=== PATIENT | female | born 1970 | race Caucasian/White ===

== ENCOUNTER 2016-06-15 10:22 | Emergency (ER) | payer SELFPAY ==
[~2016-06-15 10:22] MED LIST: CREO3000 PO; ESTR1TAB PO; HYDR25TA5 PO; LISI-515 PO; NORC5TAB PO; PROT40TA PO; VITA100T2 PO
[2016-06-15 10:45] VITALS: BP 154/90; PULSE 95; RESP 18; TEMP 98; O2SAT 99
[2016-06-15] MEDS ORDERED: SODIUM CHLOR 0.9% 1000 ML INJ 1,000 ML IV SCH (10:51)
--- NOTE | 2016-06-15 10:59 | PD ---
HPI Chief Complaint: Chest Pain Time Seen by Provider: 10:44 Travel History International Travel<30 days: No Contact w/Intl Traveler<30days: No Traveled to known affect area: No History of Present Illness HPI 45yo F with PMH of cirrhosis, hep c, chronic alcohol abuse presents to the ED with c/o epigastric abdominal pain today associated with NBNB vomiting. States she started having mid parietal headache after vomiting. Pain is epigastric and nonradiating. Denies any fever, chest pain, sob, urinary complaints, focal weakness or numbness. Headache is associated with photophobia but denies any neck pain, visual changes. PFSH Past Medical History Arthritis: Yes Asthma: No Blood Disorders: No Anxiety: No Depression: No Heart Rhythm Problems: No Cancer: No Cardiac Catheterization: No Cardiovascular Problems: Yes (HTN) High Cholesterol: No Chemotherapy: No Chest Pain: No Congestive Heart Failure: No Cirrhosis: Yes (hepatitis c ) COPD: No Diabetes: No Diminished Hearing: No Endocrine: No (PT STATES BEING TESTED NOW) Gastrointestinal Disorders: Yes (Liver Cirrhosis, pancreatitis) Genitourinary: Yes Hepatitis: Yes (C/CIRRHOSIS) Hypertension: Yes Immune Disorder: No Implanted Vascular Access Dvce: No Kidney Stones: Yes Musculoskeletal: Yes Neurologic: No Psychiatric: No Reproductive: No Respiratory: No Immunizations Current: No Pancreatitis: Yes Radiation Therapy: No Sleep Apnea: No Thyroid Disease: No ?: Not Menopausal: Yes : 0 Para: 0 Miscarriage: 0 : 0 Past Surgical History Abdominal Surgery: Yes (ERCP) Appendectomy: Yes Cholecystectomy: Yes Coronary Artery Bypass Graft: No Hysterectomy: Yes Pacemaker: No Other Surgery: Yes (hysterectomy,appendectomy, cholecystectomy) Family History Family Hypercholesterolemia: Yes (FATHER) Social History Alcohol Use: Yes (6 a day) Tobacco Use: Yes (1/2 pack per day ) Substance Use: No Allergies-Medications (Allergen,Severity, Reaction): Coded Allergies: Codeine (Verified Adverse Reaction, Severe, itching, 06/15/16) Reported Meds & Prescriptions Reported Meds & Active Scripts Active Omeprazole 40 Mg Cap 40 Mg PO DAILY 14 Days Reported Hydrochlorothiazide 25 Mg Tab 25 Mg PO Q8HR Lisinopril 20 Mg Tab 20 Mg PO DAILY Estradiol 1 Mg Tab 1 Mg PO DAILY Review of Systems Except as stated in HPI: all other systems reviewed are Neg Physical Exam Narrative GENERAL: 45yo F in mild distress. SKIN: Warm and dry. HEAD: Atraumatic. Normocephalic. EYES: Pupils equal and round. No scleral icterus. No injection or drainage. EOMI. NECK: Trachea midline. No JVD. No nuchal rigidity. CARDIOVASCULAR: Regular rate and rhythm. No murmur appreciated. RESPIRATORY: No accessory muscle use. Clear to auscultation. Breath sounds equal bilaterally. GASTROINTESTINAL: Abdomen soft, +TTP epigastric region. No rebound tenderness or guarding. MUSCULOSKELETAL: No obvious deformities. No clubbing. No cyanosis. No edema. NEUROLOGICAL: Awake and alert. No obvious cranial nerve deficits. Motor grossly within normal limits. Normal speech. PSYCHIATRIC: Appropriate mood and affect; insight and judgment normal. Data Data Last Documented VS Vital Signs Date Time Temp Pulse Resp B/P Pulse Ox O2 Delivery O2 Flow Rate FiO2 06/15/16 12:55 78 16 133/69 98 Room Air 06/15/16 10:45 98.0 Orders Complete Blood Count With Diff (06/15/16 10:51) Comprehensive Metabolic Panel (06/15/16 10:51) Lipase (06/15/16 10:51) Prothrombin Time / Inr (Pt) (06/15/16 10:51) Urinalysis - C+S If Indicated (06/15/16 10:51) Ct Abd/Pel W Iv Contrast(Rout) (06/15/16 10:51) Iv Access Insert/Monitor (06/15/16 10:51) Ecg Monitoring (06/15/16 10:51) Oximetry (06/15/16 10:51) Morphine Inj (Morphine Inj) (06/15/16 11:00) Ondansetron Inj (Zofran Inj) (06/15/16 11:00) Sodium Chlor 0.9% 1000 Ml Inj (Ns 1000 M (06/15/16 10:51) Sodium Chloride 0.9% Flush (Ns Flush) (06/15/16 11:00) Troponin I (06/15/16 10:51) Iohexol 350 Inj (Omnipaque 350 Inj) (06/15/16 12:17) Pantoprazole Inj (Protonix Inj) (06/15/16 12:45) Al-Mag Hy-Si 40-40-4 Mg/Ml Liq (Mag-Al P (06/15/16 12:45) Lidocaine 2% Viscous (Xylocaine 2% Visco (06/15/16 12:45) Labs Laboratory Tests Test 06/15/16 06/15/16 10:35 11:15 White Blood Count 4.4 TH/MM3 Red Blood Count 4.53 MIL/MM3 Hemoglobin 14.0 GM/DL Hematocrit 41.8 % Mean Corpuscular Volume 92.4 FL Mean Corpuscular Hemoglobin 30.9 PG Mean Corpuscular Hemoglobin 33.4 % Concent Red Cell Distribution Width 14.6 % Platelet Count 114 TH/MM3 Mean Platelet Volume 8.0 FL Neutrophils (%) (Auto) 60.3 % Lymphocytes (%) (Auto) 30.4 % Monocytes (%) (Auto) 6.0 % Eosinophils (%) (Auto) 1.8 % Basophils (%) (Auto) 1.5 % Neutrophils # (Auto) 2.6 TH/MM3 Lymphocytes # (Auto) 1.3 TH/MM3 Monocytes # (Auto) 0.3 TH/MM3 Eosinophils # (Auto) 0.1 TH/MM3 Basophils # (Auto) 0.1 TH/MM3 CBC Comment DIFF FINAL Differential Comment Prothrombin Time 11.6 SEC Prothromb Time International 1.0 RATIO Ratio Sodium Level 142 MEQ/L Potassium Level 4.1 MEQ/L Chloride Level 106 MEQ/L Carbon Dioxide Level 26.6 MEQ/L Anion Gap 9 MEQ/L Blood Urea Nitrogen 10 MG/DL Creatinine 0.75 MG/DL Estimat Glomerular Filtration 84 ML/MIN Rate Random Glucose 113 MG/DL Calcium Level 8.7 MG/DL Total Bilirubin 0.9 MG/DL Aspartate Amino Transf 165 U/L (AST/SGOT) Alanine Aminotransferase 133 U/L (ALT/SGPT) Alkaline Phosphatase 168 U/L Troponin I LESS THAN 0.02 NG/ML Total Protein 9.1 GM/DL Albumin 3.3 GM/DL Lipase 157 U/L Urine Collection Type CLEAN CATCH Urine Color YELLOW Urine Turbidity CLEAR Urine pH 6.0 Urine Specific [place] 1.021 Urine Protein NEG mg/dL Urine Glucose (UA) NEG mg/dL Urine Ketones TRACE mg/dL Urine Occult Blood NEG Urine Nitrite NEG Urine Bilirubin NEG Urine Leukocyte Esterase NEG Urine RBC 0-3 /hpf Urine WBC 0-2 /hpf Urine Squamous Epithelial > 8 /hpf Cells Urine Bacteria RARE /hpf Urine Mucus FEW /lpf Microscopic Urinalysis Comment CULT NOT INDICATED Urine Collection Time 11:15 [facility] Medical Decision Making Medical Screen Exam Complete: Yes Emergency Medical Condition: Yes Interpretation(s) EKG: Sinus tachycardia at 102bpm. Normal axis. No ST segment elevation or depression. Differential Diagnosis Acute pancreatitis vs. gastritis vs. colitis vs. migraine headache Narrative Course 45yo F with epigastric abdominal pain today that is associated with vomiting and nausea. Pt subsequently had a migraine like headache after vomiting. No neurologic deficits or red flags for headache. Pt does have history of cirrhosis and hep c and chronic alcohol use. Last drink yesterday. Labs reviewed, no leukocytosis. Liver enzymes elevated which she has before. Total bilirubin normal. Troponin negative. Lipase 157. Pt reevaluated after morphine and zofran. States that headache has completely resolved. Still with mild epigastric tenderness. Pt given pantoprazole and GI cocktail. Pt tolerating PO. CTa/p showed no inflammatory changes around pancreas. No findings to indicate bowel obstruction. Pt instructed to stop drinking alcohol and to follow up with GI as outpatient. Return precautions given. VS stable. Diagnosis Primary Impression: Gastritis Qualified Code: K29.00 - Acute gastritis, presence of bleeding unspecified, unspecified gastritis type Patient Instructions: General Instructions Departure Forms: Tests/Procedures, Work Release Enter return to work date: Jun 16, 2016 Additional Instructions: Please follow up with your health informatics instructor as outpatient. Return to the ED if symptoms worsen. Med/Other Pt SpecificInfo: Prescription(s) given Scripts Omeprazole 40 Mg Cap40 Mg PO DAILY 14 Days Ref 0 Prov:Sparkle Cortez DO 06/15/16 Disposition: 01 DISCHARGE HOME Condition: Stable Sparkle Cortez DO Jun 15, 2016 10:59
[2016-06-15] MEDS ORDERED: MORPHINE SULFATE 4 MG/ML INJ IV PUSH ONE (11:00)
[2016-06-15] MEDS ORDERED: SODIUM CHLORIDE 0.9% FLUSH 5 ML FLUSH IVF PRN (11:00)
[2016-06-15] MEDS ORDERED: ONDANSETRON HCL 4 MG/2 ML VIAL IVP ONE (11:00)
[2016-06-15 11:16] LABS: AUTOMATED NEUTROPHIL # 2.6 TH/MM3 (1.8-7.7); BASOPHIL # 0.1 TH/MM3 (0-0.2); BASOPHIL % 1.5 % (0.0-2.0); EOSINOPHIL # 0.1 TH/MM3 (0-0.4); EOSINOPHIL % 1.8 % (0.0-4.0); HEMATOCRIT 41.8 % (35.0-46.0); HEMO FLAGS DIFF FINAL; LYMPH % 30.4 % (9.0-44.0); LYMPHOCYTE # 1.3 TH/MM3 (1.0-4.8); MEAN CELL VOLUME 92.4 FL (80.0-100.0); MEAN CORPUSCULAR HEMOGLOBIN 30.9 PG (27.0-34.0); MEAN CORPUSCULAR HGB CONC 33.4 % (32.0-36.0); NEUT % 60.3 % (16.0-70.0); PLATELET COUNT 114 TH/MM3 (150-450); RED BLOOD COUNT 4.53 MIL/MM3 (4.00-5.30); RED CELL DISTRIBUTION WIDTH 14.6 % (11.6-17.2); WHITE BLOOD COUNT 4.4 TH/MM3 (4.0-11.0)
[2016-06-15 11:26] VITALS: O2SAT 99
[2016-06-15 11:26] LABS: CHLORIDE 106 MEQ/L (98-107); POTASSIUM 4.1 MEQ/L (3.5-5.1); SODIUM (NA) 142 MEQ/L (136-145)
[2016-06-15 11:29] LABS: PROTHROMBIN TIME - PATIENT 11.6 SEC (9.8-11.6)
[2016-06-15 11:30] LABS: ANION GAP 9 MEQ/L (5-15); BICARBONATE 26.6 MEQ/L (21.0-32.0); BLOOD UREA NITROGEN 10 MG/DL (7-18)
[2016-06-15 11:33] LABS: ALT (GPT) 133 U/L (10-53); AST (GOT) 165 U/L (15-37); GLOMERULAR FILTRATION RATE 84 ML/MIN (>89)
[2016-06-15 11:34] LABS: TOTAL BILIRUBIN ADULT 0.9 MG/DL (0.2-1.0)
[2016-06-15 11:36] LABS: ALKALINE PHOSPHATASE 168 U/L (45-117)
[2016-06-15 11:36] LABS: BLOOD, URINE NEG (NEG); GLUCOSE,URINE NEG (NEG); KETONE, URINE TRACE mg/dL (NEG); NITRITE,URINE NEG (NEG)
[2016-06-15 11:45] LABS: METHOD OF COLLECTION CLEAN CATCH; MUCUS URINE FEW /lpf (OCC); RBC, URINE 0-3 /hpf (0-3); SQUAMOUS EPITHELIAL CELL URINE > 8 /hpf (0-5); URINE COLOR YELLOW (YELLW/STRAW); WBC, URINE 0-2 /hpf (0-5)
[2016-06-15 11:46] LABS: BACTERIA, URINE RARE /hpf; COMMENT (UR) CULT NOT INDICATED; CULTURE IF INDICATED CULT NOT INDICATED
[2016-06-15] MEDS ORDERED: IOHEXOL 350 MG/ML 10 ML VIAL (for RAD DIAG) IV ONE (12:17)
--- NOTE | 2016-06-15 12:34 | RADHPO ---
EXAM DATE/TIME: 06/15/2016 12:07 [facility] COMPARISON: CT ABDOMEN & PELVIS W CONTRAST, April 28, 2016, 9:42. INDICATIONS : Mid abdominal pain and vomiting. IV CONTRAST: 95 cc Omnipaque 350 (iohexol) IV ORAL CONTRAST: No oral contrast ingested. RADIATION DOSE: 18.70 CTDIvol (mGy) MEDICAL HISTORY : Hypertension. Pancreatitis. SURGICAL HISTORY : Appendectomy. Cholecystectomy.Hysterectomy. ENCOUNTER: Initial ACUITY: 1 day PAIN SCALE: 7/10 LOCATION: abdomne/pelvis TECHNIQUE: Volumetric scanning of the abdomen and pelvis was performed. Using automated exposure control and ad justment of the mA and/or kV according to patient size, radiation dose was kept as low as reasonably achievable to obtain optimal diagnostic quality images. FINDINGS: LOWER LUNGS: The visualized lower lungs are clear. LIVER: Homogeneous density without lesion. There is no dilation of the biliary tree. No calcified gallston es. The patient is post cholecystectomy. SPLEEN: Normal size without lesion. PANCREAS: Within normal limits. KIDNEYS: Normal in size and shape. There is no mass, stone or hydronephrosis. ADRENAL GLANDS: Within normal limits. VASCULAR: There is no aortic aneurysm. BOWEL/MESENTERY: The stomach, small bowel, and colon demonstrate no acute abnormality. There is no free intraperitone al air or fluid. The patient is post appendectomy. ABDOMINAL WALL: Within normal limits. RETROPERITONEUM: There is no lymphadenopathy. BLADDER: No wall thickening or mass. REPRODUCTIVE: The patient is post hysterectomy. INGUINAL: There is no lymphadenopathy or hernia. MUSCULOSKELETAL: Within normal limits for patient age. CONCLUSION: 1. No findings to indicate bowel obstruction. No inflammatory changes are seen around the pancreas. 2. The patient is post cholecystectomy, appendectomy and hysterectomy. Daryl Leon MD on June 15, 2016 at 12:27 Board Certified Radiologist. This report was verified electronically.
[2016-06-15] MEDS ORDERED: ALUMINUM/MAGNESIUM/SIMETH 30 ML CUP PO ONE (12:45)
[2016-06-15] MEDS ORDERED: PANTOPRAZOLE SODIUM 40 MG VIAL IV PUSH ONE (12:45)
[2016-06-15] MEDS ORDERED: LIDOCAINE VISCOUS 2% SOLN 15 ML UDC PO ONE (12:45)
[2016-06-15 12:55] VITALS: BP 133/69; PULSE 78; RESP 16; O2SAT 98
[2016-06-15] MEDS ORDERED: OMEP40CA2 PO (13:02)
--- NOTE | 2016-06-16 17:16 | EKG ---
Date Performed: 06/15/2016 Time Performed: 10:27:28 PTAGE: 45 years EKG: Sinus tachycardia Since PREVIOUS TRACING , no significant change noted Normal ECG except for rate PREVIOUS TRACIN 04/28/2016 07.47 DOCTOR: Mireya Navarro Interpretating Date/Time 06/16/2016 17:14:37
== END 2016-06-15 13:27 | disposition home or self-care (01) ==
LOC: PHED 10:22
DX: K29.70 Gastritis, unspecified, without bleeding (principal); R00.0 Tachycardia, unspecified; I10 Essential (primary) hypertension; B19.20 Unspecified viral hepatitis C without hepatic coma; K74.60 Unspecified cirrhosis of liver; Z87.442 Personal history of urinary calculi; F17.210 Nicotine dependence, cigarettes, uncomplicated
CPT/HCPCS: 74177; 80053; 81001; 83690; 84484; 85025; 85610; 93005; 96361; 96374; 96375; 99284; C9113; J2270; J2405; J7030; Q9967

== ENCOUNTER 2016-06-17 07:21 | Emergency (ER) | payer SELFPAY ==
[~2016-06-17] VITALS: Ht 165.1 cm; Wt 80.0 kg
[~2016-06-17 07:21] MED LIST changes: +OMEP40CA2 PO
[2016-06-17 07:24] VITALS: BP 194/99; PULSE 97; RESP 20; TEMP 97.9; O2SAT 100
--- NOTE | 2016-06-17 07:42 | PD ---
HPI Chief Complaint: Complaint Time Seen by Provider: 07:37 Travel History International Travel<30 days: No Contact w/Intl Traveler<30days: No Traveled to known affect area: No History of Present Illness HPI 45-year-old female here for evaluation of left flank pain. The patient reports having left flank pain for the last 2 days which she states is sharp, moderate to severe, worse with movement and palpation, radiates up and down her left flank, associated with nausea and vomiting. The patient reports history of kidney stones and is convinced that she has a kidney stone. No dysuria. No fevers or chills. No chest pain or dyspnea. She has had a cough that is nonproductive. No hemoptysis. The patient has history of cirrhosis and hepatitis C. She was seen in the emergency department for similar symptoms 2 days ago. At that time her CBC was reassuring. CMP shows slight elevation in LFTs with AST 165, ALT 133, alkaline phosphatase 168. Lipase was 157. UA did not show any blood and was not suggestive of UTI. CT abdomen and pelvis showed no findings to indicate bowel obstruction, no inflammatory changes around the pancreas, the patient is status post cholecystectomy, appendectomy, and hysterectomy. There were no renal calculi noted. Patient denies trauma. No paresthesias or motor deficits. No bowel or bladder incontinence or retention. PFSH Past Medical History Arthritis: Yes Asthma: No Blood Disorders: No Anxiety: No Depression: No Heart Rhythm Problems: No Cancer: No Cardiac Catheterization: No Cardiovascular Problems: Yes (HTN) High Cholesterol: No Chemotherapy: No Chest Pain: No Congestive Heart Failure: No Cirrhosis: Yes (hepatitis c ) COPD: No Diabetes: No Diminished Hearing: No Gastrointestinal Disorders: Yes (Liver Cirrhosis, pancreatitis) Genitourinary: Yes Hepatitis: Yes (C/CIRRHOSIS) Hypertension: Yes Immune Disorder: No Implanted Vascular Access Dvce: No Kidney Stones: Yes Musculoskeletal: Yes Neurologic: No Psychiatric: No Reproductive: No Respiratory: No Immunizations Current: No Pancreatitis: Yes Radiation Therapy: No Sleep Apnea: No Thyroid Disease: No ?: Not Menopausal: Yes : 0 Para: 0 Miscarriage: 0 : 0 Past Surgical History Abdominal Surgery: Yes (ERCP) Appendectomy: Yes Cholecystectomy: Yes Coronary Artery Bypass Graft: No Hysterectomy: Yes Pacemaker: No Other Surgery: Yes (hysterectomy,appendectomy, cholecystectomy) Family History Family Hypercholesterolemia: Yes (FATHER) Social History Alcohol Use: Yes (6-8 beers a day) Tobacco Use: Yes (1/2 pack per day ) Substance Use: No Allergies-Medications (Allergen,Severity, Reaction): Coded Allergies: Codeine (Verified Adverse Reaction, Severe, itching, 06/15/16) Reported Meds & Prescriptions Reported Meds & Active Scripts Active Omeprazole 40 Mg Cap 40 Mg PO DAILY 14 Days Reported Hydrochlorothiazide 25 Mg Tab 25 Mg PO Q8HR Lisinopril 20 Mg Tab 20 Mg PO DAILY Estradiol 1 Mg Tab 1 Mg PO DAILY Review of Systems Except as stated in HPI: all other systems reviewed are Neg Physical Exam Narrative GENERAL: Well-developed, well-nourished, comfortable, no acute distress. SKIN: Warm and dry. No rash. HEAD: Atraumatic. Normocephalic. EYES: Pupils equal and round. No scleral icterus. No injection or drainage. ENT: Mucous membranes pink and moist. NECK: Trachea midline. No JVD. CARDIOVASCULAR: Regular rate and rhythm. No murmur appreciated. RESPIRATORY: No accessory muscle use. Clear to auscultation. Breath sounds equal bilaterally. GASTROINTESTINAL: Abdomen soft, non-tender, nondistended. MUSCULOSKELETAL: No obvious deformities. No clubbing. No cyanosis. No edema. Left CVA tenderness. No right CVA tenderness. Skin over left flank is sensitive. No midline vertebral step-off or tenderness. NEUROLOGICAL: Awake and alert. No obvious cranial nerve deficits. Motor grossly within normal limits. Normal speech. PSYCHIATRIC: Appropriate mood and affect; insight and judgment normal. Data Data Last Documented VS Vital Signs Date Time Temp Pulse Resp B/P Pulse Ox O2 Delivery O2 Flow Rate FiO2 06/17/16 07:24 97.9 97 20 194/99 100 Room Air Orders Complete Blood Count With Diff (06/17/16 07:37) Comprehensive Metabolic Panel (06/17/16 07:37) Act Partial Throm Time (Ptt) (06/17/16 07:37) Prothrombin Time / Inr (Pt) (06/17/16 07:37) Ckmb (Isoenzyme) Profile (06/17/16 07:37) Troponin I (06/17/16 07:37) Urinalysis - C+S If Indicated (06/17/16 07:37) Iv Access Insert/Monitor (06/17/16 07:37) Electrocardiogram (06/17/16 07:37) Ecg Monitoring (06/17/16 07:37) Oximetry (06/17/16 07:37) Oxygen Administration (06/17/16 07:37) Ct Pulmonary Angiogram (06/17/16 07:37) Sodium Chloride 0.9% Flush (Ns Flush) (06/17/16 07:45) Morphine Inj (Morphine Inj) (06/17/16 07:45) Ondansetron Inj (Zofran Inj) (06/17/16 07:45) Sodium Chlor 0.9% 1000 Ml Inj (Ns 1000 M (06/17/16 07:45) Lipase (06/17/16 08:00) Iohexol 350 Inj (Omnipaque 350 Inj) (06/17/16 08:36) Ketorolac Inj (Toradol Inj) (06/17/16 09:15) Labs Laboratory Tests Test 06/17/16 06/17/16 07:50 08:00 Urine Color YELLOW Urine Turbidity CLEAR Urine pH 5.5 Urine Specific [place] 1.016 Urine Protein NEG mg/dL Urine Glucose (UA) NEG mg/dL Urine Ketones NEG mg/dL Urine Occult Blood NEG Urine Nitrite NEG Urine Bilirubin NEG Urine Urobilinogen LESS THAN 2.0 MG/DL Urine Leukocyte Esterase NEG Urine RBC LESS THAN 1 /hpf Urine WBC 1 /hpf Urine Squamous Epithelial 2 /hpf Cells Urine Mucus FEW /lpf Microscopic Urinalysis Comment CULT NOT INDICATED White Blood Count 3.2 TH/MM3 Red Blood Count 4.48 MIL/MM3 Hemoglobin 14.0 GM/DL Hematocrit 41.0 % Mean Corpuscular Volume 91.4 FL Mean Corpuscular Hemoglobin 31.3 PG Mean Corpuscular Hemoglobin 34.2 % Concent Red Cell Distribution Width 15.1 % Platelet Count 96 TH/MM3 Mean Platelet Volume 8.1 FL Neutrophils (%) (Auto) 47.2 % Lymphocytes (%) (Auto) 41.5 % Monocytes (%) (Auto) 8.4 % Eosinophils (%) (Auto) 2.4 % Basophils (%) (Auto) 0.5 % Neutrophils # (Auto) 1.5 TH/MM3 Lymphocytes # (Auto) 1.3 TH/MM3 Monocytes # (Auto) 0.3 TH/MM3 Eosinophils # (Auto) 0.1 TH/MM3 Basophils # (Auto) 0.0 TH/MM3 CBC Comment AUTO DIFF Differential Comment AUTO DIFF CONFIRMED Platelet Estimate LOW Platelet Morphology Comment NORMAL Prothrombin Time 11.7 SEC Prothromb Time International 1.1 RATIO Ratio Activated Partial 25.9 SEC Thromboplast Time Sodium Level 140 MEQ/L Potassium Level 4.0 MEQ/L Chloride Level 107 MEQ/L Carbon Dioxide Level 25.8 MEQ/L Anion Gap 7 MEQ/L Blood Urea Nitrogen 9 MG/DL Creatinine 0.66 MG/DL Estimat Glomerular Filtration 97 ML/MIN Rate Random Glucose 99 MG/DL Calcium Level 8.6 MG/DL Total Bilirubin 0.7 MG/DL Aspartate Amino Transf 145 U/L (AST/SGOT) Alanine Aminotransferase 129 U/L (ALT/SGPT) Alkaline Phosphatase 164 U/L Total Creatine Kinase 45 U/L Troponin I LESS THAN 0.02 NG/ML Total Protein 8.5 GM/DL Albumin 3.6 GM/DL Lipase 208 U/L MDM Medical Decision Making Medical Screen Exam Complete: Yes Emergency Medical Condition: Yes Medical Record Reviewed: Yes Interpretation(s) EKG: Sinus, rate 78, normal axis, normal intervals, no acute ischemic abnormality. Differential Diagnosis Musculoskeletal pain, pyelonephritis, nephrolithiasis unlikely, dissection unlikely, shingles, PE Narrative Course Vital signs show heart rate 97, blood pressure 194/99, pulse ox 100% on room air , oral temp of 97.9F. CBC is remarkable for WBC 3.2, platelets 96. Leukopenia and thrombocytopenia is not new for the patient. CMP is remarkable for AST 145, ALT 129, alkaline phosphatase 164 which is around her baseline, otherwise unremarkable. Lipase is 208. Cardiac enzymes are negative. UA is completely within normal limits. Specifically there is no blood. No signs of infection. CT pulmonary angiogram: Normal exam. The patient was given IV morphine and had some improvement. She was made aware of all findings. I doubt she has kidney stones as CT abdomen pelvis 2 days ago showed no stones and there is no blood in her urine today. This could be shingles. At this point the patient is stable for discharge home out patient follow-up with her primary care physician. Pain is musculoskeletal. There is no midline vertebral step-off or tenderness. No red flags for back pain. She was told to look for a rash and to return to the emergency department as soon as she sees one. She was also informed on when to return to the emergency Department sooner. She verbalizes understanding and agreement with plan. Diagnosis Primary Impression: Left flank pain Referrals: Primary Care Physician 3 days Additional Instructions: Follow-up with your primary care physician this week. Return to the emergency department for worsening symptoms or any other concerns. Scripts Tramadol 50 Mg Tab50 Mg PO Q6H PRN (PAIN) #15 TAB Ref 0 Prov:Sunday Buchanan MD 06/17/16 Disposition: 01 DISCHARGE HOME Condition: Stable Sunday Buchanan MD Jun 17, 2016 07:41
[2016-06-17] MEDS ORDERED: ONDANSETRON HCL 4 MG/2 ML VIAL IV PUSH ONE (07:45)
[2016-06-17] MEDS ORDERED: SODIUM CHLORIDE 0.9% FLUSH 5 ML FLUSH IVF PRN (07:45)
[2016-06-17] MEDS ORDERED: MORPHINE SULFATE 4 MG/ML INJ IV PUSH ONE (07:45)
[2016-06-17] MEDS ORDERED: SODIUM CHLOR 0.9% 1000 ML INJ 1,000 ML IV ONE (07:45)
[2016-06-17 08:19] LABS: AUTOMATED NEUTROPHIL # 1.5 TH/MM3 (1.8-7.7); BASOPHIL % 0.5 % (0.0-2.0); EOSINOPHIL # 0.1 TH/MM3 (0-0.4); EOSINOPHIL % 2.4 % (0.0-4.0); LYMPH % 41.5 % (9.0-44.0); LYMPHOCYTE # 1.3 TH/MM3 (1.0-4.8); MEAN CELL VOLUME 91.4 FL (80.0-100.0); MEAN CORPUSCULAR HEMOGLOBIN 31.3 PG (27.0-34.0); MEAN CORPUSCULAR HGB CONC 34.2 % (32.0-36.0); MONO % 8.4 % (0.0-8.0); NEUT % 47.2 % (16.0-70.0); PLATELET COUNT 96 TH/MM3 (150-450); RED BLOOD COUNT 4.48 MIL/MM3 (4.00-5.30); RED CELL DISTRIBUTION WIDTH 15.1 % (11.6-17.2); WHITE BLOOD COUNT 3.2 TH/MM3 (4.0-11.0)
[2016-06-17 08:19] LABS: BLOOD, URINE NEG (NEG); COMMENT (UR) CULT NOT INDICATED; CULTURE IF INDICATED CULT NOT INDICATED; GLUCOSE,URINE NEG (NEG); KETONE, URINE NEG (NEG); MUCUS URINE FEW /lpf (OCC); NITRITE,URINE NEG (NEG); PH, URINE 5.5 (5.0-8.5); SQUAMOUS EPITHELIAL CELL URINE 2 /hpf (0-5); URINE COLOR YELLOW (YELLW/STRAW)
[2016-06-17 08:22] LABS: HEMO FLAGS AUTO DIFF
[2016-06-17 08:24] LABS: APTT (PATIENT) 25.9 SEC (24.3-30.1); INTERNATIONAL NORMALIZED RATIO 1.1 RATIO; PROTHROMBIN TIME - PATIENT 11.7 SEC (9.8-11.6)
[2016-06-17 08:34] LABS: ALT (GPT) 129 U/L (10-53); ANION GAP 7 MEQ/L (5-15); AST (GOT) 145 U/L (15-37); BICARBONATE 25.8 MEQ/L (21.0-32.0); BLOOD UREA NITROGEN 9 MG/DL (7-18); CHLORIDE 107 MEQ/L (98-107); GLOMERULAR FILTRATION RATE 97 ML/MIN (>89); SODIUM (NA) 140 MEQ/L (136-145)
[2016-06-17] MEDS ORDERED: IOHEXOL 350 MG/ML 10 ML VIAL (for RAD DIAG) IV ONE (08:36)
[2016-06-17 08:37] LABS: ALKALINE PHOSPHATASE 164 U/L (45-117); TOTAL BILIRUBIN ADULT 0.7 MG/DL (0.2-1.0)
[2016-06-17 08:42] LABS: CREATINE KINASE 45 U/L (26-192)
[2016-06-17 08:54] LABS: PLATELET ESTIMATE SMEAR LOW (NORMAL); PLATELET MORPHOLOGY NORMAL (NORMAL); SCAN/DIFF AUTO DIFF CONFIRMED
--- NOTE | 2016-06-17 09:09 | RADRPT ---
EXAM DATE/TIME: 06/17/2016 08:31 [facility] COMPARISON: CHEST SINGLE AP, April 28, 2016, 10:02. INDICATIONS : Upper back pain. IV CONTRAST: 59 cc Omnipaque 350 (iohexol) IV RADIATION DOSE: 23.27 CTDIvol (mGy) MEDICAL HISTORY : Hypertension. SURGICAL HISTORY : Hysterectomy. Cholecystectomy.Appendectomy. ENCOUNTER: Initial ACUITY: 1 day PAIN SCALE: 4/10 LOCATION: upper back TECHNIQUE: Volumetric scanning of the chest was performed using a pulmonary embolism protocol MIP images were re constructed. Using automated exposure control and adjustment of the mA and/or kV according to patien t size, radiation dose was kept as low as reasonably achievable to obtain optimal diagnostic quality images. FINDINGS: PULMONARY ARTERIES: No filling defects are seen in the pulmonary arteries through the segmental level. LUNGS: There is no consolidation or pneumothorax . No concerning pulmonary nodule is visualized. PLEURAE: There is no pleural thickening or pleural effusion. MEDIASTINUM: There is good visualization of the great vessels of the middle mediastinum. No evidence of mediastin al or hilar adenopathy/mass. MUSCULOSKELETAL: Within normal limits for patient age. MISCELLANEOUS: The visualized upper abdominal organs demonstrate no acute abnormality. CONCLUSION: Normal examination. Jeffy Silva MD on June 17, 2016 at 9:05 Board Certified Radiologist. This report was verified electronically.
[2016-06-17] MEDS ORDERED: KETOROLAC TROMETHAMINE 30 MG/ML (IVP) VIAL IV PUSH ONE (09:15)
[2016-06-17] MEDS ORDERED: TRAM50TA PO (09:28)
[2016-06-17 09:56] VITALS: BP 135/59
--- NOTE | 2016-06-17 15:01 | EKG ---
Date Performed: 06/17/2016 Time Performed: 08:02:20 PTAGE: 45 years EKG: Sinus rhythm NORMAL ECG NO SIGNIFICANT CHANGE FROM PRIOR ELECTROCARDIOGRAM. PREVIOUS TRACING : 06/15/2016 10.27 DOCTOR: Edilberto Senior Interpretating Date/Time 06/17/2016 14:59:53
== END 2016-06-17 10:00 | disposition home or self-care (01) ==
LOC: NEPC 07:21
DX: R10.84 Generalized abdominal pain (principal); D69.6 Thrombocytopenia, unspecified; D72.819 Decreased white blood cell count, unspecified; Z87.442 Personal history of urinary calculi; I10 Essential (primary) hypertension; B19.20 Unspecified viral hepatitis C without hepatic coma; K74.60 Unspecified cirrhosis of liver; F17.210 Nicotine dependence, cigarettes, uncomplicated; F10.20 Alcohol dependence, uncomplicated
CPT/HCPCS: 71275; 80053; 81001; 82550; 83690; 84484; 85025; 85610; 85730; 93005; 96361; 96374; 96375; 99284; J1885; J2270; J2405; J7030; Q9967

== ENCOUNTER 2018-04-25 08:05 | Observation (INO) ==
--- NOTE | 2018-04-25 09:49 | XR ---
EXAM DATE: 04/25/2018 9:42 AM EST AGE/SEX: 47 years / Female INDICATIONS: Patient states chest pains. CLINICAL DATA: This is the patient's initial encounter. Patient reports that signs and symptoms have been present for 1 day and indicates a pain score of 8/10. MEDICAL/SURGICAL HISTORY: None. None. [place] [facility] [place]. [facility] [place]. . FINDINGS: Portable AP view of the chest demonstrates a normal-sized cardiac silhouette. No effusion, consolidat ion, or pneumothorax is identified. The bones and soft tissues demonstrate no acute finding. EKG line s overlie the patient. CONCLUSION: No acute cardiopulmonary abnormality is identified. Electronically signed by: Jayy Dudley MD 04/25/2018 9:48 AM EST
[2018-04-25] MEDS ORDERED: Morphine Inj 4 MG/ML Vial IM ONE (09:53)
[2018-04-25 09:59] LABS: Baso % (Auto) 0.4 % (0.0-2.0); Eos % (Auto) 1.6 % (0.0-4.0); Hematocrit 34.4 % (35.0-46.0); Hemoglobin 11.6 gm/dL (11.6-15.3); Lymph # (Auto) 0.8 th/mm3 (1.0-4.8); Lymph % (Auto) 31.1 % (9.0-44.0); Mean Corpuscular HGB Conc 33.8 % (32.0-36.0); Mean Corpuscular Volume 85.9 fL (80.0-100.0); Mean Platelet Volume 7.3 fL (7.0-11.0); Mono # (Auto) 0.1 th/mm3 (0.0-0.9); Mono % (Auto) 5.7 % (0.0-8.0); Neut # (Auto) 1.6 th/mm3 (1.8-7.7); Neut % (Auto) 61.2 % (16.0-70.0); Platelet Count 123 th/mm3 (150-450); Red Blood Count 4.01 mil/mm3 (4.00-5.30); Red Cell Distribution Width 15.9 % (11.6-17.2); White Blood Count 2.6 th/mm3 (4.0-11.0)
[2018-04-25 10:11] LABS: Albumin 3.4 g/dL (3.4-5.0); Anion Gap 7 meq/L (5-15); Aspartate Aminotransferase 43 U/L (15-37); Blood Urea Nitrogen 11 mg/dL (7-18); Calcium 8.7 mg/dL (8.5-10.1); Carbon Dioxide 21.9 meq/L (21.0-32.0); Chloride 108 meq/L (98-107); Glomerular Filtration Rate 84 mL/min (>89); Glucose,Random 196 mg/dL (74-106); Lipase 320 U/L (73-393); Potassium 3.8 meq/L (3.5-5.1); Sodium 137 meq/L (136-145)
[2018-04-25 10:13] LABS: Alanine Aminotransferase 38 U/L (10-53)
[2018-04-25 10:17] LABS: Alkaline Phosphatase 183 U/L (45-117); Total Protein 8.2 g/dL (6.4-8.2)
--- NOTE | 2018-04-25 13:24 | P.HPCA ---
History of Present Illness Primary Care Physician: No Primary Care Physician Chief Complaint: Chest pain History of Present Illness: This is a 47-year-old female with prior history of hypertension but states she is taken off medication 2 years ago after losing weight and blood pressure normalizing, also history of tobacco abuse, that presents to ED to be evaluated for cough and chest pain. Patient states that she has had a dry cough for the past 2 weeks. She had no fever until last night at which time she states that her temperature was 104. Took no medication for it. Went to the pharmacy and spoke with somebody and was told that she should try Mucinex DM. She purchased this but has not tried it. Then around midnight last evening she developed a sharp central chest pain that has been there constantly ever since. Coughing seems to worsen. Certain movements seem to worsen. She has noticed wheezing. States there are multiple sick contacts at work. Denies history of CAD. She has had for stress test this facility. October 2009 she had a nonischemic Henry protocol ETT. About 4 months later she had adenosine thallium stress that was nonischemic. In 2012 she had another Henry protocol ETT that was nonischemic. States she has had no other cardiac evaluation since. Denies recent travel. Has had hypertension in the past. She states that she was told by her physician at the time that she no longer any medicine 2 years ago after losing weight. Denies hyperlipidemia, diabetes, and known CAD. States that her father had onset CAD at age 45. He had a bypass. He at age 74 of congestive heart failure. Patient has been smoking 1/2 pack of cigarettes daily for about a year and a half a prior that she was smoke 2 pack of cigarettes daily for about 25 years. She has had no alcohol in about a year. Denies illicit drug use. - Diagnosis (1) Chest pain (2) Hypertension (3) Bronchitis (4) Tobacco abuse Review of Systems General: Patient denies fevers, chills, and recent travel. HEENT: Patient denies headache, sore throat, difficulty swallowing. Cardiovascular: Has the chest discomfort as mentioned above. Denies sensation of heart beating rapidly or irregularly. No syncope. She was diaphoretic last evening. Respiratory: She has had a nonproductive cough for the past 2 weeks. She notes some wheezing. She has been short of breath. Denies inspirational chest discomfort. Denies hemoptysis. GI: Patient denies nausea, vomiting, diarrhea, abdominal pain, bloody stools. Musculoskeletal: Patient denies joint pain or edema. Denies calf pain or edema. Neurovascular: Patient denies numbness, tingling, weakness in extremities. Denies headache. Endocrine: Denies polyuria and polydipsia. Hematologic: Denies easy bruising. Skin: She also complains of an area along the medial aspect of her right foot. He did start out as like a little pimple but has gotten larger. She took clindamycin about a month ago but it did not improve. PMFSH - History History Provided By: Patient - Medical History Medical History: Medical History (Last Reviewed 04/25/18 @ 09:30 by Bijan Martinez) Alcoholic cirrhosis HTN (hypertension) Hx of hysterectomy - Surgical History Surgical History: Surgical History (Last Reviewed 04/25/18 @ 09:30 by Bijan Martinez) Hx of appendectomy Hx of cholecystectomy - Tobacco History Second Hand Smoke Exposure: Yes Tobacco Use In Past 30 Days: Yes Smoking Status: Current every day smoker Tobacco Type: Cigarettes - Alcohol History How Often Do You Have a Drink Containing Alcohol: Never - Substance Use History Substance History: No History of Abuse - Travel History Recent Travel in the [place] Within the Last 8 Weeks: No Recent Travel Out of the Country Within the Last 8 Weeks: No - Immunization History Tetanus Immunization: Unsure Medications and Allergies Active Medications: Active Medications Albuterol (Duoneb Neb (Prn)) 1 ampul NEB Q4HR NEB PRN PRN Reason: SHORTNESS OF BREATH/WHEEZING Aspirin (Aspirin) 325 mg PO DAILY PATRIC Ondansetron HCl (Zofran Inj) 4 mg IV.PUSH Q6H PRN PRN Reason: NAUSEA Sodium Chloride (Ns Flush) 2 ml IV.FLUSH UNSCH PRN PRN Reason: FLUSH AFTER USING IV ACCESS Sodium Chloride (Ns Flush) 2 ml IV.FLUSH BID PATRIC Sodium Chloride (Ns Flush) 2 ml IV.FLUSH PRN PRN PRN Reason: FLUSH AFTER USING IV ACCESS Allergies Allergy/AdvReac Type Severity Reaction Status Date / Time codeine AdvReac Severe itching Verified 04/25/18 08:09 Home Medications Medication Instructions Recorded Confirmed Type No Known Home Medications 04/25/18 04/25/18 History Exam Vital signs: Vital Signs 04/25/18 08:07 04/25/18 08:09 04/25/18 09:49 Temperature 98.3 F 98.9 F Pulse Rate 83 79 76 Respiratory Rate 20 20 Blood Pressure 204/88 H 170/80 H Pulse Oximetry 100 98 98 04/25/18 09:50 Temperature Pulse Rate 79 Respiratory Rate 20 Blood Pressure 170/80 H Pulse Oximetry 98 Intake & Output 04/24/18 04/25/18 04/25/18 18:59 06:59 18:59 Weight 77.111 kg Other: Weight On Admission 78.789 kg Narrative: GENERAL: This is a well-nourished, well-developed patient, in no apparent distress. Patient speaks in clear complete sentences. Patient is pleasant. HEENT: Head is atraumatic and normocephalic. Neck is supple without lymphadenopathy and trachea is midline. No JVD or carotid bruits. CARDIOVASCULAR: Regular rate and rhythm without murmurs, gallops, or rubs. RESPIRATORY: Clear to auscultation. Breath sounds equal bilaterally. No wheezes , rales, or rhonchi. Chest wall is tender. No use of accessory muscles. GASTROINTESTINAL: Abdomen is nontender, nondistended. Abdomen soft. No obvious pulsatile mass or bruit. No CVA tenderness. Strong femoral pulses bilaterally. Normal bowel sounds in all quadrants. MUSCULOSKELETAL: Patient is moving upper and lower extremities freely. No calf tenderness or edema, no Homans sign. Strong pulses in upper and lower extremities. NEUROLOGICAL: Patient is alert and oriented. Cranial nerves 2-12 are grossly intact. No focal deficits and speech is clear. SKIN: There is a circular area along the medial aspect of her right foot. It is raised, there is some central redness but no surrounding erythema. No obvious drainage. No streaking or striae. No calf tenderness. Results 04/25/18 09:47 04/25/18 09:47 Cardiac Enzymes 04/25/18 Range/Units 09:47 AST 43 H (15-37) U/L Troponin I Less than 0.02 L (0.02-0.05) ng/mL CBC 04/25/18 Range/Units 09:47 WBC 2.6 L (4.0-11.0) th/mm3 RBC 4.01 (4.00-5.30) mil/mm3 Hgb 11.6 (11.6-15.3) gm/dL Hct 34.4 L (35.0-46.0) % Plt Count 123 L (150-450) th/mm3 Neut # (Auto) 1.6 L (1.8-7.7) th/mm3 Lymph # (Auto) 0.8 L (1.0-4.8) th/mm3 [place] # (Auto) 0.1 (0.0-0.9) th/mm3 Eos # (Auto) 0.0 (0.0-0.4) th/mm3 Baso # (Auto) 0.0 (0.0-0.2) th/mm3 Comprehensive Metabolic Panel 04/25/18 Range/Units 09:47 Sodium 137 (136-145) meq/L Potassium 3.8 (3.5-5.1) meq/L Chloride 108 H (98-107) meq/L Carbon Dioxide 21.9 (21.0-32.0) meq/L BUN 11 (7-18) mg/dL Creatinine 0.74 (0.50-1.00) mg/dL Calcium 8.7 (8.5-10.1) mg/dL AST 43 H (15-37) U/L ALT 38 (10-53) U/L Alkaline Phosphatase 183 H (45-117) U/L Total Protein 8.2 (6.4-8.2) g/dL Albumin 3.4 (3.4-5.0) g/dL Intake and Output 04/24/18 04/25/18 04/25/18 22:59 06:59 14:59 Other: Weight 77.111 kg Weight On Admission 78.789 kg Patient Weight 04/26/18 06:59 Weight 77.111 kg - Imaging and Cardiology Imaging: Impressions Chest X-Ray 04/25/18 09:25 CONCLUSION: No acute cardiopulmonary abnormality is identified. EKG interpretations - EKG EKG shows: sinus rhythm (Initial EKG is sinus rhythm without significant ST segment depressions or elevations.) Caprini VTE Risk Assessment Caprini VTE Risk Assessment: No/Low Risk (score <= 1) Caprini Risk Assessment Model: Point Value = 1 Point Value = 2 Point Value = 3 Point Value = 5 Age 41-60 Minor surgery BMI > 25 kg/m2 Swollen legs Varicose veins or History of unexplained or recurrent spontaneous Oral contraceptives or hormone replacement Sepsis (< 1 month) Serious lung disease, including pneumonia (< 1 month) Abnormal pulmonary function Acute myocardial infarction Congestive heart failure (< 1 month) History of inflammatory bowel disease Medical patient at bed rest Age 61-74 Arthroscopic surgery Major open surgery (> 45 min) Laparoscopic surgery (> 45 min) Malignancy Confined to bed (> 72 hours) Immobilizing plaster cast Central venous access Age >= 75 History of VTE Family history of VTE Factor V Leiden Prothrombin [id number] Lupus anticoagulant Anticardiolipin antibodies Elevated serum homocysteine Heparin-induced thrombocytopenia Other congenital or acquired thrombophilia Stroke (< 1 month) Elective arthroplasty Hip, pelvis, or leg fracture Acute spinal cord injury (< 1 month) Prophylaxis Regimen: Total Risk Factor Score Risk Level Prophylaxis Regimen 0-1 Low Early ambulation 2 Moderate Order ONE of the following: *Sequential Compression Device (SCD) *Heparin 5000 units SQ BID 3-4 Higher Order ONE of the following medications: *Heparin 5000 units SQ TID *Enoxaparin/Lovenox 40 mg SQ daily (WT < 150 kg, CrCl > 30 mL/min) *Enoxaparin/Lovenox 30 mg SQ daily (WT < 150 kg, CrCl > 10-29 mL/min) *Enoxaparin/Lovenox 30 mg SQ BID (WT < 150 kg, CrCl > 30 mL/min) AND/OR *Sequential Compression Device (SCD) 5 or more Highest Order ONE of the following medications: *Heparin 5000 units SQ TID (Preferred with Epidurals) *Enoxaparin/Lovenox 40 mg SQ daily (WT < 150 kg, CrCl > 30 mL/min) *Enoxaparin/Lovenox 30 mg SQ daily (WT < 150 kg, CrCl > 10-29 mL/min) *Enoxaparin/Lovenox 30 mg SQ BID (WT < 150 kg, CrCl > 30 mL/min) AND *Sequential Compression Device (SCD) Assessment and Plan - Assessment (1) Chest pain Code(s): R07.9 - Chest pain, unspecified Status: Acute (2) Hypertension Code(s): I10 - Essential (primary) hypertension Status: Acute (3) Bronchitis Code(s): J40 - Bronchitis, not specified as acute or chronic Status: Acute (4) Tobacco abuse Code(s): Z72.0 - Tobacco use Status: Acute - Plan * Chest pain: Patient symptoms seem atypical, she has had discomfort for about 12 hours and initial troponin is normal.. Patient will continue to have serial cardiac enzymes and EKGs for ruling out purposes. She will be evaluated by Dr. Carlton Mitchell of cardiology and the chest pain center and at that time further plan will be decided. She will need to follow-up with PCP after being discharged. She should return to ED for interval issues. * History of hypertension: Patient states she is taken on medication for losing weight 2 years ago states that her blood pressures have been doing fine since. She was hypertensive upon arrival in the ED. We will continue to monitor. Add as needed Catapres. She wanted to discuss this with her physician. * URI: Patient's cough has been nonproductive so far. States she had a fever this morning. She was wheezing upon examination, will have DuoNeb. Patient will need to quit smoking. She will need to follow-up with PCP. * Tobacco abuse: Patient counseled on importance of smoking cessation. Patient is stable at this time. She is agreeable to this plan. H&P: Quality - VTE Deep Vein Thrombosis/Pulmonary Embolism Present on Admission: No
[2018-04-25 13:55] LABS: Creatine Kinase 44 U/L (26-192)
--- NOTE | 2018-04-25 14:20 | ED ---
HPI General Chief Complaint: Chest Pain Stated Complaint: Chest Pain Complaint Time Seen by Provider: 04/25/18 09:23 Source: patient Mode of arrival: ambulatory Limitations: no limitations History of Present Illness HPI narrative: 47 yo F c/o epigastric discomfort and retrosternal chest pressure. pt states pain is severe. duration approximately 24 hours. pt has hx pancreatitis and believes it may be similar today. pt denies alcohol abuse today. no shortness of breath. no hx cad. pt denies hld. + tobaccoism/HTN. onset at rest. pt reports working long hours 7 days/week every week and believes she may be stressed in relation to work. R medial foot wound also reported. pt seen here prior for same and was prescribed abx for 7 days and no improvement came to pass. Related Data Home Medications Medication Instructions Recorded Confirmed No Known Home Medications 04/25/18 04/25/18 Allergies Allergy/AdvReac Type Severity Reaction Status Date / Time codeine AdvReac Severe itching Verified 04/25/18 08:09 Review of Systems ROS: all other systems reviewed are negative [facility] Social History Social History Substance History: No History of Abuse Second Hand Smoke Exposure: Yes Smoking Status: Current every day smoker Tobacco Type: Cigarettes How Often Do You Have a Drink Containing Alcohol: Never Recent Travel in [facility] within the Last 8 Weeks: No Recent Out of Country Travel within the Last 8 Weeks: No Immunization History Tetanus Immunization: Unsure Exam Narrative Exam Narrative: GENERAL: 47 yo F, pleasant, mild distress 2/2 pain and / or anxiety SKIN: Focused skin assessment warm/dry. HEAD: Atraumatic. Normocephalic. EYES: Pupils equal and round. No scleral icterus. No injection or drainage. ENT: No nasal bleeding or discharge. Mucous membranes pink and moist. NECK: Trachea midline. No JVD. CARDIOVASCULAR: Regular rate and rhythm. No murmur appreciated. RESPIRATORY: No accessory muscle use. Clear to auscultation. Breath sounds equal bilaterally. GASTROINTESTINAL: Abdomen soft, non-tender, nondistended. Hepatic and splenic margins not palpable. MUSCULOSKELETAL: No obvious deformities. No clubbing. No cyanosis. No edema. Approx 2cm raised tenderness irregular mass medial R foot just anterior to calcaneus, concern for neoplastic growth. NEUROLOGICAL: Awake and alert. No obvious cranial nerve deficits. Motor grossly within normal limits. Normal speech. PSYCHIATRIC: Appropriate mood and affect; insight and judgment normal. Course Initial Documented Vital Signs Temperature 98.3 F 04/25/18 08:07 Pulse Rate 83 04/25/18 08:07 Respiratory Rate 20 04/25/18 08:07 Blood Pressure 204/88 H 04/25/18 08:07 Pulse Oximetry 100 04/25/18 08:07 Last Documented Vital Signs Temperature 98.9 F 04/25/18 08:09 Pulse Rate 75 04/25/18 13:52 Respiratory Rate 18 04/25/18 13:52 Blood Pressure 170/80 H 04/25/18 09:50 Pulse Oximetry 99 04/25/18 13:54 Medical Decision Making MDM Narrative Medical decision making narrative: Patient arrives with symptoms concerning for acute coronary syndrome. Workup today including EKG, chest x-ray, CBC, CMP, lipase and troponin is unremarkable. Differential diagnoses considered include but are not limited to PE, PTX, aortic dissection, pericarditis, myocarditis, endocarditis, PNA, esophageal disease, aneurysm, musculoskeletal etiologies, anxiety, cocaine/sympathomimetic abuse. Patient is hemodynamically stable. Pain is controlled. Chest pain center evaluation with serial enzymes and stress test per discretion of chest pain center physician considered next most reasonable step. Results of the workup so far were discussed with the patient. The time of reassessment patient has minimal persistent chest pain. There is no shortness of breath. Patient is agreeable to plan. Podiatry evaluation of R foot will be required as an outpatient. Infectious etiology considered less likely overall. Medical Screen Exam Complete: Yes Emergency Medical Condition: Yes Differential Diagnosis Differential Diagnosis: NSTEMI, unstable angina, coronary vasospasm, PE, PTX, aortic dissection, pericarditis, myocarditis, endocarditis, PNA, esophageal disease, aneurysm, musculoskeletal etiologies, anxiety, cocaine/sympathomimetic abuse Lab Data Lab results reviewed: Yes I reviewed the patient's lab results. Result diagrams: 04/25/18 09:47 04/25/18 09:47 Lab Results 04/25/18 04/25/18 04/25/18 Range/Units 09:47 09:47 13:00 WBC 2.6 L (4.0-11.0) th/mm3 RBC 4.01 (4.00-5.30) mil/mm3 Hgb 11.6 (11.6-15.3) gm/dL Hct 34.4 L (35.0-46.0) % MCV 85.9 (80.0-100.0) fL MCH 29.0 (27.0-34.0) pg MCHC 33.8 (32.0-36.0) % RDW 15.9 (11.6-17.2) % Plt Count 123 L (150-450) th/mm3 MPV 7.3 (7.0-11.0) fL Neut % (Auto) 61.2 (16.0-70.0) % Lymph % (Auto) 31.1 (9.0-44.0) % [place] % (Auto) 5.7 (0.0-8.0) % Eos % (Auto) 1.6 (0.0-4.0) % Baso % (Auto) 0.4 (0.0-2.0) % Neut # (Auto) 1.6 L (1.8-7.7) th/mm3 Lymph # (Auto) 0.8 L (1.0-4.8) th/mm3 [place] # (Auto) 0.1 (0.0-0.9) th/mm3 Eos # (Auto) 0.0 (0.0-0.4) th/mm3 Baso # (Auto) 0.0 (0.0-0.2) th/mm3 WBC Differential . Differential Comment Auto diff final Sodium 137 (136-145) meq/L Potassium 3.8 (3.5-5.1) meq/L Chloride 108 H (98-107) meq/L Carbon Dioxide 21.9 (21.0-32.0) meq/L Anion Gap 7 (5-15) meq/L BUN 11 (7-18) mg/dL Creatinine 0.74 (0.50-1.00) mg/dL Estimated GFR 84 L (>89) mL/min Random Glucose 196 H (74-106) mg/dL Calcium 8.7 (8.5-10.1) mg/dL Total Bilirubin 0.5 (0.2-1.0) mg/dL AST 43 H (15-37) U/L ALT 38 (10-53) U/L Alkaline Phosphatase 183 H (45-117) U/L Total Creatine Kinase 44 (26-192) U/L Troponin I Less than 0.02 L Less than 0.02 L (0.02-0.05) ng/mL Total Protein 8.2 (6.4-8.2) g/dL Albumin 3.4 (3.4-5.0) g/dL Lipase 320 (73-393) U/L Imaging Data Radiologist's impression: Chest X-Ray 04/25/18 09:25 CONCLUSION: No acute cardiopulmonary abnormality is identified. Discharge Plan Discharge Disposition Patient Disposition: 30 Still Patient Physicians Team ED Provider: Daryl Bradley Primary Care Provider: Primary Care Ivon Duncan Attending Provider: Carlton Mitchell Discharge Interventions Interventions: Vital Signs Last Done: 04/25/18 08:09 Status ED Status: Admitted Observation Patient
--- NOTE | 2018-04-25 14:51 | ECG ---
Date Performed: 04/25/2018 Time Performed: 13:03:12 PTAGE: 47 years EKG: Baseline artifact present Sinus rhythm POSSIBLE LEFT ATRIAL ENLARGEMENT POSSIBLE LEFT VENTRICULAR HYPERTROPHY ABNORMAL ECG No significant c hange from prior electrocardiogram. PREVIOUS TRACING : 04/25/2018 08.16 DOCTOR: Ediblerto Senior Interpretating Date/Time 04/25/2018 14:50:14
[2018-04-25] MEDS ORDERED: Ketorolac Inj 30 MG/ML (IVP) Vial IV.PUSH ONE (15:10)
--- NOTE | 2018-04-25 16:14 | XR ---
EXAM DATE: 04/25/2018 4:10 PM EST AGE/SEX: 47 years / Female INDICATIONS: Wound on medial side of right foot for one month, evaluate for possible foreign body CLINICAL DATA: This is the patient's initial encounter. Patient reports that signs and symptoms have been present for 1 month and indicates a pain score of 7/10. MEDICAL/SURGICAL HISTORY: None. None. COMPARISON: [facility], FOOT LIMITED RIGHT 2V, 03/30/2018. . FINDINGS: Bony structures are intact and in normal alignment. Osseous density is normal. . There is some soft tissue swelling along the plantar surface along the mid to posterior foot. No radiopaque foreign bod ies seen. Small heel spur. CONCLUSION: No definite radiopaque foreign body. Nonspecific soft tissue swelling along the plantar surface of the foot. Electronically signed by: Oscar Santos MD 04/25/2018 4:12 PM EST
[2018-04-25] MEDS: ALPRAZolam 0.25 MG Tablet PO PRN (17:03)
[2018-04-25] MEDS: Morphine Inj 4 MG/ML Vial IV.PUSH PRN ×2 (17:03→20:33)
[2018-04-25 18:18] LABS: Creatine Kinase 42 U/L (26-192)
--- NOTE | 2018-04-25 20:16 | ECG ---
Date Performed: 04/25/2018 Time Performed: 08:16:57 PTAGE: 47 years EKG: Sinus rhythm POSSIBLE LEFT ATRIAL ENLARGEMENT BORDERLINE ECG INTERPRETATION BASED ON A DEFAULT AGE OF 40 YEARS PREVIOUS TRACING : 06/17/2016 08.02 Since the previous tracing, no significant change not ed DOCTOR: Jade Austin Interpretating Date/Time 04/25/2018 20:05:53
[2018-04-26] MEDS: ALPRAZolam 0.25 MG Tablet PO PRN ×4 (01:09→23:56)
[2018-04-26] MEDS: Morphine Inj 4 MG/ML Vial IV.PUSH PRN ×3 (01:21→12:28)
--- NOTE | 2018-04-26 08:09 | ECG ---
Date Performed: 04/25/2018 Time Performed: 16:29:25 PTAGE: 47 years EKG: Sinus rhythm POSSIBLE LEFT ATRIAL ENLARGEMENT POSSIBLE LEFT VENTRICULAR HYPERTROPHY ABNORMAL ECG Since PREVIOUS TRACING , no significant change noted PREVIOUS TRACIN04/25/2018 13.03 DOCTOR: Mireya Navarro Interpretating Date/Time 04/26/2018 08:07:17
[2018-04-26] MEDS: Aspirin 325 MG Tablet PO SCH (08:30)
[2018-04-26] MEDS ORDERED: Regadenoson Inj 0.4 MG/5 ML Syringe IV.PUSH ONE (09:13)
--- NOTE | 2018-04-26 10:45 | NM ---
EXAM DATE: 04/26/2018 10:32 AM EST AGE/SEX: 47 years / Female INDICATIONS:Angina. . Mid chest pain for one day. CLINICAL DATA: This is the patient's initial encounter. Patient reports that signs and symptoms have been present for 1 day and indicates a pain score of 5/10. MEDICAL/SURGICAL HISTORY: Hypertension. Appendectomy. Hysterectomy. Cholecystectomy. COMPARISON: No prior exams available for comparison. No external comparison. DOSE: 8.7 mCi Tc 99m Myoview at rest 25.4 mCi [id number] at stress 0.4 mg Lexiscan STRESS SYMPTOMS: Dyspnea, headache, stomach pressure and heart racing. EJECTION FRACTION: 65 % TECHNIQUE: The patient underwent pharmacologic stress with infusion of prescribed dose. Continuous ECG tracing was monitored during stress. Gated SPECT imaging was performed after stress and conventi onal SPECT imaging was performed at rest. The examination was performed on a SPECT/CT scanner, both attenuation and non-corrected datasets were reviewed. FINDINGS: Distribution: The maximum perfused segment at stress is in the inferior wall. Perfusion Study: There is mild decrease activity seen on the stress images at the apical to mid mid anterior wall and the mid to basal portion of the lateral wall. These are concerning for mild ischem ia. Gated Study: There are intact wall motion and wall thickening without hypokinetic or dyskinetic segm ents. The ejection fraction is calculated at 65%. RISK CATEGORY: Low (<1% Annual Motality Rate) CONCLUSION: Possible mild ischemia in the anterior and lateral villareal. Electronically signed by: Jayy Jasmine MD 04/26/2018 10:44 AM EST
[2018-04-26] MEDS: Sod Chloride 0.9% Inj 1,000 ML IV.CONT SCH ×2 (12:42→23:57)
[2018-04-26] MEDS ORDERED: Morphine Sulfate Inj 2 MG/ML Vial IV.PUSH PRN (15:15)
[2018-04-26] MEDS ORDERED: Vancomycin Consult Pharmacy OTHER PRN (15:18)
--- NOTE | 2018-04-26 15:23 | P.PNCA ---
Subjective Interval history: Denies chest discomfort. Planing of pain to her right foot. Medications and Allergies Active Medications: Active Medications Albuterol (Duoneb Neb (Prn)) 1 ampul NEB Q4HR NEB PRN PRN Reason: SHORTNESS OF BREATH/WHEEZING Last Admin: 04/25/18 13:52 Dose: 1 ampul Alprazolam (Xanax) 0.25 mg PO Q6H PRN PRN Reason: ANXIETY Last Admin: 04/26/18 08:29 Dose: 0.25 mg Aspirin (Aspirin) 325 mg PO DAILY [facility] Last Admin: 04/26/18 08:30 Dose: 325 mg Clonidine HCl (Catapres) 0.1 mg PO Q6H PRN PRN Reason: SBP >165 OR DBP > 110 Hydromorphone HCl (Dilaudid Pf Inj) 1 mg IV.PUSH Q4H PRN PRN Reason: PAIN SCALE 7 TO 10 SEVERE Sodium Chloride (Ns Inj) 1,000 mls @ 100 mls/hr IV.CONT .Q10H [facility] Last Admin: 04/26/18 12:42 Dose: 100 mls/hr Morphine Sulfate (Morphine Inj) 2 mg IV.PUSH Q4H PRN PRN Reason: PAIN SCALE 6 TO 10 Ondansetron HCl (Zofran Inj) 4 mg IV.PUSH Q6H PRN PRN Reason: NAUSEA Oxycodone/Acetaminophen (Percocet 7.5/325 Mg) 1 tab PO Q4H PRN PRN Reason: PAIN SCALE 7 TO 10 SEVERE Pharmacy Profile Note (Vancomycin Consult Pharmacy) 1 each OTHER UNSCH PRN PRN Reason: Pharmacy to dose Sodium Chloride (Ns Flush) 2 ml IV.FLUSH BID [facility] Last Admin: 04/26/18 10:24 Dose: Not Given Sodium Chloride (Ns Flush) 2 ml IV.FLUSH PRN PRN PRN Reason: FLUSH AFTER USING IV ACCESS Allergies Allergy/AdvReac Type Severity Reaction Status Date / Time codeine AdvReac Severe itching Verified 04/25/18 08:09 Home Medications Medication Instructions Recorded Confirmed Type No Known Home Medications 04/25/18 04/25/18 History Physical Exam Vital signs: Vital Signs 04/25/18 19:39 04/25/18 20:00 04/25/18 20:40 Temperature 98.5 F Pulse Rate 85 85 Respiratory Rate 16 18 Blood Pressure 125/60 Pulse Oximetry 97 04/26/18 00:00 04/26/18 04:00 04/26/18 07:54 Temperature 97.6 F 98.6 F Pulse Rate 75 69 75 Respiratory Rate 18 19 16 Blood Pressure 131/72 133/72 148/83 H Pulse Oximetry 98 96 97 04/26/18 08:00 04/26/18 09:00 04/26/18 12:00 Temperature 97.7 F Pulse Rate 73 73 78 Respiratory Rate 16 Blood Pressure 157/70 H Pulse Oximetry 99 Intake & Output 04/25/18 04/26/18 04/26/18 18:59 06:59 18:59 Output Total 200 / 200 Balance -200 / -200 Weight 77.111 kg Output: Urine 200 / 200 Other: # Urine Diapers 0 Date of Last Bowel Movement 04/24/18 Weight On Admission 78.789 kg Narrative: General: No apparent distress. Cardiac: Regular rate and rhythm without murmur gallop or rub. Respiratory: Lungs clear to auscultate bilaterally. Musculoskeletal: Lesion still present along the medial aspect of right foot. No active drainage at this time however she states it was draining earlier this morning. Results 04/25/18 09:47 04/25/18 09:47 Cardiac Enzymes 04/25/18 04/25/18 04/25/18 Range/Units 09:47 13:00 17:20 AST 43 H (15-37) U/L Troponin I Less than 0.02 L Less than 0.02 L Less than 0.02 L (0.02-0.05) ng/mL CBC 04/25/18 Range/Units 09:47 WBC 2.6 L (4.0-11.0) th/mm3 RBC 4.01 (4.00-5.30) mil/mm3 Hgb 11.6 (11.6-15.3) gm/dL Hct 34.4 L (35.0-46.0) % Plt Count 123 L (150-450) th/mm3 Neut # (Auto) 1.6 L (1.8-7.7) th/mm3 Lymph # (Auto) 0.8 L (1.0-4.8) th/mm3 Summers # (Auto) 0.1 (0.0-0.9) th/mm3 Eos # (Auto) 0.0 (0.0-0.4) th/mm3 Baso # (Auto) 0.0 (0.0-0.2) th/mm3 Comprehensive Metabolic Panel 04/25/18 Range/Units 09:47 Sodium 137 (136-145) meq/L Potassium 3.8 (3.5-5.1) meq/L Chloride 108 H (98-107) meq/L Carbon Dioxide 21.9 (21.0-32.0) meq/L BUN 11 (7-18) mg/dL Creatinine 0.74 (0.50-1.00) mg/dL Calcium 8.7 (8.5-10.1) mg/dL AST 43 H (15-37) U/L ALT 38 (10-53) U/L Alkaline Phosphatase 183 H (45-117) U/L Total Protein 8.2 (6.4-8.2) g/dL Albumin 3.4 (3.4-5.0) g/dL Intake and Output 04/26/18 04/26/18 04/26/18 06:59 14:59 22:59 Other: # Urine Diapers 0 Date of Last Bowel Movement 04/24/18 - Imaging and Cardiology Imaging: Impressions Foot X-Ray 04/25/18 00:00 CONCLUSION: No definite radiopaque foreign body. Nonspecific soft tissue swelling along the plantar surface of the foot. Chest X-Ray 04/25/18 09:25 CONCLUSION: No acute cardiopulmonary abnormality is identified. Myocardial Perfusion Scan Nuc Med 04/26/18 07:16 CONCLUSION: Possible mild ischemia in the anterior and lateral villareal. Assessment and Plan - Assessment (1) Chest pain Code(s): R07.9 - Chest pain, unspecified Status: Acute (2) Hypertension Code(s): I10 - Essential (primary) hypertension Status: Acute (3) Bronchitis Code(s): J40 - Bronchitis, not specified as acute or chronic Status: Acute (4) Tobacco abuse Code(s): Z72.0 - Tobacco use Status: Acute - Plan * Chest pain: Patient symptoms seem atypical, she has had discomfort for about 12 hours and initial troponin is normal.. Patient will continue to have serial cardiac enzymes and EKGs for ruling out purposes. She will be evaluated by Dr. Carlton Mitchell of cardiology and the chest pain center and at that time further plan will be decided. She will need to follow-up with PCP after being discharged. She should return to ED for interval issues. * History of hypertension: Patient states she is taken on medication for losing weight 2 years ago states that her blood pressures have been doing fine since. She was hypertensive upon arrival in the ED. We will continue to monitor. Add as needed Catapres. She wanted to discuss this with her physician. * URI: Patient's cough has been nonproductive so far. States she had a fever this morning. She was wheezing upon examination, will have DuoNeb. Patient will need to quit smoking. She will need to follow-up with PCP. * Tobacco abuse: Patient counseled on importance of smoking cessation. Patient is stable at this time. She is agreeable to this plan. The Lexiscan was read by radiologist as possible mild ischemia in the anterior and lateral villareal. EF was 65%. Risk category was low. Discussed with Dr. Navarro. No further intervention. Medical management will be utilized. Patient's right foot was evaluated by stone banker Dr. Rm. He plans to take her to the OR tomorrow morning for further treatment of the right foot lesion. He is wearing analgesia and is starting IV antibiotics. Patient will be admitted to [facility] for further medical management.
[2018-04-26] MEDS: HYDROmorphone PF Inj 2 MG/ML Vial IV.PUSH PRN ×3 (15:26→23:56)
--- NOTE | 2018-04-26 16:14 | MB ---
cc: Marco Rm DPM DATE: 04/26/2018 REASON FOR CONSULTATION: Right foot infection and lesion, questionable neoplasm. HISTORY OF PRESENT ILLNESS: A 47-year-old female who came in with a complaint of right foot; however, she coughed and had severe epigastric discomfort and chest pressure. Apparently, she has been worked up today for chest pain. I have been requested to see the patient regarding the foot. She is seen at bedside. She is having significant pain that has worsened. She had antibiotics for 7 days. She cannot recall the name, but she has had no improvement. 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 She is also a smoker. She works construction. She says that there has been drainage that has been coming out of it with no relief. ALLERGIES TO CODEINE. However, the patient has had Percocet and Dilaudid with no severe allergic response. PAST MEDICAL HISTORY: Alcoholic, cirrhosis, hypertension, history of hysterectomy. PAST SURGICAL HISTORY: History of appendectomy, cholecystectomy. ALLERGIES: CODEINE, CAUSES ITCHING. ACTIVE MEDICATIONS: It appears she is receiving p.r.n. medication. No antibiotics at this point. PHYSICAL EXAMINATION: VITAL SIGNS: Temperature 97.7, pulse rate 78, respiratory rate 16, blood pressure 157/70. GENERAL: This is an alert and oriented female, exhibiting nonlabored respirations. No acute distress, even though she is quite emotional. EXTREMITIES: Right lower extremity is examined. There was noted to be a raised, very tender, painful lesion approximately 2 cm x 2 cm. It raised, black and discolored with a purulent rim with redness focal to the lesion. It is in the mid plantar medial arch. It is very tender to palpation. There is no pain with range of motion of digits, forefoot. There is hindfoot tenderness and pain. Pedal pulses are palpable. Sensation appears to be intact. LABORATORY FINDINGS: White blood cell 2.6, hemoglobin and hematocrit 11, 34. Platelet count 123. Sodium 137, potassium 3.8, chloride 108, CO2 21.9, BUN is 11, random glucose is 196, AST is 43, ALT is 38, alkaline phosphatase is 183. X-RAYS: Foot x-ray: No definite radiopaque foreign body. Nonspecific soft tissue swelling along the plantar surface of the foot. Bony structures within normal limits. MRI ordered. Patient has a cardiac studies. Cardiology has seen and evaluated. ASSESSMENT AND PLAN: Right foot abscess, questionable lesion, possible neoplasm with secondary infection MRSA. RECOMMENDATION: Start antibiotics, Zosyn and vancomycin was ordered. INR was also ordered. The patient is ordered n. p.o. after midnight with plans for surgical excision of the area with possible wound VAC application. I also changed the patient's pain schedule. Plan is for surgery in the a.m. Thank you for this consultation. HOMERO Pedroza/oscar/yanet , 03:28 PM , 03:38 PM
[2018-04-26] MEDS: Piperacil/Tazo 3.375 GM Premix 50 ML IV.SIG SCH ×2 (16:23→23:57)
[2018-04-26 16:55] LABS: INR 1.1 Ratio; Prothrombin Time 10.9 sec (9.8-11.6)
--- NOTE | 2018-04-26 17:06 | TR ---
Date Performed: 04/26/2018 Time Performed: 09:16:17 DOCTOR: Mireya Navarro DRUG LIST: CLINICAL HISTORY: REASON FOR TEST: REASON FOR ENDING: OBSERVATION: CONCLUSION: Lexiscan stress test was performed under standard four minute protocol. Radionuclid e was injected one minute prior to ending the test. No electrocardiographic abormalities were present to suggest ischemia. Nuclear imaging and interpretation are pending. COMMENTS: Lexiscan stress test was performed under standard four minute protocol. Radionuclide was injected one minute prior to ending the test. No electrocardiographic abormalities were present t o suggest ischemia. Nuclear imaging and interpretation are pending.
[2018-04-26] MEDS: Vancomycin Inj 1,250 MG in Sodium Chlor 0.9% Inj 250 ML IV.SIG SCH (18:40)
[2018-04-27] MEDS: HYDROmorphone PF Inj 2 MG/ML Vial IV.PUSH PRN ×5 (04:35→22:19)
[2018-04-27] MEDS: Vancomycin Inj 1,250 MG in Sodium Chlor 0.9% Inj 250 ML IV.SIG SCH ×2 (04:35→16:38)
[2018-04-27 05:25] LABS: Glomerular Filtration Rate Greater Than 89 mL/min (>89)
--- NOTE | 2018-04-27 06:11 | CT ---
EXAM DATE: 04/27/2018 5:40 AM EST AGE/SEX: 47 years / Female INDICATIONS: Foot pain, evaluate for abscess on bottom of right foot. CLINICAL DATA: This is the patient's initial encounter. Patient reports that signs and symptoms have been present for 2 days and indicates a pain score of 8/10. MEDICAL/SURGICAL HISTORY: Hypertension. Hysterectomy. RADIATION DOSE: 3.45 CTDI (mGy) COMPARISON: No prior exams available for comparison. TECHNIQUE: Multiple contiguous axial images were acquired using a multirow detector CT scanner after the intravenous administration of 80 ml Omnipaque 350 (iohexol) nonionic water-soluble contrast as a single exam dose. Multiplanar reconstruction was performed in the sagittal and coronal planes. Us ing automated exposure control and adjustment of the mA and/or kV according to patient size, radiatio n dose was kept as low as reasonably achievable to obtain optimal diagnostic quality images. DICOM f ormat image data is available electronically for review and comparison. FINDINGS: Bones: The bony structures about the forefoot are in normal alignment. The metatarsi, phalanges, an d distal tarsal row osseous structures are intact. No fracture is seen. Joints: No significant arthropathy or bony hypertrophy is seen. Soft Tissues: There is mild thickening of the scan and stranding of the immediate adjacent subcutane ous fat involving the plantar aspects of the foot more pronounced medially. No fluid collection or ab scess.. Other: No foreign bodies seen. Post Contrast: No abnormal areas of enhancement are seen in the marrow or soft tissues. CONCLUSION: 1. No abscess. Inflammatory changes involving the skin and immediate subcutaneous fat of the plantar soft tissues approaching the heel. Electronically signed by: Franklin Walls MD 04/27/2018 6:10 AM EST
[2018-04-27] MEDS ORDERED: Bupivacaine PF 0.25% Inj 30 ML Vial ONE (06:29)
[2018-04-27] MEDS ORDERED: fentaNYL Citrate Inj 100 MCG/2 ML Ampul ONE ×2 (07:35)
[2018-04-27] MEDS: Piperacil/Tazo 3.375 GM Premix 50 ML IV.SIG SCH ×2 (08:05→15:02)
--- NOTE | 2018-04-27 08:42 | P.BOP ---
- Preoperative Diagnosis (1) Mass of skin of right foot - Postoperative Diagnosis (1) Mass of skin of right foot Date of procedure: 04/27/18 Procedure: Right foot excision soft tissue mass Anesthesia: GETA, local Surgeon: Marco Millan DPM Estimated blood loss (mL): 5 (mL) Tourniquet time (min): 7 (min 250mmhg) Pathology: none sent (right foot mass for path and deep wound cx) Condition: stable Disposition: observation (Patient will likley need skin graft once path result)
[2018-04-27] MEDS: Aspirin 325 MG Tablet PO SCH (09:26)
--- NOTE | 2018-04-27 09:47 | MP ---
cc: Marco Rm DPM DATE OF OPERATION: PREOPERATIVE DIAGNOSIS: Infected painful soft tissue mass, right foot. POSTOPERATIVE DIAGNOSIS: Infected painful soft tissue mass, right foot. PROCEDURE PERFORMED: Right foot wide excision soft tissue mass measuring approximately 2 cm x 2 cm with 1.5 cm depth. ANESTHESIA: General. COMPLICATIONS: None. INJECTABLES: 16 mL of 0.25% Marcaine plain. PATHOLOGY: Right foot soft tissue mass and deep culture for microbial analysis. ESTIMATED BLOOD LOSS: Less than 5 mL TOURNIQUET TIME: 7 minutes at the setting 250 mmHg. DISPOSITION: Returned to observation unit. We are awaiting pathology results to determine if margins are involved and if the lesion is benign or of a neoplastic nature. The patient will likely need a skin graft placed in the next 1-2 days. JUSTIFICATION FOR PROCEDURE: A pleasant 47-year-old female who originally presented with right foot pain; however, she had atypical chest pain and she was worked up by cardiology. It appears that she is a moderate to low risk at this point and to follow outpatient for cardiology. The right foot CT showed no deep enhancement of the soft tissue. It appeared to only be in the superficial or dermal type layer. I reviewed with the patient the need for wide excision due to the thin nature of the wound and the history of MRSA. IV antibiotics as indicated for the next 1 to 2 days once microbial analysis clears. The patient understood. This is likely a staged procedure. No guarantees given or implied regarding the outcome. PROCEDURE IN DETAIL: Under mild sedation, the patient was brought in the operating room, placed on the operating table in supine position. Following the induction of general anesthesia, local anesthesia was obtained about the right hindfoot utilizing standard block fashion. The right foot was then scrubbed, prepped and draped in the usual aseptic fashion. The foot was elevated and exsanguinated and the previously placed mid-calf tourniquet was inflated at 250 mmHg. Measurements of the wound took place measuring 18 mm, 20 mm with approximately 1.5 or raised depth. It appeared to have irregular well enucleated center. Skin lines did not pass through the lesion. It appeared to be along the lines of an infected wart type lesion; [address] beyond the mass border to attempt a wide excision. Full-thickness incision took place down to fat and adipose beyond fascia and the lesion was excised in toto. Bovie and ligation took place of venous structures that were encountered. A pneumatic tourniquet dropped and no pulsatile bleeding noted. Deep culture taken. The dorsal aspect noon orientation of the mass was tagged with a long silk sutures and the plantar aspect of the mass was tagged with short tail and sutures at 6 o'clock. Adaptic was placed at the bed of the wound after copious amounts of normal saline. A wound VAC was applied under adequate seal and suction. The patient was then extubated uneventfully, transferred from OR to PACU with all vital signs stable. We will monitor pathology, likely skin graft application in the next 24-48 hours pending pathology and the patient's response to IV antibiotics. I will sign out the patient to Dr. Garcia, who will be assuming care starting on 04/28/2018. HOMERO Pedroza/corina , 08:47 AM , 08:55 AM
[2018-04-27] MEDS: Sod Chloride 0.9% Inj 1,000 ML IV.CONT SCH ×2 (10:44→18:37)
--- NOTE | 2018-04-27 14:50 | P.PN ---
Subjective Interval history: Nursing reports that the patient is complaining of a strong nicotine addiction, requesting nicotine supplementation. Patient herself denies any fevers or chills today, she does report a fever of up to 104 just prior to coming into the hospital. Reports that her right foot lesion had purulent drainage coming out of it for a few days before presenting to the hospital. Says that she also had some global edema in the foot beyond just the scope of the lesion. Reports having nausea and vomiting with this. Reports that the only chest pain she had was coughing induced. Now that she is postop and on antibiotics she feels much better with no fever or chills no nausea nor vomiting. Wound VAC is in place. Physical Exam Vital signs: Vital Signs 04/26/18 15:57 04/26/18 19:49 04/26/18 20:00 Temperature 98.7 F 98.0 F Pulse Rate 95 H 82 80 Respiratory Rate 16 17 Blood Pressure 197/84 H 136/89 Pulse Oximetry 99 99 98 04/26/18 23:39 04/27/18 00:26 04/27/18 03:55 Temperature 98.5 F 98.2 F Pulse Rate 81 85 Respiratory Rate 14 16 17 Blood Pressure 148/70 H 148/72 H Pulse Oximetry 97 98 04/27/18 07:02 04/27/18 07:08 04/27/18 08:34 Temperature 98.0 F 97.9 F Pulse Rate 79 90 Respiratory Rate 16 15 Blood Pressure 168/78 H 134/62 Pulse Oximetry 168 H 93 L 04/27/18 08:45 04/27/18 09:05 04/27/18 11:56 Temperature 98.0 F Pulse Rate 77 90 Respiratory Rate 18 17 18 Blood Pressure 138/63 138/77 Pulse Oximetry 95 99 04/27/18 12:00 Temperature 98.1 F Pulse Rate 82 Respiratory Rate 16 Blood Pressure 185/84 H Pulse Oximetry 98 Intake & Output 04/26/18 04/27/18 04/27/18 18:59 06:59 18:59 Intake Total 0 / 0 1625.0 / 1625.0 1050 / 1050 Output Total 5 / 5 Balance 0 / 0 1625.0 / 1625.0 1045 / 1045 Intake: IV 0 / 0 1625.0 / 1625.0 1050 / 1050 NS Inj 1,000 ML @ 100 mls/hr IV 1000 / 1000 1000 / 1000 .CONT .Q10H [facility] Rx#:[id number] Zosyn 3.375 GM Premix 50 ML @ 0 / 0 100 / 100 50 / 50 100 mls/hr IV.SIG Q8H [facility] Rx#: [id number] Vancomycin Inj 1,250 MG In NS 525.0 / 525.0 Inj 250 ML @ 250 mls/hr IV.SIG Q12H [facility] Rx#:[id number] Output: Estimated Blood Loss 5 / 5 Other: Mode Setting Right Foot Intermittent # Voids 2 Date of Last Bowel Movement 04/24/18 Narrative: Right foot appears normal in size and normal in color, has a wound VAC in place over the wound chest inferolateral to medial malleoli region No lower extremity edema Clear lungs bilaterally, unlabored breathing Heart sounds regular rate and rhythm, 5/6 ejection murmur Results - Labs CBC & Chem 7: 04/25/18 09:47 04/27/18 04:39 Laboratory Results - last 24 hr 04/26/18 04/26/18 04/27/18 16:05 16:05 04:39 PT 10.9 INR 1.1 Creatinine 0.61 Estimated GFR Greater than 89 Beta HCG, Qual Less than 1.0 - Imaging Impressions Foot CT 04/27/18 00:00 CONCLUSION: 1. No abscess. Inflammatory changes involving the skin and immediate subcutaneous fat of the plantar soft tissues approaching the heel. Assessment and Plan - Plan 47-year-old white female who was admitted initially to the chest pain center, deemed needed only medical management by cardiology. Found to have a infectious wart like lesion on her right hindfoot/midfoot. Is now status post excision and debridement, specimen pending on path. Will start on antibiotics by podiatry. Cellulitis/abscess/infected scab Continue antibiotics, wound VAC in place, Right foot wide excision soft tissue mass measuring approximately 2 cm x 2 cm with 1.5 cm depth on 04/28/18 -Follow-up pathology and microbiology Hypertension Continue amlodipine Vistaril as needed anxiety lovenox
[2018-04-27] MEDS: amLODIPine 5 MG Tablet PO SCH (16:37)
[2018-04-28] MEDS: Piperacil/Tazo 3.375 GM Premix 50 ML IV.SIG SCH ×4 (00:50→23:00)
[2018-04-28] MEDS: HYDROmorphone PF Inj 2 MG/ML Vial IV.PUSH PRN ×2 (02:31→06:36)
[2018-04-28] MEDS ORDERED: Pharmacy Ordered Lab Info OTHER ONE (04:45)
[2018-04-28] MEDS: Sod Chloride 0.9% Inj 1,000 ML IV.CONT SCH ×2 (05:00→13:15)
[2018-04-28] MEDS: Vancomycin Inj 1,250 MG in Sodium Chlor 0.9% Inj 250 ML IV.SIG SCH (06:10)
[2018-04-28] MEDS: Aspirin 325 MG Tablet PO SCH (08:59)
[2018-04-28] MEDS: amLODIPine 5 MG Tablet PO SCH (08:59)
[2018-04-28] MEDS: ALPRAZolam 0.25 MG Tablet PO PRN (09:47)
[2018-04-28] MEDS ORDERED: HYDROmorphone PF Inj 2 MG/ML Vial IV.PUSH ONE (13:15)
--- NOTE | 2018-04-28 14:31 | P.PN ---
Subjective Interval history: RN denies any deterioration except for the patient complaining of wanting IV narcotic pain medication. I discussed with Dr. Garcia today who is covering for Dr. Rm, anticipates a part to surgery tomorrow pending up on pathology results. There is a concern for possible squamous cell cancer but the path results will ultimately give the definitive diagnosis. Patient denies any foot swelling today. Says that the green pill worked for her anxiety yesterday. Says that she does not want Xanax, concerned that her relative got hooked on controlled substances. She denies having any adverse effects from Percocet. Is willing to try to alternate between Percocet and morphine. Physical Exam Vital signs: Vital Signs 04/27/18 16:00 04/27/18 20:00 04/28/18 04:00 Temperature 97.7 F 97.6 F 98.0 F Pulse Rate 94 H 83 80 Respiratory Rate 18 16 16 Blood Pressure 178/79 H 156/69 H 151/65 H Pulse Oximetry 93 L 97 96 04/28/18 08:00 04/28/18 12:23 Temperature 97.8 F 98.1 F Pulse Rate 78 72 Respiratory Rate 18 22 Blood Pressure 148/76 H 186/77 H Pulse Oximetry 98 99 Intake & Output 04/27/18 04/28/18 04/28/18 18:59 06:59 18:59 Intake Total 2862.5 / 2862.5 1050 / 1050 1312.5 / 1312.5 Output Total 5 / 5 Balance 2857.5 / 2857.5 1050 / 1050 1312.5 / 1312.5 Intake: IV 2362.5 / 2362.5 1050 / 1050 1312.5 / 1312.5 NS Inj 1,000 ML @ 100 mls/hr IV 2000 / 2000 1000 / 1000 1000 / 1000 .CONT .Q10H [facility] Rx#:[id number] Zosyn 3.375 GM Premix 50 ML @ 100 / 100 50 / 50 50 / 50 100 mls/hr IV.SIG Q8H [facility] Rx#: [id number] Vancomycin Inj 1,250 MG In NS 262.5 / 262.5 262.5 / 262.5 Inj 250 ML @ 250 mls/hr IV.SIG Q12H [facility] Rx#:[id number] Oral 500 / 500 Output: Estimated Blood Loss 5 / 5 Other: Mode Setting Right Foot Intermittent Continuous Continuous Narrative: Clear lungs bilaterally, unlabored breathing Heart sounds regular rate and rhythm, no murmurs No lower extremity edema bilaterally Wound VAC in place over medial aspect of left foot/ankle No lower extremity edema or erythema of left foot, good color, intact sensation to light finger touch over left foot globally Results - Labs CBC & Chem 7: 04/28/18 15:13 04/27/18 04:39 Laboratory Results - last 24 hr 04/28/18 05:43 Vancomycin Trough 8.2 Microbiology 04/27/18 08:15 Wound - Foot Gram Stain - Final 04/27/18 08:15 Wound - Foot Wound Culture - Preliminary Staphylococcus aureus 04/27/18 08:15 Wound - Foot Fungal Smear - Final No fungal elements seen 04/27/18 08:15 Wound - Foot Acid Fast Bacilli Smear - Final No acid fast bacilli seen Assessment and Plan - Plan 47-year-old white female who was admitted initially to the chest pain center, deemed needed only medical management by cardiology. Found to have a infectious wart like lesion on her right hindfoot/midfoot. Is now status post excision and debridement, specimen pending on path. Will start on antibiotics by podiatry. Cellulitis/abscess/infected scab Continue antibiotics, wound VAC in place, Right foot wide excision soft tissue mass measuring approximately 2 cm x 2 cm with 1.5 cm depth on 04/28/18 -Follow-up pathology and microbiology -We will obtain blood cultures and repeat CBC given that the patient is postop to make sure she did not drop in count - pain control (IV pain medication alteration w/ percocet) Hypertension Continue amlodipine Vistaril as needed anxiety lovenox
[2018-04-28 15:31] LABS: Baso % (Auto) 0.3 % (0.0-2.0); Eos % (Auto) 0.6 % (0.0-4.0); Hematocrit 27.8 % (35.0-46.0); Hemoglobin 9.5 gm/dL (11.6-15.3); Lymph # (Auto) 1.3 th/mm3 (1.0-4.8); Lymph % (Auto) 29.5 % (9.0-44.0); Mean Corpuscular HGB Conc 34.2 % (32.0-36.0); Mean Corpuscular Hemoglobin 29.1 pg (27.0-34.0); Mean Corpuscular Volume 85.2 fL (80.0-100.0); Mean Platelet Volume 7.3 fL (7.0-11.0); Mono # (Auto) 0.3 th/mm3 (0.0-0.9); Mono % (Auto) 6.1 % (0.0-8.0); Neut # (Auto) 2.7 th/mm3 (1.8-7.7); Neut % (Auto) 63.5 % (16.0-70.0); Platelet Count 114 th/mm3 (150-450); Red Blood Count 3.27 mil/mm3 (4.00-5.30); Red Cell Distribution Width 15.9 % (11.6-17.2); White Blood Count 4.3 th/mm3 (4.0-11.0)
[2018-04-28 15:48] LABS: Calcium 8.2 mg/dL (8.5-10.1); Carbon Dioxide 25.8 meq/L (21.0-32.0); Potassium 3.8 meq/L (3.5-5.1)
[2018-04-28] MEDS: Morphine Inj 4 MG/ML Vial IV.PUSH PRN ×2 (16:06→20:37)
[2018-04-28] MEDS: Vancomycin Inj 1,500 MG in Sodium Chlor 0.9% Inj 500 ML IV.SIG SCH (16:06)
--- NOTE | 2018-04-28 20:42 | P.PNPOD ---
Physical Exam Vital signs: Vital Signs 04/28/18 04:00 04/28/18 08:00 04/28/18 12:23 Temperature 98.0 F 97.8 F 98.1 F Pulse Rate 80 78 72 Respiratory Rate 16 18 22 Blood Pressure 151/65 H 148/76 H 186/77 H Pulse Oximetry 96 98 99 04/28/18 16:11 04/28/18 19:21 Temperature 98.0 F 97.9 F Pulse Rate 77 75 Respiratory Rate 18 16 Blood Pressure 159/80 H 153/74 H Pulse Oximetry 99 97 Intake & Output 04/28/18 04/28/18 04/29/18 06:59 18:59 06:59 Intake Total 1050 / 1050 1877.5 / 1877.5 Balance 1050 / 1050 1877.5 / 1877.5 Intake: IV 1050 / 1050 1877.5 / 1877.5 NS Inj 1,000 ML @ 100 mls/hr IV 1000 / 1000 1000 / 1000 .CONT .Q10H [facility] Rx#:[id number] Zosyn 3.375 GM Premix 50 ML @ 50 / 50 100 / 100 100 mls/hr IV.SIG Q8H [facility] Rx#: [id number] Vancomycin Inj 1,250 MG In NS 262.5 / 262.5 Inj 250 ML @ 250 mls/hr IV.SIG Q12H [facility] Rx#:[id number] Vancomycin Inj 1,500 MG In NS 515 / 515 Inj 500 ML @ 250 mls/hr IV.SIG Q12H [facility] Rx#:[id number] Other: Mode Setting Right Foot Continuous Continuous Medications and Allergies Active Medications: Active Medications Albuterol (Duoneb Neb (Prn)) 1 ampul NEB Q4HR NEB PRN PRN Reason: SHORTNESS OF BREATH/WHEEZING Last Admin: 04/25/18 13:52 Dose: 1 ampul Amlodipine Besylate (Norvasc) 2.5 mg PO DAILY [facility] Last Admin: 04/28/18 08:59 Dose: 2.5 mg Aspirin (Aspirin) 325 mg PO DAILY [facility] Last Admin: 04/28/18 08:59 Dose: 325 mg Clonidine HCl (Catapres) 0.1 mg PO Q6H PRN PRN Reason: SBP >165 OR DBP > 110 Last Admin: 04/28/18 12:29 Dose: 0.1 mg Hydroxyzine HCl (Atarax) 50 mg PO Q8H PRN PRN Reason: ANXIETY Sodium Chloride (Ns Inj) 1,000 mls @ 100 mls/hr IV.CONT .Q10H [facility] Last Admin: 04/28/18 13:15 Dose: 100 mls/hr Piperacillin/Tazobactam/Dextrose (Zosyn 3.375 Gm Premix) 50 mls @ 100 mls/hr IV.SIG Q8H [facility] Last Infusion: 04/28/18 17:50 Dose: Infused Vancomycin HCl 1,500 mg/ (Sodium Chloride) 515 mls @ 250 mls/hr IV.SIG Q12H [facility] Last Infusion: 04/28/18 18:41 Dose: Infused Miscellaneous Information ([facility] Ordered Lab Info) 0 each OTHER ONCE ONE Stop: 04/30/18 04:46 Morphine Sulfate (Morphine Inj) 4 mg IV.PUSH Q4H PRN PRN Reason: BREAKTHROUGH PAIN Last Admin: 04/28/18 16:06 Dose: 4 mg Ondansetron HCl (Zofran Inj) 4 mg IV.PUSH Q6H PRN PRN Reason: NAUSEA Oxycodone/Acetaminophen (Percocet 7.5/325 Mg) 1 tab PO Q4H PRN PRN Reason: pain Last Admin: 04/28/18 17:21 Dose: 1 tab Pharmacy Profile Note (Vancomycin Consult Pharmacy) 1 each OTHER UNSCH PRN PRN Reason: Pharmacy to dose Sodium Chloride (Ns Flush) 2 ml IV.FLUSH BID [facility] Last Admin: 04/28/18 09:01 Dose: 2 ml Sodium Chloride (Ns Flush) 2 ml IV.FLUSH PRN PRN PRN Reason: FLUSH AFTER USING IV ACCESS Allergies Allergy/AdvReac Type Severity Reaction Status Date / Time codeine AdvReac Severe itching Verified 04/25/18 08:09 Home Medications Medication Instructions Recorded Confirmed Type No Known Home Medications 04/25/18 04/25/18 History Results - Labs CBC & Chem 7: 04/28/18 15:13 04/28/18 15:13 Laboratory Results - last 24 hr 04/28/18 04/28/18 04/28/18 05:43 15:13 15:13 WBC 4.3 RBC 3.27 L Hgb 9.5 L Hct 27.8 L MCV 85.2 MCH 29.1 MCHC 34.2 RDW 15.9 Plt Count 114 L MPV 7.3 Neut % (Auto) 63.5 Lymph % (Auto) 29.5 Bay % (Auto) 6.1 Eos % (Auto) 0.6 Baso % (Auto) 0.3 Neut # (Auto) 2.7 Lymph # (Auto) 1.3 [place] # (Auto) 0.3 Eos # (Auto) 0.0 Baso # (Auto) 0.0 WBC Differential . Differential Comment Auto diff final Sodium 142 Potassium 3.8 Chloride 111 H Carbon Dioxide 25.8 Anion Gap 5 BUN 18 Creatinine 0.83 Estimated GFR 74 L Random Glucose 146 H Calcium 8.2 L Vancomycin Trough 8.2 Microbiology 04/27/18 08:15 Wound - Foot Gram Stain - Final 04/27/18 08:15 Wound - Foot Wound Culture - Preliminary Staphylococcus aureus 04/27/18 08:15 Wound - Foot Fungal Smear - Final No fungal elements seen 04/27/18 08:15 Wound - Foot Acid Fast Bacilli Smear - Final No acid fast bacilli seen Assessment and Plan - Assessment (1) Mass of skin of right foot Code(s): R22.41 - Localized swelling, mass and lump, right lower limb Status: Acute - Plan s/p excision of lesion with Dr Rm 04/27/18 Continue wound vac Continue nonweightbearing Must await pathology results to guide further treatment, wide excision and plastics consult vs podiatric surgery. Will hopefully have results and treatment plan recommendations by tomorrow. Patient tentatively on schedule for surgery with podiatry tomorrow pm NPO after breakfast tomorrow
[2018-04-29] MEDS: Morphine Inj 4 MG/ML Vial IV.PUSH PRN ×5 (01:48→18:14)
[2018-04-29] MEDS: Vancomycin Inj 1,500 MG in Sodium Chlor 0.9% Inj 500 ML IV.SIG SCH (04:52)
[2018-04-29] MEDS: Sod Chloride 0.9% Inj 1,000 ML IV.CONT SCH ×3 (04:53→18:42)
[2018-04-29] MEDS: Piperacil/Tazo 3.375 GM Premix 50 ML IV.SIG SCH (07:50)
[2018-04-29 08:05] LABS: Glomerular Filtration Rate Greater Than 89 mL/min (>89)
[2018-04-29] MEDS: amLODIPine 5 MG Tablet PO SCH (09:19)
[2018-04-29] MEDS: Aspirin 325 MG Tablet PO SCH (09:23)
--- NOTE | 2018-04-29 12:44 | P.PN ---
Subjective Interval history: Nursing denies any acute changes overnight, patient is requesting pain medication. Patient herself says that her pain in her foot is throbbing in nature, at least 5/10 intensity, positioning does not help alleviate or exacerbate, morphine does partially help. Pain level overall is unchanged since postop day 0. No fevers overnight. Physical Exam Vital signs: Vital Signs 04/28/18 16:11 04/28/18 19:21 04/28/18 23:09 Temperature 98.0 F 97.9 F 97.9 F Pulse Rate 77 75 66 Respiratory Rate 18 16 16 Blood Pressure 159/80 H 153/74 H 151/70 H Pulse Oximetry 99 97 97 04/29/18 04:00 04/29/18 07:54 04/29/18 12:00 Temperature 98.0 F 97.8 F 97.6 F Pulse Rate 55 L 67 64 Respiratory Rate 16 16 16 Blood Pressure 141/70 H 140/81 168/81 H Pulse Oximetry 96 98 96 Intake & Output 04/28/18 04/29/18 04/29/18 18:59 06:59 18:59 Intake Total 1877.5 / 1877.5 700 / 700 1565 / 1565 Balance 1877.5 / 1877.5 700 / 700 1565 / 1565 Intake: IV 1877.5 / 1877.5 700 / 700 1565 / 1565 NS Inj 1,000 ML @ 100 mls/hr IV 1000 / 1000 650 / 650 1000 / 1000 .CONT .Q10H [facility] Rx#:[id number] Zosyn 3.375 GM Premix 50 ML @ 100 / 100 50 / 50 50 / 50 100 mls/hr IV.SIG Q8H [facility] Rx#: [id number] Vancomycin Inj 1,250 MG In NS 262.5 / 262.5 Inj 250 ML @ 250 mls/hr IV.SIG Q12H [facility] Rx#:[id number] Vancomycin Inj 1,500 MG In NS 515 / 515 515 / 515 Inj 500 ML @ 250 mls/hr IV.SIG Q12H [facility] Rx#:[id number] Other: Mode Setting Right Foot Continuous Continuous # Voids 4 Date of Last Bowel Movement 04/28/18 Narrative: Heart sounds regular rate and rhythm, no murmurs Clear lungs bilaterally, labored breathing Overall unchanged exam of right foot since yesterday, wound VAC in place over medial aspect, no edema, no erythema noted Results - Labs CBC & Chem 7: 04/28/18 15:13 04/29/18 07:14 Laboratory Results - last 24 hr 04/28/18 04/28/18 04/29/18 15:13 15:13 07:14 WBC 4.3 RBC 3.27 L Hgb 9.5 L Hct 27.8 L MCV 85.2 MCH 29.1 MCHC 34.2 RDW 15.9 Plt Count 114 L MPV 7.3 Neut % (Auto) 63.5 Lymph % (Auto) 29.5 [place] % (Auto) 6.1 Eos % (Auto) 0.6 Baso % (Auto) 0.3 Neut # (Auto) 2.7 Lymph # (Auto) 1.3 [place] # (Auto) 0.3 Eos # (Auto) 0.0 Baso # (Auto) 0.0 WBC Differential . Differential Comment Auto diff final Sodium 142 Potassium 3.8 Chloride 111 H Carbon Dioxide 25.8 Anion Gap 5 BUN 18 Creatinine 0.83 0.67 Estimated GFR 74 L Greater than 89 Random Glucose 146 H Calcium 8.2 L Microbiology 04/28/18 15:13 Blood - Peripheral Aerobic Blood Culture - Preliminary No growth in 1 day 04/28/18 15:13 Blood - Peripheral Anaerobic Blood Culture - Preliminary No growth in 1 day 04/28/18 15:08 Blood - Peripheral Aerobic Blood Culture - Preliminary No growth in 1 day 04/28/18 15:08 Blood - Peripheral Anaerobic Blood Culture - Preliminary No growth in 1 day 04/27/18 08:15 Wound - Foot Gram Stain - Final 04/27/18 08:15 Wound - Foot Wound Culture - Final Staphylococcus aureus 04/27/18 08:15 Wound - Foot Fungal Smear - Final No fungal elements seen 04/27/18 08:15 Wound - Foot Acid Fast Bacilli Smear - Final No acid fast bacilli seen Assessment and Plan - Plan 47-year-old white female who was admitted initially to the chest pain center, deemed needed only medical management by cardiology. Found to have a infectious wart like lesion on her right hindfoot/midfoot. Is now status post excision and debridement, specimen pending on path. Will start on antibiotics by podiatry. Cellulitis/abscess/infected scab Continue antibiotics, wound VAC in place, Right foot wide excision soft tissue mass measuring approximately 2 cm x 2 cm with 1.5 cm depth on 04/28/18 -Foot wound cultures growing pansensitive staph aureus, stop Vanco mycin and Zosyn, starting rocephin -Pathology from surgery still pending, follow-up blood cultures -Phase 2 of operation possible this afternoon per podiatry - pain control (IV pain medication alteration w/ percocet) Hypertension Continue amlodipine Vistaril as needed anxiety lovenox
[2018-04-29] MEDS ORDERED: Chlorhexidine Gluconate 2% 1 Pack (2 Cloths) TOPICAL ONE (16:25)
[2018-04-29] MEDS ORDERED: Metoprolol Tartrate 25 MG Tablet PO SCH (16:25)
[2018-04-29] MEDS ORDERED: Sodium Chlor 0.9% Inj 500 ML IV.SIG SCH (17:00)
[2018-04-29] MEDS ORDERED: Bupivacaine 0.5% Inj 50 ML MDV Vial ONE (19:43)
[2018-04-29] MEDS ORDERED: *morphine SULFATE 10 MG/ML PERIprocedure ONLY ONE (20:22)
[2018-04-29] MEDS ORDERED: fentaNYL Citrate Inj 100 MCG/2 ML Ampul ONE (20:22)
--- NOTE | 2018-04-29 20:25 | P.BOP ---
- Preoperative Diagnosis (1) Ulcer of right foot with fat layer exposed (2) Mass of skin of right foot - Postoperative Diagnosis (1) Mass of skin of right foot (2) Ulcer of right foot with fat layer exposed Date of procedure: 04/29/18 Procedure: 1. transpositional skin flap and primary closure ulcer right plantar foot Wound from previous surgery addressed and skin flap raised by continuing distal laterally and proximal/medially an additional 3cm in each direction. Raised full -thickness flap to transpose skin after debulking of subcutaneous fat pad in the area and copious irrigation. Primary closure with 2-0 nylon suture. Dressing with xeroform, 4x4, abd pad, cast padding, gali right foot. No tourniquet utilized. DISPOSITION: Ok to discharge home. Strict nonweightbearing right lower extremity. Follow up in clinic in 1 week for dressing change, 2-3 weeks to assess for possible suture removal. Educated patient to not smoke or else suffer limb-threatening wound healing complications. Implants: n/a Anesthesia: GETA, local (10mL 0.5% marcaine plain) Surgeon: Ivonne Garcia DPM [employer]rimping Boat Captain: staff Estimated blood loss (mL): 30 Pathology: none sent Condition: stable Disposition: PACU
[2018-04-30] MEDS: Morphine Inj 4 MG/ML Vial IV.PUSH PRN ×3 (01:15→10:48)
[2018-04-30] MEDS ORDERED: Pharmacy Ordered Lab Info OTHER ONE (04:45)
[2018-04-30] MEDS: Sod Chloride 0.9% Inj 1,000 ML IV.CONT SCH ×2 (06:21→14:36)
[2018-04-30] MEDS: Aspirin 325 MG Tablet PO SCH (09:10)
[2018-04-30] MEDS: amLODIPine 5 MG Tablet PO SCH (09:10)
--- NOTE | 2018-04-30 11:11 | P.DS ---
Date of admission: 04/25/18 11:14 Primary care physician: No Primary Care Physician Brief History from admission: This is a 47-year-old female with prior history of hypertension but states she is taken off medication 2 years ago after losing weight and blood pressure normalizing, also history of tobacco abuse, that presents to ED to be evaluated for cough and chest pain. Patient states that she has had a dry cough for the past 2 weeks. She had no fever until last night at which time she states that her temperature was 104. Took no medication for it. Went to the pharmacy and spoke with somebody and was told that she should try Mucinex DM. She purchased this but has not tried it. Then around midnight last evening she developed a sharp central chest pain that has been there constantly ever since. Coughing seems to worsen. Certain movements seem to worsen. She has noticed wheezing. States there are multiple sick contacts at work. Denies history of CAD. She has had for stress test this facility. October 2009 she had a nonischemic Henry protocol ETT. About 4 months later she had adenosine thallium stress that was nonischemic. In 2012 she had another Henry protocol ETT that was nonischemic. States she has had no other cardiac evaluation since. Denies recent travel. Has had hypertension in the past. She states that she was told by her physician at the time that she no longer any medicine 2 years ago after losing weight. Denies hyperlipidemia, diabetes, and known CAD. States that her father had onset CAD at age 45. He had a bypass. He at age 74 of congestive heart failure. Patient has been smoking 1/2 pack of cigarettes daily for about a year and a half a prior that she was smoke 2 pack of cigarettes daily for about 25 years. She has had no alcohol in about a year. Denies illicit drug use. DS: Medications - Discharge Medications Prescriptions: amlodipine [Norvasc] 5 mg PO DAILY #30 tab cefdinir 600 mg PO DAILY #10 cap oxycodone-acetaminophen 1 tab PO Q8H PRN #21 tab PRN Reason: Acute Pain DS: Summary Hospital Course: 47-year-old white female admitted initially to the chest pain center. Onset chest pain induced secondary to coughing, but was also found to have a masslike lesion on her right foot with purulent drainage. 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 Underwent a second surgery with a flap graft. Patient's pain level is controlled. Patient has met maximum benefit from hospitalization is clinically stable for discharge. Patient was advised to refrain from weightbearing on her right foot. [employer] Prescription Drug Monitoring Database has been queried and verified prior to prescribing the controlled subsection. Patient is having significant pain caused by her surgery which will last more than 3 days. Trial of alternative treatment options other than prescribed opioids has not helped. I believe that it is medically necessary to treat the patients pain because it is affecting patients ability to function. - Time Spent with Patient Total time spent providing and/or coordinating discharge services: Less than 30 minutes - Quality: VTE Deep Vein Thrombosis/Pulmonary Embolism Present on Admission: No Exam Vital signs: Vital Signs 04/29/18 12:00 04/29/18 14:53 04/29/18 15:48 Temperature 97.6 F 98.7 F Pulse Rate 64 63 Respiratory Rate 16 20 Blood Pressure 168/81 H 163/96 H Pulse Oximetry 96 97 99 04/29/18 19:09 04/29/18 20:17 04/29/18 20:30 Temperature 98.2 F Pulse Rate 72 70 Respiratory Rate 16 12 10 L Blood Pressure 142/63 H 155/73 H Pulse Oximetry 99 97 04/29/18 20:45 04/29/18 21:00 04/29/18 23:24 Temperature 97.4 F L Pulse Rate 65 60 77 Respiratory Rate 15 14 20 Blood Pressure 159/76 H 147/73 H 154/70 H Pulse Oximetry 95 95 97 04/30/18 03:49 04/30/18 07:43 Temperature 97.4 F L 97.8 F Pulse Rate 78 57 L Respiratory Rate 17 18 Blood Pressure 140/65 154/67 H Pulse Oximetry 95 96 Intake & Output 04/29/18 04/30/18 04/30/18 18:59 06:59 18:59 Intake Total 1665 / 1665 1400 / 1400 Output Total 355 / 355 Balance 1665 / 1665 1045 / 1045 Intake: IV 1665 / 1665 1000 / 1000 NS Inj 1,000 ML @ 100 mls/hr IV 1000 / 1000 1000 / 1000 .CONT .Q10H [facility] Rx#:[id number] Zosyn 3.375 GM Premix 50 ML @ 50 / 50 100 mls/hr IV.SIG Q8H [facility] Rx#: [id number] Vancomycin Inj 1,500 MG In NS 515 / 515 Inj 500 ML @ 250 mls/hr IV.SIG Q12H [facility] Rx#:[id number] Rocephin Inj 1,000 MG In NS Inj 100 / 100 100 ML @ 200 mls/hr IV.SIG Q24H [facility] Rx#:[id number] Oral 100 / 100 Anesthesia Amount 300 / 300 Output: Urine 325 / 325 Estimated Blood Loss 30 / 30 Other: Mode Setting Right Foot Continuous # Voids 2 Date of Last Bowel Movement 04/30/18 Narrative: Right foot wrapped in postoperative dressing Intact sensation with good color in her toes and her right foot Patient is in no acute distress Awake and alert Clear lungs bilaterally, unlabored breathing Heart sounds regular rate and rhythm Results Procedures completed during hospitalization: Right foot wide excision soft tissue mass measuring approximately 2 cm x 2 cm with 1.5 cm depth on 04/27 wound VAC placement transpositional skin flap and primary closure ulcer right plantar foot on 04/29 Completed studies during hospitalization: Pending at discharge 04/27/18 09:44 Surgical [PTH] Routine Labs on day of discharge: Preliminary micro results at discharge 04/28/18 15:13 Aerobic Blood Culture - Preliminary Blood - Peripheral No growth in 2 days Anaerobic Blood Culture - Preliminary No growth in 2 days 04/28/18 15:08 Aerobic Blood Culture - Preliminary Blood - Peripheral No growth in 2 days Anaerobic Blood Culture - Preliminary No growth in 2 days - Impressions ITS Impressions Foot X-Ray 04/25/18 00:00 CONCLUSION: No definite radiopaque foreign body. Nonspecific soft tissue swelling along the plantar surface of the foot. Chest X-Ray 04/25/18 09:25 CONCLUSION: No acute cardiopulmonary abnormality is identified. Myocardial Perfusion Scan Nuc Med 04/26/18 07:16 CONCLUSION: Possible mild ischemia in the anterior and lateral villareal. Foot CT 04/27/18 00:00 CONCLUSION: 1. No abscess. Inflammatory changes involving the skin and immediate subcutaneous fat of the plantar soft tissues approaching the heel. Discharge Plan - Discharge Disposition Patient Disposition: Discharge Home - Discharge Condition Condition: Stable - Discharge Order Discharge Orders: Discharge Order (Routine); Ordered 04/30/18 Ordered By: Ramakrishna Irving - Physicians Team Primary Care Provider: Primary Care Ivon Duncan Attending Provider: Ramakrishna Irving Other Providers: Marco Millan DPM
--- NOTE | 2018-05-02 20:10 | MP ---
cc: Ivonne Garcia DPRohit DATE OF OPERATION: 04/29/2018 INDICATIONS: The patient presented initially with an ulcerative mass that appeared to be infected and it was excised by Dr. Rm. Following this excision, it was noted to the medial aspect of the right heel in the arch area and was noted to be large in that area, approximately 1.5 cm diameter, possibly 2 cm in diameter. The patient had discussed with Dr. Rm that she would require another surgery which would either involve skin grafting versus a transpositional skin flap in order to attempt primary closure and discussed with the patient that since she is a smoker, she will have wound healing complications regardless of the procedure choice and needs to stop smoking immediately. The patient understood the risks, benefits and complications of surgery. She agreed to move forward with transpositional skin flap for primary closure of ulcer, right plantar foot. Her biopsy results had come back a squamous cell carcinoma from her excision with Dr. Rm. DESCRIPTION OF PROCEDURE: She was seen in preop holding by myself, nursing staff and anesthesia where the correct patient, side and site were all confirmed to be correct and the right foot. She was then taken to the surgical suite in supine position. The right foot was prepped and draped in normal sterile fashion. Following a timeout per facility protocol, the wound from the previous surgery was addressed and noted to be approximately 2 cm in diameter. A skin flap was raised by continuing distally and laterally as well as proximally and medially an additional curvilinear line 3 cm in length in each direction and a full-thickness flap was raised in order to transpose the skin both medially and laterally. After debulking some of the subcutaneous fat pad in the area and copious irrigation, the flap was transposed and closed primarily with 2-0 nylon suture. A dressing consisting of Xeroform, 4 x 4's, ABD, cast padding and Ankit were applied to the right foot. The patient tolerated the procedure and anesthesia well without complication and was taken back to the PACU with vital signs stable and vascular status intact to the remainder of the right foot. She will be strict nonweightbearing to the right lower extremity and will need to adhere to not smoking in order to reduce her risk of wound healing complications and follow up in the clinic in 1 week for a dressing change. No further surgery is planned at this time. SHORT OPERATIVE NOTE SURGEON: Ivonne Garcia DPM SPRINKLER DRIVER: Staff. PREOPERATIVE DIAGNOSES: 1. Ulcer, right foot, with fat layer exposed. 2. Mass of skin, right foot. POSTOPERATIVE DIAGNOSES: 1. Ulcer, right foot, with fat layer exposed. 2. Mass of skin, right foot. PROCEDURE PERFORMED: Transpositional skin flap and primary closure of ulcer, right plantar foot. PATHOLOGY: None. PROPHYLAXIS: Two grams Ancef IV preoperatively. ESTIMATED BLOOD LOSS: 30 mL. ANESTHESIA: General endotracheal anesthesia plus local consisting of 10 mL of 0.5% Marcaine plain. CONDITION: Stable to PACU. COMPLICATIONS: None. DISPOSITION: Strict nonweightbearing to the right lower extremity. Follow up in the clinic in 1 week for a dressing change. HOMERO Phillips , 04:11 PM , 04:19 PM
== END 2018-04-30 16:00 | disposition home or self-care (01) ==
LOC: NEDA 08:05 → NEPC 08:05 → NEPGCP 12:15
PROVIDERS: ADMIT Hospitalist; ATTEND Hospitalist

== ENCOUNTER 2018-05-15 13:18 | Inpatient (IN) ==
--- NOTE | 2018-05-15 13:54 | ED ---
HPI General Chief complaint: Skin/Abscess/Foreign Body Stated complaint: wound infection Time Seen by Provider: 05/15/18 13:42 Source: patient Mode of arrival: ambulatory Limitations: no limitations History of Present Illness HPI narrative: 47 y/o female presents with with redness and swelling to her right foot that she recently had surgery on. She states she was on clindamycin last week but has been off of that for past couple days. She states that this was her second surgery. She denies any fever or other concurrent complaints. She confirms henry was her surgeon. She states that area hurts more if you touch it. She denies other modifying factors. Related Data Home Medications Medication Instructions Recorded Confirmed No Known Home Medications 04/25/18 05/15/18 Allergies Allergy/AdvReac Type Severity Reaction Status Date / Time codeine AdvReac Severe itching Verified 04/25/18 08:09 Review of Systems ROS: all other systems reviewed are negative [facility] Medical History Medical History Alcoholic cirrhosis (Acute) HTN (hypertension) (Acute) Hx of hysterectomy (Acute) Surgical History Surgical History Hx of appendectomy (Acute) Hx of cholecystectomy (Acute) Social History Social History Substance History: No History of Abuse Second Hand Smoke Exposure: Yes Smoking Status: Current every day smoker Tobacco Type: Cigarettes How Often Do You Have a Drink Containing Alcohol: Never Recent Travel in [facility] within the Last 8 Weeks: No Recent Out of Country Travel within the Last 8 Weeks: No Immunization History Tetanus Immunization: <5 Years Exam Narrative Exam Narrative: GENERAL: 47-year-old female in no apparent distress SKIN: To medial arch of right midfoot near her sutures there is erythema and warmth noted it does not extend up into her ankle or her dorsal foot HEAD: Atraumatic. Normocephalic. EYES: Pupils equal and round. No scleral icterus. No injection or drainage. ENT: No nasal bleeding or discharge. Mucous membranes pink and moist. NECK: Trachea midline. No JVD. CARDIOVASCULAR: Regular rate and rhythm. No murmur appreciated. RESPIRATORY: No accessory muscle use. No increased effort GASTROINTESTINAL: Abdomen nondistended MUSCULOSKELETAL: No obvious deformities. No clubbing. No cyanosis. No edema. NEUROLOGICAL: Awake and alert. No obvious cranial nerve deficits. Motor grossly within normal limits. Normal speech. PSYCHIATRIC: Appropriate mood and affect; insight and judgment normal. Course Reevaluation(s) Reevaluation #1: Patient had requested pain medication while I was doing with the surgical patient and I had ordered her Tylenol and she got very upset and started yelling at me. After I got off the phone with the surgeon I went back and talked with the patient and she states she needs something stronger. She will be given a one-time dose of morphine and agrees to admission for IV antibiotic therapy Consultations Consultation #1: dr dick agrees to observation, will see in am Consultation #2: resident team agrees to admit Initial Documented Vital Signs Temperature 98.6 F 05/15/18 13:20 Pulse Rate 95 H 05/15/18 13:20 Respiratory Rate 16 05/15/18 13:20 Blood Pressure 173/87 H 05/15/18 13:20 Pulse Oximetry 100 05/15/18 13:20 Last Documented Vital Signs Temperature 98.6 F 05/15/18 13:20 Pulse Rate 95 H 05/15/18 13:56 Respiratory Rate 16 05/15/18 13:56 Blood Pressure 131/71 05/15/18 13:56 Pulse Oximetry 99 05/15/18 13:56 Medical Decision Making MDM Narrative Medical decision making narrative: We will check blood work and x-ray to evaluate extent of infection. On exam looks localized around sutures and if blood work x-ray are normal and patient is currently not on antibiotics she could likely be sent home on oral antibiotic therapy Medical Screen Exam Complete: Yes Emergency Medical Condition: Yes Differential Diagnosis Differential Diagnosis: Cellulitis, abscess, postop infection Lab Data Result diagrams: 05/15/18 13:53 05/15/18 13:53 Lab Results 05/15/18 05/15/18 05/15/18 Range/Units 13:53 13:53 13:53 WBC 4.0 (4.0-11.0) th/mm3 RBC 4.08 (4.00-5.30) mil/mm3 Hgb 12.1 (11.6-15.3) gm/dL Hct 34.2 L (35.0-46.0) % MCV 83.8 (80.0-100.0) fL MCH 29.5 (27.0-34.0) pg MCHC 35.3 (32.0-36.0) % RDW 15.9 (11.6-17.2) % Plt Count 173 D (150-450) th/mm3 MPV 7.5 (7.0-11.0) fL Neut % (Auto) 49.6 (16.0-70.0) % Lymph % (Auto) 37.8 (9.0-44.0) % Harding % (Auto) 9.4 H (0.0-8.0) % Eos % (Auto) 2.6 (0.0-4.0) % Baso % (Auto) 0.6 (0.0-2.0) % Neut # (Auto) 2.0 (1.8-7.7) th/mm3 Lymph # (Auto) 1.5 (1.0-4.8) th/mm3 Harding # (Auto) 0.4 (0.0-0.9) th/mm3 Eos # (Auto) 0.1 (0.0-0.4) th/mm3 Baso # (Auto) 0.0 (0.0-0.2) th/mm3 WBC Differential . Differential Comment Auto diff final Sodium 143 (136-145) meq/L Potassium 4.2 (3.5-5.1) meq/L Chloride 108 H (98-107) meq/L Carbon Dioxide 26.7 (21.0-32.0) meq/L Anion Gap 8 (5-15) meq/L BUN 12 (7-18) mg/dL Creatinine 0.81 (0.50-1.00) mg/dL Estimated GFR 76 L (>89) mL/min Random Glucose 55 L (74-106) mg/dL Lactic Acid 0.9 (0.4-2.0) mmol/L Calcium 8.5 (8.5-10.1) mg/dL Imaging Data Radiologist's impression: Foot X-Ray 05/15/18 13:46 CONCLUSION: No acute bony abnormality is seen. Questionable changes in the anterior heel fat pad. Discharge Plan Discharge Disposition Patient Disposition: ED Admit(ED Internal Use Only) Discharge Order Discharge Orders: ED Use Only Admit Order (Routine); Ordered 05/15/18 Ordered By: Corie Liu Discharge Details Diagnosis: Foot infection Physicians Team ED Provider: Corie Liu Primary Care Provider: Primary Care Luzmai,Ivon Rxs /Orders / Referrals /Forms Prescriptions: No Action No Known Home Medications RF: 0 Discharge Interventions Interventions: Vital Signs Last Done: 05/15/18 13:56 Status ED Status: Admitted Observation Patient
[2018-05-15 14:22] LABS: Baso % (Auto) 0.6 % (0.0-2.0); Eos # (Auto) 0.1 th/mm3 (0.0-0.4); Eos % (Auto) 2.6 % (0.0-4.0); Hematocrit 34.2 % (35.0-46.0); Hemoglobin 12.1 gm/dL (11.6-15.3); Lymph # (Auto) 1.5 th/mm3 (1.0-4.8); Lymph % (Auto) 37.8 % (9.0-44.0); Mean Corpuscular HGB Conc 35.3 % (32.0-36.0); Mean Corpuscular Hemoglobin 29.5 pg (27.0-34.0); Mean Corpuscular Volume 83.8 fL (80.0-100.0); Mean Platelet Volume 7.5 fL (7.0-11.0); Mono # (Auto) 0.4 th/mm3 (0.0-0.9); Mono % (Auto) 9.4 % (0.0-8.0); Neut % (Auto) 49.6 % (16.0-70.0); Platelet Count 173 th/mm3 (150-450); Red Blood Count 4.08 mil/mm3 (4.00-5.30); Red Cell Distribution Width 15.9 % (11.6-17.2)
--- NOTE | 2018-05-15 14:30 | XR ---
EXAM DATE: 05/15/2018 2:21 PM EST AGE/SEX: 47 years / Female INDICATIONS: Infection near previous surgical site. CLINICAL DATA: This is the patient's initial encounter. Patient reports that signs and symptoms have been present for 2 weeks and indicates a pain score of 7/10. MEDICAL/SURGICAL HISTORY: . Hypertension. Hysterectomy. . Skin cancer removed from plantar kika face of right calcaneous. COMPARISON: [facility] [place], FOOT LIMITED RIGHT 2V, 04/25/2018. . FINDINGS: No fracture is seen. The bones and joints are normally aligned. There is a small calcaneal spur at th e plantar aponeurosis attachment site. There some questionable increased density at the anterior aspe ct of the heel fat pad. There is a linear area of low density which could represent some minimal air. This can be correlated with the patient's clinical symptoms. CONCLUSION: No acute bony abnormality is seen. Questionable changes in the anterior heel fat pad. Electronically signed by: Jayy Jasmine MD Board Certified Radiologist 05/15/2018 2:28 PM EST
[2018-05-15 14:46] LABS: Calcium 8.5 mg/dL (8.5-10.1); Carbon Dioxide 26.7 meq/L (21.0-32.0); Potassium 4.2 meq/L (3.5-5.1)
[2018-05-15] MEDS ORDERED: Acetaminophen 325 MG Tablet PO ONE (15:33)
[2018-05-15] MEDS ORDERED: Clindamycin 600 mg/NS Premix 600 MG/50 ML PIGGYBACK IV.SIG SCH (15:45)
[2018-05-15] MEDS ORDERED: Morphine Inj 4 MG/ML Vial IV.PUSH ONE (15:58)
--- NOTE | 2018-05-15 16:37 | P.HPFP ---
History of Present Illness Primary Care Physician: No Primary Care Physician <Oscar Fournier - 05/16/18 11:36> No Primary Care Physician <Lalitha FuentesAndre Nelson - 05/15/18 16:37> History of Present Illness: This patient is a 47-year-old female who presented to the ED after a 3-day history of increased swelling, pain, discharge of right medial ankle status post 1 week of squamous cell excisement. Patient reports that on Apr 30 she underwent surgery for a squamous cell carcinoma.Three days later patient had second surgery for continued removal of cancer. At this time she was found to have MRSA and treated outpatiently with clindamycin and reports finishing the entire course. A week later she was supposed to follow up with surgeon but did not and decided to wait for her other appointment on the . In the last couple of days she reports a pain described as twisting like "someone is twisting a rope" proximal to the incision site as well as a burning sensation just proximal to it. Over the wound itself she describes the pain as sharp and stabbing that is constant and nonradiating. Over this time she has also had blisters overlying the wound bed and has experienced fevers accompanied by diaphoresis and chills. She has also had a thick yellow almost green discharge from the wound bed. During this time patient took norco for pains also took a friends lorcet, tylenol, aleive, and a Percogesic at [facility]. She also experienced watery diarrhea that looked almost black that stared last night as well as 4 episodes of bilious non bloody vomiting. PMHx: Chronic Hep C, squamous cell carcinoma Surgical HX:Radical hysterectomy due to cervical cancer (did not undergo chemo or radiation) , appendectomy at same time of hysterectomy in 2008, Cholecystomy in 2009, Squamous cell excisement in Apr 2018 Meds: None FamHx: Father at 72 CHF had [place] and stroke. Mom at 57 due to cirrhosis of the liver due to alcoholism. Allergies: Codeine makes her a little itchy Social: Lives with befriend hedy. Previously , now . Works for the [employer] ([employer] in [place]. No children. Smoked half a pack a day for 33 years. Does not drink, denies any drug use. Code: Full PCP: None Photographer Still: Dr. Garcia <Andre Torres 05/15/18 17:18> - Diagnosis (1) Surgical wound infection (2) Dark stools (3) Tobacco abuse (4) Nausea & vomiting (5) Chronic hepatitis C <Oscar Fournier 05/16/18 11:36> (1) Surgical wound infection (2) Dark stools (3) Tobacco abuse (4) Nausea & vomiting (5) Chronic hepatitis C <Andre Torres 05/15/18 17:38> Inpatient Certification: I certify that the inpatient services were ordered in accordance with Medicare regulations governing the order. This includes certification that hospital inpatient services are reasonable and necessary and in the case of services not specified as inpatient-only under 42 CFR 419.22(n), that they are appropriately provided as inpatient services in accordance to with the 2-midnight benchmark under 43 CFR 412.3(e) <Oscar Fournier 05/16/18 11:36> Review of Systems Constitutional: Endorses subjective fevers and chills, Denies headache(s), Denies dizziness, Eyes: Denies change in vision, Denies double vision, Denies blurry vision Cardiovascular: Denies chest pain, Denies fast heart rate, Denies rapid, pounding, or irregular heartbeat Respiratory: Denies shortness of breath or wheezing Gastrointestinal: Endorses 4 episodes of bilious nonbloody vomiting as well as watery almost black stool, denies abdominal pain, Denies constipation, Genitourinary: Denies difficulty urinating, Denies painful urination, Denies urinary frequency, Denies blood in urine <Andre Torres 05/15/18 17:30> PMFSH - History History Provided By: Patient <Andre Torres 05/15/18 16:37> - Medical History Medical History: Medical History (Last Reviewed 05/15/18 @ 13:53 by Corie Liu MD) Alcoholic cirrhosis HTN (hypertension) Hx of hysterectomy <Oscar Fournier 05/16/18 11:36> Medical History (Last Reviewed 05/15/18 @ 13:53 by Corie Liu MD) Alcoholic cirrhosis HTN (hypertension) Hx of hysterectomy <Andre Torres 05/15/18 16:37> - Surgical History Surgical History: Surgical History (Last Reviewed 05/15/18 @ 13:53 by Corie Liu MD) Hx of appendectomy Hx of cholecystectomy <Oscar Fournier 05/16/18 11:36> Surgical History (Last Reviewed 05/15/18 @ 13:53 by Corie Liu MD) Hx of appendectomy Hx of cholecystectomy <Andre Torres 05/15/18 16:37> - Tobacco History Second Hand Smoke Exposure: Yes <Andre Torres 05/15/18 16:37> Tobacco Use In Past 30 Days: Yes <Andre Torres 05/15/18 16:37> Smoking Status: Current every day smoker <Andre Torres 05/15/18 16:37> Tobacco Type: Cigarettes <Andre Torres 05/15/18 16:37> - Alcohol History How Often Do You Have a Drink Containing Alcohol: Never <Andre Torres 16:37> - Substance Use History Substance History: No History of Abuse <Andre Torres 05/15/18 16:37> - Travel History Recent Travel in the [facility] Within the Last 8 Weeks: No <Andre Torres 05/15 16:37> Recent Travel Out of the Country Within the Last 8 Weeks: No <Andre Torres 05/15/18 16:37> - Immunization History Tetanus Immunization: <5 Years <Andre Torres 05/15/18 16:37> Medications and Allergies Allergies Allergy/AdvReac Type Severity Reaction Status Date / Time codeine AdvReac Severe itching Verified 04/25/18 08:09 <Oscar Fournier 05/16/18 11:36> Home Medications Medication Instructions Recorded Confirmed Type No Known Home Medications 04/25/18 05/15/18 History <Oscar Fournier 05/16/18 11:36> Active Medications: Active Medications Hydrocodone Bitart/Acetaminophen (Cicero 10/325) 1 tab PO Q4H PRN PRN Reason: PAIN SCALE 6 TO 10 Last Admin: 05/16/18 07:25 Dose: 1 tab Hydrocodone Bitart/Acetaminophen (Cicero 5/325) 1 tab PO Q4H PRN PRN Reason: PAIN SCALE 3 TO 5 Al Hydroxide/Mg Hydroxide (Milk Of Magnesia Liq) 30 ml PO Q12H PRN PRN Reason: Mild Constipation Bisacodyl (Dulcolax Supp) 10 mg RECTAL DAILY PRN PRN Reason: SEVERE CONSITIPATION Vancomycin HCl 1,000 mg/ (Sodium Chloride) 250 mls @ 250 mls/hr IV.SIG Q12H [facility] Last Infusion: 05/16/18 06:51 Dose: Infused Ibuprofen (Motrin) 400 mg PO Q6HR PRN PRN Reason: PAIN SCALE 1 TO 2 Ketorolac Tromethamine (Toradol Inj) 30 mg IV.PUSH Q6H [facility] Lactobacillus Acidophilus (Lactinex Pkt) 1 gm PO TID [facility] Last Admin: 05/16/18 09:20 Dose: 1 gm Lactulose (Lactulose Liq) 30 ml PO DAILY PRN PRN Reason: SEVERE CONSITIPATION Miscellaneous Information ([facility] Ordered Lab Info) 1 each OTHER ONCE ONE Stop: 05/17/18 05:46 Morphine Sulfate (Morphine Inj) 4 mg IV.PUSH Q3H PRN PRN Reason: BREAKTHROUGH PAIN Last Admin: 05/16/18 09:21 Dose: 4 mg Naloxone HCl (Narcan Inj) 0.4 mg IV.PUSH UNSCH PRN PRN Reason: SEE LABEL COMMENTS Ondansetron HCl (Zofran Inj) 4 mg IV.PUSH Q6H PRN PRN Reason: NAUSEA OR VOMITING Last Admin: 05/16/18 03:25 Dose: 4 mg Patch Removal (Remove Old Patch) 1 each T-DERMAL DAILY [facility] Pharmacy Profile Note (Vancomycin Consult Pharmacy) 1 each OTHER UNSCH PRN PRN Reason: Pharmacy to dose Sennosides (Senokot) 17.2 mg PO Q12H PRN PRN Reason: Moderate Constipation Sodium Chloride (Ns Flush) 2 ml IV.FLUSH BID [facility] Last Admin: 05/16/18 09:20 Dose: 2 ml Sodium Chloride (Ns Flush) 2 ml IV.FLUSH PRN PRN PRN Reason: FLUSH AFTER USING IV ACCESS <Oscar Fournier - 05/16/18 11:36> Exam Vital signs: Vital Signs 05/15/18 13:20 05/15/18 13:56 05/15/18 20:00 Temperature 98.6 F 98 F Pulse Rate 95 H 95 H 91 H Respiratory Rate 16 16 18 Blood Pressure 173/87 H 131/71 146/78 H Pulse Oximetry 100 99 98 05/16/18 00:00 05/16/18 04:00 05/16/18 08:00 Temperature 97.7 F 97.8 F 97.6 F Pulse Rate 86 77 80 Respiratory Rate 16 14 18 Blood Pressure 164/89 H 155/85 H 169/90 H Pulse Oximetry 99 99 98 Intake & Output 05/15/18 05/16/18 05/16/18 18:59 06:59 18:59 Intake Total 50 / 50 1005 / 1005 Balance 50 / 50 1005 / 1005 Weight 77.111 kg 82.9 kg Intake: IV 50 / 50 765 / 765 Cleocin 600 mg/NS Premix 600 mg 50 / 50 In 50 ml @ 100 mls/hr IV.SIG NOW [facility] Rx#:[id number] Vancomycin Inj 1,000 MG In NS 250 / 250 Inj 250 ML @ 250 mls/hr IV.SIG Q12H [facility] Rx#:[id number] Vancomycin Inj 1,500 MG In NS 515 / 515 Inj 500 ML @ 250 mls/hr IV.SIG ONCE ONE Rx#:[id number] Oral 240 / 240 Other: # Voids 2 Weight On Admission 84.1 kg <Oscar Fournier - 05/16/18 11:36> Vital Signs 05/15/18 13:20 05/15/18 13:56 Temperature 98.6 F Pulse Rate 95 H 95 H Respiratory Rate 16 16 Blood Pressure 173/87 H 131/71 Pulse Oximetry 100 99 Intake & Output 05/14/18 05/15/18 05/15/18 18:59 06:59 18:59 Weight 77.111 kg <Lalitha FuentesAndre Nelson - 05/15/18 16:37> Narrative: GENERAL: Well-nourished, well-developed patient. No acute distress. SKIN: Surgical wound bed on medial right ankle with erythematous surrounding measuring approximately 15 x 8 cm. Crusted over white/yellowish discharge overlying the wound bed. Area warm to the touch. No fluctuance or induration noted. No dehiscence of sutures. Area of erythema demarcated with surgical pen. EYES: No scleral icterus. No injection or drainage. PERRLA. EOMI. HENT: Normocephalic. Atraumatic. MMM. OP Benign. NECK: Supple, trachea midline. No JVD or lymphadenopathy. CARDIOVASCULAR: Regular rate and rhythm without obvious murmurs, gallops, or rubs. RESPIRATORY: Breath sounds equal bilaterally. No accessory muscle use. CTAB. GASTROINTESTINAL: Abdomen soft, non-tender, nondistended. BS WNL. MUSCULOSKELETAL: No cyanosis or edema. Strength grossly WNL. BACK: Nontender without obvious deformity. No CVA tenderness. NEURO/PSYCH: Afocal. Awake, alert, and oriented x3. <Andre Torres - 05/15/18 17:18> Results - Labs Result diagrams: 05/16/18 09:16 05/16/18 09:16 <Oscar Fournier - 05/16/18 11:36> Abnormal lab results 05/15/18 05/15/18 05/15/18 Range/Units 13:53 13:53 13:53 WBC (4.0-11.0) th/mm3 Hct 34.2 L (35.0-46.0) % Plt Count (150-450) th/mm3 [place] % (Auto) 9.4 H (0.0-8.0) % Eos % (Auto) (0.0-4.0) % Neut # (Auto) (1.8-7.7) th/mm3 Lymph # (Auto) (1.0-4.8) th/mm3 ESR 68 H (0-20) mm/hr Chloride 108 H (98-107) meq/L Estimated GFR 76 L (>89) mL/min Random Glucose 55 L (74-106) mg/dL AST (15-37) U/L ALT (10-53) U/L Alkaline Phosphatase (45-117) U/L Total Protein (6.4-8.2) g/dL Albumin (3.4-5.0) g/dL 05/16/18 05/16/18 05/16/18 Range/Units 09:16 09:16 09:16 WBC 2.7 L (4.0-11.0) th/mm3 Hct (35.0-46.0) % Plt Count 146 L (150-450) th/mm3 [place] % (Auto) (0.0-8.0) % Eos % (Auto) 4.1 H (0.0-4.0) % Neut # (Auto) 1.5 L (1.8-7.7) th/mm3 Lymph # (Auto) 0.9 L (1.0-4.8) th/mm3 ESR 59 H (0-20) mm/hr Chloride 108 H (98-107) meq/L Estimated GFR (>89) mL/min Random Glucose (74-106) mg/dL AST 66 H (15-37) U/L ALT 75 H (10-53) U/L Alkaline Phosphatase 235 H (45-117) U/L Total Protein 8.3 H (6.4-8.2) g/dL Albumin 3.3 L (3.4-5.0) g/dL Short CBC 05/15/18 05/16/18 Range/Units 13:53 09:16 WBC 4.0 2.7 L (4.0-11.0) th/mm3 Hgb 12.1 12.0 (11.6-15.3) gm/dL Hct 34.2 L 35.7 (35.0-46.0) % Plt Count 173 D 146 L (150-450) th/mm3 BMP 05/15/18 05/16/18 13:53 09:16 Sodium 143 141 Potassium 4.2 4.2 Chloride 108 H 108 H Carbon Dioxide 26.7 24.9 BUN 12 17 Creatinine 0.81 0.67 Calcium 8.5 9.0 Liver Function 05/16/18 Range/Units 09:16 Total Bilirubin 0.4 (0.2-1.0) mg/dL AST 66 H (15-37) U/L ALT 75 H (10-53) U/L Alkaline Phosphatase 235 H (45-117) U/L Albumin 3.3 L (3.4-5.0) g/dL <Oscar Fournier - 05/16/18 11:36> Abnormal lab results 05/15/18 05/15/18 Range/Units 13:53 13:53 Hct 34.2 L (35.0-46.0) % [place] % (Auto) 9.4 H (0.0-8.0) % Chloride 108 H (98-107) meq/L Estimated GFR 76 L (>89) mL/min Random Glucose 55 L (74-106) mg/dL Short CBC 05/15/18 Range/Units 13:53 WBC 4.0 (4.0-11.0) th/mm3 Hgb 12.1 (11.6-15.3) gm/dL Hct 34.2 L (35.0-46.0) % Plt Count 173 D (150-450) th/mm3 BMP 05/15/18 13:53 Sodium 143 Potassium 4.2 Chloride 108 H Carbon Dioxide 26.7 BUN 12 Creatinine 0.81 Calcium 8.5 <Andre Torres - 05/15/18 16:37> - Imaging Impressions Foot X-Ray 05/15/18 13:46 CONCLUSION: No acute bony abnormality is seen. Questionable changes in the anterior heel fat pad. Foot MRI 05/15/18 21:58 CONCLUSION: 1. Subcutaneous swelling is noted throughout the right medial ankle and foot. No underlying subcutaneous abscess is noted. 2. Minimal nonspecific edema is noted involving the medial aspect of the talar dome consistent with possible bone bruise or chronic edema related to arthritic change. No definite underlying fracture is confirmed. 3. Moderate arthritic changes are noted involving the first metatarsophalangeal joint with subcortical changes of the first metatarsal head. <Oscar Fournier - 05/16/18 11:36> Impressions Foot X-Ray 05/15/18 13:46 CONCLUSION: No acute bony abnormality is seen. Questionable changes in the anterior heel fat pad. <Andre Torres 05/15/18 16:37> Caprini VTE Risk Assessment Caprini VTE Risk Assessment: Moderate/High Risk (score >= 2) <Andre Torres 05/15/18 17:49> Caprini Risk Assessment Model: Point Value = 1 Point Value = 2 Point Value = 3 Point Value = 5 Age 41-60 Minor surgery BMI > 25 kg/m2 Swollen legs Varicose veins or History of unexplained or recurrent spontaneous Oral contraceptives or hormone replacement Sepsis (< 1 month) Serious lung disease, including pneumonia (< 1 month) Abnormal pulmonary function Acute myocardial infarction Congestive heart failure (< 1 month) History of inflammatory bowel disease Medical patient at bed rest Age 61-74 Arthroscopic surgery Major open surgery (> 45 min) Laparoscopic surgery (> 45 min) Malignancy Confined to bed (> 72 hours) Immobilizing plaster cast Central venous access Age >= 75 History of VTE Family history of VTE Factor V Leiden Prothrombin [id number] Lupus anticoagulant Anticardiolipin antibodies Elevated serum homocysteine Heparin-induced thrombocytopenia Other congenital or acquired thrombophilia Stroke (< 1 month) Elective arthroplasty Hip, pelvis, or leg fracture Acute spinal cord injury (< 1 month) <Oscar Fournier - 05/16/18 11:36> Point Value = 1 Point Value = 2 Point Value = 3 Point Value = 5 Age 41-60 Minor surgery BMI > 25 kg/m2 Swollen legs Varicose veins or History of unexplained or recurrent spontaneous Oral contraceptives or hormone replacement Sepsis (< 1 month) Serious lung disease, including pneumonia (< 1 month) Abnormal pulmonary function Acute myocardial infarction Congestive heart failure (< 1 month) History of inflammatory bowel disease Medical patient at bed rest Age 61-74 Arthroscopic surgery Major open surgery (> 45 min) Laparoscopic surgery (> 45 min) Malignancy Confined to bed (> 72 hours) Immobilizing plaster cast Central venous access Age >= 75 History of VTE Family history of VTE Factor V Leiden Prothrombin [id number] Lupus anticoagulant Anticardiolipin antibodies Elevated serum homocysteine Heparin-induced thrombocytopenia Other congenital or acquired thrombophilia Stroke (< 1 month) Elective arthroplasty Hip, pelvis, or leg fracture Acute spinal cord injury (< 1 month) <Andre Torres - 05/15/18 16:37> Prophylaxis Regimen: Total Risk Factor Score Risk Level Prophylaxis Regimen 0-1 Low Early ambulation 2 Moderate Order ONE of the following: *Sequential Compression Device (SCD) *Heparin 5000 units SQ BID 3-4 Higher Order ONE of the following medications: *Heparin 5000 units SQ TID *Enoxaparin/Lovenox 40 mg SQ daily (WT < 150 kg, CrCl > 30 mL/min) *Enoxaparin/Lovenox 30 mg SQ daily (WT < 150 kg, CrCl > 10-29 mL/min) *Enoxaparin/Lovenox 30 mg SQ BID (WT < 150 kg, CrCl > 30 mL/min) AND/OR *Sequential Compression Device (SCD) 5 or more Highest Order ONE of the following medications: *Heparin 5000 units SQ TID (Preferred with Epidurals) *Enoxaparin/Lovenox 40 mg SQ daily (WT < 150 kg, CrCl > 30 mL/min) *Enoxaparin/Lovenox 30 mg SQ daily (WT < 150 kg, CrCl > 10-29 mL/min) *Enoxaparin/Lovenox 30 mg SQ BID (WT < 150 kg, CrCl > 30 mL/min) AND *Sequential Compression Device (SCD) <Oscar Fournier - 05/16/18 11:36> Total Risk Factor Score Risk Level Prophylaxis Regimen 0-1 Low Early ambulation 2 Moderate Order ONE of the following: *Sequential Compression Device (SCD) *Heparin 5000 units SQ BID 3-4 Higher Order ONE of the following medications: *Heparin 5000 units SQ TID *Enoxaparin/Lovenox 40 mg SQ daily (WT < 150 kg, CrCl > 30 mL/min) *Enoxaparin/Lovenox 30 mg SQ daily (WT < 150 kg, CrCl > 10-29 mL/min) *Enoxaparin/Lovenox 30 mg SQ BID (WT < 150 kg, CrCl > 30 mL/min) AND/OR *Sequential Compression Device (SCD) 5 or more Highest Order ONE of the following medications: *Heparin 5000 units SQ TID (Preferred with Epidurals) *Enoxaparin/Lovenox 40 mg SQ daily (WT < 150 kg, CrCl > 30 mL/min) *Enoxaparin/Lovenox 30 mg SQ daily (WT < 150 kg, CrCl > 10-29 mL/min) *Enoxaparin/Lovenox 30 mg SQ BID (WT < 150 kg, CrCl > 30 mL/min) AND *Sequential Compression Device (SCD) <Andre Torres - 05/15/18 16:37> Assessment and Plan - Assessment (1) Surgical wound infection Code(s): T81.49XA - Infection following a procedure, other surgical site, initial encounter Status: Acute (2) Dark stools Code(s): R19.5 - Other fecal abnormalities Status: Acute (3) Tobacco abuse Code(s): Z72.0 - Tobacco use Status: Acute (4) Nausea & vomiting Code(s): R11.2 - Nausea with vomiting, unspecified Status: Acute (5) Chronic hepatitis C Code(s): B18.2 - Chronic viral hepatitis C Status: Acute <Oscar Fournier - 05/16/18 11:36> (1) Surgical wound infection Code(s): T81.49XA - Infection following a procedure, other surgical site, initial encounter Status: Acute Plan: This patient is a 47-year-old woman with a history of squamous cell carcinoma status post excision 1 week ago, as well as previous MRSA infection previously treated with clindamycin, who presents to the ED with a 3-day history of erythema, inflammation, and purulent drainage. On admission patient is afebrile , no leukocytosis, lactic acid 0.9, and with no indication of sepsis or systemic infection. -Afebrile -White blood cell count of 4 -Begin vancomycin -Follow-up blood cultures -Follow-up wound cultures -Follow-up with podiatry consult (2) Dark stools Code(s): R19.5 - Other fecal abnormalities Status: Acute Plan: Patient reports a 1 day history of almost black stools. Hemodynamically stable without anemia. - Follow up occult blood stool test - Trend H/H (3) Tobacco abuse Code(s): Z72.0 - Tobacco use Status: Acute Plan: Patient has history of cigarette abuse for over 33 years. Patient request patch. -Nicotine patch (4) Nausea & vomiting Code(s): R11.2 - Nausea with vomiting, unspecified Status: Acute Plan: Patient reports 4 episodes of bilious nonbloody vomiting. -Zofran PRN (5) Chronic hepatitis C Code(s): B18.2 - Chronic viral hepatitis C Status: Acute Plan: Patient reports history of chronic hep C infection. -No action required at this time Fluids: Not indicated Electrolytes: Replete as needed Nutrition: Regular diet DVT prophylaxis: Not indicated <Andre Torres - 05/15/18 17:38> - Attending Attestation Patient case discussed with resident physicians I have independently examined the patient I have read the above note and agree with the assessment and plan as discussed with me I was involved in all medical decision making for this patient Oscar Fournier MD <Oscar Fournier - 05/16/18 11:36>
[2018-05-15] MEDS ORDERED: Naloxone Inj 0.4 MG/ML Vial IV.PUSH PRN (16:49)
[2018-05-15] MEDS ORDERED: Ibuprofen 400 MG Tablet PO PRN (16:49)
[2018-05-15] MEDS ORDERED: Bisacodyl 10 MG Supp RECTAL PRN (16:55)
[2018-05-15] MEDS ORDERED: Clindamycin 900 mg/NS Premix 900 MG/50 ML PIGGYBACK IV.SIG SCH (17:00)
[2018-05-15] MEDS ORDERED: Vancomycin Consult Pharmacy OTHER PRN (17:14)
[2018-05-15] MEDS ORDERED: Vancomycin Inj 1,000 MG in Sodium Chlor 0.9% Inj 250 ML IV.SIG SCH (18:00)
[2018-05-15] MEDS ORDERED: Vancomycin Inj 1,500 MG in Sodium Chlor 0.9% Inj 500 ML IV.SIG ONE (18:00)
[2018-05-15] MEDS: Morphine Inj 4 MG/ML Vial IV.PUSH PRN (21:26)
--- NOTE | 2018-05-15 22:56 | MR ---
EXAM DATE: 05/15/2018 10:36 PM EST AGE/SEX: 47 years / Female INDICATIONS: . Infection s/p right medial ankle surgery for squamous cell carcinoma 04/30/2018. Pa in, redness, swelling and drainage at surgical site. CLINICAL DATA: This is the patient's initial encounter. Patient reports that signs and symptoms have been present for 1 day and indicates a pain score of 5/10. MEDICAL/SURGICAL HISTORY: Carcinoma, squamous cell. Cirrhosis. Carcinoma, cervical. HTN, Hep C Angioplasty. Hysterectomy. Cholecystectomy. Squamous cell removed from medial right ankle. COMPARISON: [facility] – [place] FOOT RIGHT W CONTRAST, 04/27/2018. . TECHNIQUE: Multiplanar, multisequence MRI examination was performed without contrast. FINDINGS: Bones: The osseous structures are in normal alignment. Minimal nonspecific edema is noted involving t he medial aspect of the talar dome consistent with possible bone bruise or chronic edema related to a rthritic change. No definite underlying fracture is confirmed. Moderate arthritic changes are noted i nvolving the first metatarsophalangeal joint with subcortical changes of the first metatarsal head. Joint Spaces: No joint effusion or loose bodies are seen. The joint spaces are preserved. Tendons: The flexor tendons are intact. Soft Tissues: Subcutaneous swelling is noted throughout the right medial ankle and foot. No underlyin g subcutaneous abscess is noted. Other: The plantar fascia is intact. No signal abnormalities are seen in the plantar musculature. CONCLUSION: 1. Subcutaneous swelling is noted throughout the right medial ankle and foot. No underlying subcutan eous abscess is noted. 2. Minimal nonspecific edema is noted involving the medial aspect of the talar dome consistent with possible bone bruise or chronic edema related to arthritic change. No definite underlying fracture is confirmed. 3. Moderate arthritic changes are noted involving the first metatarsophalangeal joint with subcortic al changes of the first metatarsal head. Electronically signed by: Kelton Harmon MD Board Certified Radiologist 05/15/2018 10:55 PM EST
[2018-05-16] MEDS: Morphine Inj 4 MG/ML Vial IV.PUSH PRN ×6 (01:15→22:19)
[2018-05-16] MEDS ORDERED: Vancomycin Inj 1,000 MG in Sodium Chlor 0.9% Inj 250 ML IV.SIG SCH (06:00)
--- NOTE | 2018-05-16 07:46 | P.CONPOD ---
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 Patient has continued to work on her feet and smoke throughout her postop period and has complained of pain. She was seen in the clinic for dressing changes with no sign of infection and called the clinic late last week stating there was redness and was told to go to the ED immediately and declined this. She then showed up yesterday and was admitted. MRI found no abscess present. Review of Systems All other systems reviewed negative except as stated in HPI PMF - History History Provided By: Patient - Medical History Medical History: Medical History (Last Reviewed 05/16/18 @ 06:40 by Rubin Botello) Alcoholic cirrhosis HTN (hypertension) Hx of hysterectomy - Surgical History Surgical History: Surgical History (Last Reviewed 05/16/18 @ 06:40 by Rubin Botello) Hx of appendectomy Hx of cholecystectomy - Tobacco History Second Hand Smoke Exposure: Yes Tobacco Use In Past 30 Days: Yes Smoking Status: Current every day smoker Tobacco Type: Cigarettes - Alcohol History How Often Do You Have a Drink Containing Alcohol: Monthly or less - Substance Use History Substance History: No History of Abuse - Travel History Recent Travel in the [place] Within the Last 8 Weeks: No Recent Travel Out of the Country Within the Last 8 Weeks: No - Immunization History Tetanus Immunization: <5 Years Hx Influenza Vaccine This Season: No Medications and Allergies Active Medications: Active Medications Hydrocodone Bitart/Acetaminophen ([place] 10/325) 1 tab PO Q4H PRN PRN Reason: PAIN SCALE 6 TO 10 Last Admin: 05/16/18 07:25 Dose: 1 tab Hydrocodone Bitart/Acetaminophen ([place] 5/325) 1 tab PO Q4H PRN PRN Reason: PAIN SCALE 3 TO 5 Al Hydroxide/Mg Hydroxide (Milk Of Magndomonique Liq) 30 ml PO Q12H PRN PRN Reason: Mild Constipation Bisacodyl (Dulcolax Supp) 10 mg RECTAL DAILY PRN PRN Reason: SEVERE CONSITIPATION Vancomycin HCl 1,000 mg/ (Sodium Chloride) 250 mls @ 250 mls/hr IV.SIG Q12H [facility] Last Infusion: 05/16/18 06:51 Dose: Infused Ibuprofen (Motrin) 400 mg PO Q6HR PRN PRN Reason: PAIN SCALE 1 TO 2 Lactobacillus Acidophilus (Lactinex Pkt) 1 gm PO TID [facility] Last Admin: 05/15/18 18:35 Dose: 1 gm Lactulose (Lactulose Liq) 30 ml PO DAILY PRN PRN Reason: SEVERE CONSITIPATION Miscellaneous Information ([facility] Ordered Lab Info) 1 each OTHER ONCE ONE Stop: 05/17/18 05:46 Morphine Sulfate (Morphine Inj) 4 mg IV.PUSH Q3H PRN PRN Reason: BREAKTHROUGH PAIN Last Admin: 05/16/18 05:41 Dose: 4 mg Naloxone HCl (Narcan Inj) 0.4 mg IV.PUSH UNSCH PRN PRN Reason: SEE LABEL COMMENTS Nicotine (Habitrol 21 Mg Patch.24 Hr) 1 patch T-DERMAL DAILY [facility] Last Admin: 05/15/18 18:04 Dose: 1 patch Ondansetron HCl (Zofran Inj) 4 mg IV.PUSH Q6H PRN PRN Reason: NAUSEA OR VOMITING Last Admin: 05/16/18 03:25 Dose: 4 mg Patch Removal (Remove Old Patch) 1 each [facility] Pharmacy Profile Note (Vancomycin Consult Pharmacy) 1 each OTHER UNSCH PRN PRN Reason: Pharmacy to dose Sennosides (Senokot) 17.2 mg PO Q12H PRN PRN Reason: Moderate Constipation Sodium Chloride (Ns Flush) 2 ml IV.FLUSH BID [facility] Last Admin: 05/15/18 20:17 Dose: 2 ml Sodium Chloride (Ns Flush) 2 ml IV.FLUSH PRN PRN PRN Reason: FLUSH AFTER USING IV ACCESS Allergies Allergy/AdvReac Type Severity Reaction Status Date / Time codeine AdvReac Severe itching Verified 04/25/18 08:09 Home Medications Medication Instructions Recorded Confirmed Type No Known Home Medications 04/25/18 05/15/18 History Physical Exam Vital signs: Vital Signs 05/15/18 13:20 05/15/18 13:56 05/15/18 20:00 Temperature 98.6 F 98 F Pulse Rate 95 H 95 H 91 H Respiratory Rate 16 16 18 Blood Pressure 173/87 H 131/71 146/78 H Pulse Oximetry 100 99 98 05/16/18 00:00 05/16/18 04:00 Temperature 97.7 F 97.8 F Pulse Rate 86 77 Respiratory Rate 16 14 Blood Pressure 164/89 H 155/85 H Pulse Oximetry 99 99 Intake & Output 05/15/18 05/16/18 05/16/18 18:59 06:59 18:59 Intake Total 50 / 50 1005 / 1005 Balance 50 / 50 1005 / 1005 Weight 77.111 kg 82.9 kg Intake: IV 50 / 50 765 / 765 Cleocin 600 mg/NS Premix 600 mg 50 / 50 In 50 ml @ 100 mls/hr IV.SIG NOW [facility] Rx#:[id number] Vancomycin Inj 1,000 MG In NS 250 / 250 Inj 250 ML @ 250 mls/hr IV.SIG Q12H [facility] Rx#:[id number] Vancomycin Inj 1,500 MG In NS 515 / 515 Inj 500 ML @ 250 mls/hr IV.SIG ONCE ONE Rx#:[id number] Oral 240 / 240 Other: # Voids 2 Weight On Admission 84.1 kg Narrative: Right medial heel with sutures intact. Local erythema and edema. No purulence present. Tender to palpation. No ascending erythema. Results - Labs CBC & Chem 7: 05/15/18 13:53 05/15/18 13:53 Laboratory Results - last 24 hr 05/15/18 05/15/18 05/15/18 13:53 13:53 13:53 WBC 4.0 RBC 4.08 Hgb 12.1 Hct 34.2 L MCV 83.8 MCH 29.5 MCHC 35.3 RDW 15.9 Plt Count 173 D MPV 7.5 Neut % (Auto) 49.6 Lymph % (Auto) 37.8 [place] % (Auto) 9.4 H Eos % (Auto) 2.6 Baso % (Auto) 0.6 Neut # (Auto) 2.0 Lymph # (Auto) 1.5 [place] # (Auto) 0.4 Eos # (Auto) 0.1 Baso # (Auto) 0.0 WBC Differential . Differential Comment Auto diff final ESR Sodium 143 Potassium 4.2 Chloride 108 H Carbon Dioxide 26.7 Anion Gap 8 BUN 12 Creatinine 0.81 Estimated GFR 76 L Random Glucose 55 L Lactic Acid 0.9 Calcium 8.5 05/15/18 13:53 WBC RBC Hgb Hct MCV MCH MCHC RDW Plt Count MPV Neut % (Auto) Lymph % (Auto) [place] % (Auto) Eos % (Auto) Baso % (Auto) Neut # (Auto) Lymph # (Auto) [place] # (Auto) Eos # (Auto) Baso # (Auto) WBC Differential Differential Comment ESR 68 H Sodium Potassium Chloride Carbon Dioxide Anion Gap BUN Creatinine Estimated GFR Random Glucose Lactic Acid Calcium - Imaging Impressions Foot X-Ray 05/15/18 13:46 CONCLUSION: No acute bony abnormality is seen. Questionable changes in the anterior heel fat pad. Foot MRI 05/15/18 21:58 CONCLUSION: 1. Subcutaneous swelling is noted throughout the right medial ankle and foot. No underlying subcutaneous abscess is noted. 2. Minimal nonspecific edema is noted involving the medial aspect of the talar dome consistent with possible bone bruise or chronic edema related to arthritic change. No definite underlying fracture is confirmed. 3. Moderate arthritic changes are noted involving the first metatarsophalangeal joint with subcortical changes of the first metatarsal head. Assessment and Plan - Assessment (1) Cellulitis of right foot Code(s): L03.115 - Cellulitis of right lower limb Status: Acute (2) Ulcer of right foot with fat layer exposed Code(s): L97.512 - Non-pressure chronic ulcer of other part of right foot with fat layer exposed Status: Acute (3) Surgical wound infection Code(s): T81.49XA - Infection following a procedure, other surgical site, initial encounter Status: Acute - Plan Educated patient again that continuing to work on her feet after this kind of surgery is destined for disaster, and could end in limb loss. Discussed smoking's effect on wound healing and encouraged to stop. Discussed she will need to remain on IV antibiotics and recommend PICC line strongly, or else I feel patient will be right back in the hospital with another infection. Nothing to culture and no abscess on MRI, therefore no surgical intervention at this time.
[2018-05-16 10:21] LABS: Baso % (Auto) 0.7 % (0.0-2.0); Eos # (Auto) 0.1 th/mm3 (0.0-0.4); Eos % (Auto) 4.1 % (0.0-4.0); Hematocrit 35.7 % (35.0-46.0); Lymph # (Auto) 0.9 th/mm3 (1.0-4.8); Mean Corpuscular HGB Conc 33.6 % (32.0-36.0); Mean Corpuscular Hemoglobin 28.3 pg (27.0-34.0); Mean Corpuscular Volume 84.2 fL (80.0-100.0); Mean Platelet Volume 7.5 fL (7.0-11.0); Mono # (Auto) 0.2 th/mm3 (0.0-0.9); Mono % (Auto) 7.2 % (0.0-8.0); Neut # (Auto) 1.5 th/mm3 (1.8-7.7); Platelet Count 146 th/mm3 (150-450); Red Blood Count 4.24 mil/mm3 (4.00-5.30); Red Cell Distribution Width 15.9 % (11.6-17.2); White Blood Count 2.7 th/mm3 (4.0-11.0)
[2018-05-16 10:52] LABS: Albumin 3.3 g/dL (3.4-5.0); Anion Gap 8 meq/L (5-15); Aspartate Aminotransferase 66 U/L (15-37); Blood Urea Nitrogen 17 mg/dL (7-18); Carbon Dioxide 24.9 meq/L (21.0-32.0); Chloride 108 meq/L (98-107); Glomerular Filtration Rate Greater Than 89 mL/min (>89); Glucose,Random 103 mg/dL (74-106); Potassium 4.2 meq/L (3.5-5.1); Sodium 141 meq/L (136-145)
[2018-05-16 10:53] LABS: Alanine Aminotransferase 75 U/L (10-53)
[2018-05-16 10:55] LABS: Alkaline Phosphatase 235 U/L (45-117); Total Protein 8.3 g/dL (6.4-8.2)
--- NOTE | 2018-05-16 11:27 | P.PNFP ---
Subjective Interval history: Patient reports that she had a rough night secondary to pain. She denies any fever, chills, nausea, vomiting. She still reports having some black stool. She reports that the seems to have decreased redness of her ankle. Discussed that she had a history of MRSA in her left leg about 5 years ago. Discussed the importance of nonweightbearing, not smoking. Discussed the possibility of modified work schedule that would make her nonweightbearing. Patient reports that she is cut back from 2 packs/day to 1/2 pack/day. Counseled extensively on smoking cessation. Results - Labs Result diagrams: 05/16/18 09:16 05/16/18 09:16 Abnormal lab results 05/15/18 05/15/18 05/15/18 Range/Units 13:53 13:53 13:53 WBC (4.0-11.0) th/mm3 Hct 34.2 L (35.0-46.0) % Plt Count (150-450) th/mm3 [place] % (Auto) 9.4 H (0.0-8.0) % Eos % (Auto) (0.0-4.0) % Neut # (Auto) (1.8-7.7) th/mm3 Lymph # (Auto) (1.0-4.8) th/mm3 ESR 68 H (0-20) mm/hr Chloride 108 H (98-107) meq/L Estimated GFR 76 L (>89) mL/min Random Glucose 55 L (74-106) mg/dL AST (15-37) U/L ALT (10-53) U/L Alkaline Phosphatase (45-117) U/L Total Protein (6.4-8.2) g/dL Albumin (3.4-5.0) g/dL 05/16/18 05/16/18 05/16/18 Range/Units 09:16 09:16 09:16 WBC 2.7 L (4.0-11.0) th/mm3 Hct (35.0-46.0) % Plt Count 146 L (150-450) th/mm3 [place] % (Auto) (0.0-8.0) % Eos % (Auto) 4.1 H (0.0-4.0) % Neut # (Auto) 1.5 L (1.8-7.7) th/mm3 Lymph # (Auto) 0.9 L (1.0-4.8) th/mm3 ESR 59 H (0-20) mm/hr Chloride 108 H (98-107) meq/L Estimated GFR (>89) mL/min Random Glucose (74-106) mg/dL AST 66 H (15-37) U/L ALT 75 H (10-53) U/L Alkaline Phosphatase 235 H (45-117) U/L Total Protein 8.3 H (6.4-8.2) g/dL Albumin 3.3 L (3.4-5.0) g/dL Short CBC 05/15/18 05/16/18 Range/Units 13:53 09:16 WBC 4.0 2.7 L (4.0-11.0) th/mm3 Hgb 12.1 12.0 (11.6-15.3) gm/dL Hct 34.2 L 35.7 (35.0-46.0) % Plt Count 173 D 146 L (150-450) th/mm3 BMP 05/15/18 05/16/18 13:53 09:16 Sodium 143 141 Potassium 4.2 4.2 Chloride 108 H 108 H Carbon Dioxide 26.7 24.9 BUN 12 17 Creatinine 0.81 0.67 Calcium 8.5 9.0 Liver Function 05/16/18 Range/Units 09:16 Total Bilirubin 0.4 (0.2-1.0) mg/dL AST 66 H (15-37) U/L ALT 75 H (10-53) U/L Alkaline Phosphatase 235 H (45-117) U/L Albumin 3.3 L (3.4-5.0) g/dL - Imaging Impressions Foot X-Ray 05/15/18 13:46 CONCLUSION: No acute bony abnormality is seen. Questionable changes in the anterior heel fat pad. Foot MRI 05/15/18 21:58 CONCLUSION: 1. Subcutaneous swelling is noted throughout the right medial ankle and foot. No underlying subcutaneous abscess is noted. 2. Minimal nonspecific edema is noted involving the medial aspect of the talar dome consistent with possible bone bruise or chronic edema related to arthritic change. No definite underlying fracture is confirmed. 3. Moderate arthritic changes are noted involving the first metatarsophalangeal joint with subcortical changes of the first metatarsal head. Physical Exam Vital signs: Vital Signs 05/15/18 13:20 05/15/18 13:56 05/15/18 20:00 Temperature 98.6 F 98 F Pulse Rate 95 H 95 H 91 H Respiratory Rate 16 16 18 Blood Pressure 173/87 H 131/71 146/78 H Pulse Oximetry 100 99 98 05/16/18 00:00 05/16/18 04:00 05/16/18 08:00 Temperature 97.7 F 97.8 F 97.6 F Pulse Rate 86 77 80 Respiratory Rate 16 14 18 Blood Pressure 164/89 H 155/85 H 169/90 H Pulse Oximetry 99 99 98 Intake & Output 05/15/18 05/16/18 05/16/18 18:59 06:59 18:59 Intake Total 50 / 50 1005 / 1005 Balance 50 / 50 1005 / 1005 Weight 77.111 kg 82.9 kg Intake: IV 50 / 50 765 / 765 Cleocin 600 mg/NS Premix 600 mg 50 / 50 In 50 ml @ 100 mls/hr IV.SIG NOW [facility] Rx#:[id number] Vancomycin Inj 1,000 MG In NS 250 / 250 Inj 250 ML @ 250 mls/hr IV.SIG Q12H [facility] Rx#:[id number] Vancomycin Inj 1,500 MG In NS 515 / 515 Inj 500 ML @ 250 mls/hr IV.SIG ONCE ONE Rx#:[id number] Oral 240 / 240 Other: # Voids 2 Weight On Admission 84.1 kg Narrative: GENERAL: Well-nourished, well-developed patient. No acute distress. SKIN: Surgical wound bed on medial right ankle with erythema. Crusted over white/yellowish discharge overlying the wound bed. Area warm to the touch. No fluctuance or induration noted. No dehiscence of sutures. Area of erythema has decreased, which we know because it was demarcated with surgical pen. EYES: No scleral icterus. No injection or drainage. EOMI. HENT: Normocephalic. Atraumatic. MMM. NECK: Supple, trachea midline. No JVD or lymphadenopathy. CARDIOVASCULAR: Regular rate and rhythm without obvious murmurs, gallops, or rubs. RESPIRATORY: Breath sounds equal bilaterally. No accessory muscle use. CTAB. GASTROINTESTINAL: Abdomen nondistended. MUSCULOSKELETAL: No cyanosis or edema. Strength grossly WNL. 2+ pedal pulses. Motor and sensation intact. Less than 2-second capillary refill distal to injury. BACK: without obvious deformity. NEURO/PSYCH: Afocal. Awake, alert, and oriented x3. Assessment and Plan - Assessment (1) Surgical wound infection Code(s): T81.49XA - Infection following a procedure, other surgical site, initial encounter Status: Acute Plan: This patient is a 47-year-old woman with a history of squamous cell carcinoma status post excision 1 week ago, as well as previous MRSA infection 5 years ago on contralateral leg previously treated with clindamycin, who presents to the ED with a 3-day history of erythema, inflammation, and purulent drainage. On admission patient is afebrile, no leukocytosis, lactic acid 0.9, and with no indication of sepsis or systemic infection. -Continue vancomycin IV -blood cultures show NGTD -podiatry consult appreciated below: -Educated patient about nonweightbearing and not smoking -Continue IV antibiotics and recommend PICC line. No surgical intervention at this time. -Infectious disease consulted to help coordinate PICC line and continued IV antibiotics either at home or at infusion center -Pain control: [place] for pain 1-10, morphine for breakthrough pain, adding scheduled Toradol today -PT recommended front wheeled walker at home with no PT (2) Dark stools Code(s): R19.5 - Other fecal abnormalities Status: Acute Plan: Patient reports a 1 day history of almost black stools. Hemodynamically stable without anemia. - Follow up occult blood stool test - Trend H/H (3) Tobacco abuse Code(s): Z72.0 - Tobacco use Status: Acute Plan: Patient has history of cigarette abuse for over 33 years. Patient requested patch. -No Nicotine patch because of interference with wound healing (4) Nausea & vomiting Code(s): R11.2 - Nausea with vomiting, unspecified Status: Acute Plan: Patient reports 4 episodes of bilious nonbloody vomiting. -Zofran PRN (5) Chronic hepatitis C Code(s): B18.2 - Chronic viral hepatitis C Status: Acute Plan: Patient reports history of chronic hep C infection. -No action required at this time Fluids: Not indicated Electrolytes: Replete as needed Nutrition: Regular diet DVT prophylaxis: Not indicated - Assessment and Plan Discussed Condition With: Dr. Fournier
--- NOTE | 2018-05-16 11:35 | P.PNFP ---
Subjective Interval history: Patient seen on rounds this morning with medicine resident team. She continues to complain of pain in her right foot and ankle around the area of swelling. She does state that the redness and swelling have improved being on the antibiotics. She is requesting something stronger for pain as she states the morphine is not taking the pain away. She denies any fevers or chills. She denies any nausea or vomiting. She denies any chest pain or palpitations. Her biggest complaint at this time is pain and not being able to smoke In summary, this is a 47-year-old female presenting to the emergency department with a 3-day history of increased swelling, pain, and discharge from the right medial ankle following squamous cell carcinoma excision. She reports that she underwent a squamous cell carcinoma excision earlier this month with subsequent revision 3 days later that was complicated by a staph infection. She took oral antibiotics with clindamycin with improvement while she was on the antibiotic, however once the antibiotics were complete she noticed worsening pain, swelling , and redness in the ankle that became constant. She came into the emergency department for further evaluation PMHx: Chronic Hep C, squamous cell carcinoma Surgical HX:Radical hysterectomy due to cervical cancer (did not undergo chemo or radiation) , appendectomy at same time of hysterectomy in 2008, Cholecystomy in 2009, Squamous cell excisement in Apr 2018 Meds: None FamHx: Father at 72 CHF had [place] and stroke. Mom at 57 due to cirrhosis of the liver due to alcoholism. Allergies: Codeine makes her a little itchy Social: Lives with befriend hedy. Previously , now . Works for the de[employer] of [employer] in [facility]. No children. Smoked half a pack a day for 33 years. Does not drink, denies any drug use. Code: Full PCP: None Director Of Regulatory Affairs: Dr. Garcia Results - Labs Result diagrams: 05/16/18 09:16 05/16/18 09:16 Abnormal lab results 05/15/18 05/15/18 05/15/18 Range/Units 13:53 13:53 13:53 WBC (4.0-11.0) th/mm3 Hct 34.2 L (35.0-46.0) % Plt Count (150-450) th/mm3 [place] % (Auto) 9.4 H (0.0-8.0) % Eos % (Auto) (0.0-4.0) % Neut # (Auto) (1.8-7.7) th/mm3 Lymph # (Auto) (1.0-4.8) th/mm3 ESR 68 H (0-20) mm/hr Chloride 108 H (98-107) meq/L Estimated GFR 76 L (>89) mL/min Random Glucose 55 L (74-106) mg/dL AST (15-37) U/L ALT (10-53) U/L Alkaline Phosphatase (45-117) U/L Total Protein (6.4-8.2) g/dL Albumin (3.4-5.0) g/dL 05/16/18 05/16/18 05/16/18 Range/Units 09:16 09:16 09:16 WBC 2.7 L (4.0-11.0) th/mm3 Hct (35.0-46.0) % Plt Count 146 L (150-450) th/mm3 [place] % (Auto) (0.0-8.0) % Eos % (Auto) 4.1 H (0.0-4.0) % Neut # (Auto) 1.5 L (1.8-7.7) th/mm3 Lymph # (Auto) 0.9 L (1.0-4.8) th/mm3 ESR 59 H (0-20) mm/hr Chloride 108 H (98-107) meq/L Estimated GFR (>89) mL/min Random Glucose (74-106) mg/dL AST 66 H (15-37) U/L ALT 75 H (10-53) U/L Alkaline Phosphatase 235 H (45-117) U/L Total Protein 8.3 H (6.4-8.2) g/dL Albumin 3.3 L (3.4-5.0) g/dL Short CBC 05/15/18 05/16/18 Range/Units 13:53 09:16 WBC 4.0 2.7 L (4.0-11.0) th/mm3 Hgb 12.1 12.0 (11.6-15.3) gm/dL Hct 34.2 L 35.7 (35.0-46.0) % Plt Count 173 D 146 L (150-450) th/mm3 BMP 05/15/18 05/16/18 13:53 09:16 Sodium 143 141 Potassium 4.2 4.2 Chloride 108 H 108 H Carbon Dioxide 26.7 24.9 BUN 12 17 Creatinine 0.81 0.67 Calcium 8.5 9.0 Liver Function 05/16/18 Range/Units 09:16 Total Bilirubin 0.4 (0.2-1.0) mg/dL AST 66 H (15-37) U/L ALT 75 H (10-53) U/L Alkaline Phosphatase 235 H (45-117) U/L Albumin 3.3 L (3.4-5.0) g/dL - Imaging Impressions Foot X-Ray 05/15/18 13:46 CONCLUSION: No acute bony abnormality is seen. Questionable changes in the anterior heel fat pad. Foot MRI 05/15/18 21:58 CONCLUSION: 1. Subcutaneous swelling is noted throughout the right medial ankle and foot. No underlying subcutaneous abscess is noted. 2. Minimal nonspecific edema is noted involving the medial aspect of the talar dome consistent with possible bone bruise or chronic edema related to arthritic change. No definite underlying fracture is confirmed. 3. Moderate arthritic changes are noted involving the first metatarsophalangeal joint with subcortical changes of the first metatarsal head. Physical Exam Vital signs: Vital Signs 05/15/18 13:20 05/15/18 13:56 05/15/18 20:00 Temperature 98.6 F 98 F Pulse Rate 95 H 95 H 91 H Respiratory Rate 16 16 18 Blood Pressure 173/87 H 131/71 146/78 H Pulse Oximetry 100 99 98 05/16/18 00:00 05/16/18 04:00 05/16/18 08:00 Temperature 97.7 F 97.8 F 97.6 F Pulse Rate 86 77 80 Respiratory Rate 16 14 18 Blood Pressure 164/89 H 155/85 H 169/90 H Pulse Oximetry 99 99 98 Intake & Output 05/15/18 05/16/18 05/16/18 18:59 06:59 18:59 Intake Total 50 / 50 1005 / 1005 Balance 50 / 50 1005 / 1005 Weight 77.111 kg 82.9 kg Intake: IV 50 / 50 765 / 765 Cleocin 600 mg/NS Premix 600 mg 50 / 50 In 50 ml @ 100 mls/hr IV.SIG NOW [facility] Rx#:[id number] Vancomycin Inj 1,000 MG In NS 250 / 250 Inj 250 ML @ 250 mls/hr IV.SIG Q12H [facility] Rx#:[id number] Vancomycin Inj 1,500 MG In NS 515 / 515 Inj 500 ML @ 250 mls/hr IV.SIG ONCE ONE Rx#:[id number] Oral 240 / 240 Other: # Voids 2 Weight On Admission 84.1 kg Narrative: GENERAL: Well-nourished, well-developed patient. No acute distress. SKIN: Right medial ankle incision site intact with sutures in place, moderate erythema and swelling of the area, however improved from admission based on receding erythema from area of pen demarcation. No fluctuance or induration noticed. No dehiscence of sutures CARDIOVASCULAR: Regular rate and rhythm without obvious murmurs, gallops, or rubs. RESPIRATORY: Breath sounds equal bilaterally. No accessory muscle use. CTAB. GASTROINTESTINAL: Abdomen soft, non-tender, nondistended. BS WNL. NEURO/PSYCH: Awake, alert, and oriented x3 Assessment and Plan - Assessment (1) Surgical wound infection Code(s): T81.49XA - Infection following a procedure, other surgical site, initial encounter Status: Acute Plan: Postoperative infection plicated by patient continuing to work on her feet several hours a day as well as smoking IV antibiotics: Vancomycin 1 g IV 12 hours with vancomycin consult Podiatry recommends extended course of IV antibiotics that she is has already been treated once with oral antibiotics as outpatient -Infectious disease consult placed for evaluation of PICC placement and extended outpatient IV antibiotic treatment Blood cultures ordered and pending Wound cultures ordered, however there is no purulence or drainage ESR mildly elevated at 68 MRI of the foot shows subcutaneous swelling noted throughout the right medial ankle and foot without underlying subcutaneous abscess. Minimal nonspecific edema noted along the medial aspect of the talar dome consistent with possible bone bruise chronic edema related to arthritis. Moderate arthritic changes noted involving the first MTP joint with subcortical changes of the first metatarsal head (2) Dark stools Code(s): R19.5 - Other fecal abnormalities Status: Acute Plan: Patient reports a 1 day history of almost black stools. Hemodynamically stable without anemia. -Fecal occult blood test ordered and pending - Trend H/H (3) Tobacco abuse Code(s): Z72.0 - Tobacco use Status: Acute Plan: Patient has history of cigarette abuse for over 33 years. Counseled on tobacco cessation -Nicotine patches will be avoided due to nonhealing wound in the extremity (4) Nausea & vomiting Code(s): R11.2 - Nausea with vomiting, unspecified Status: Acute Plan: Patient reports 4 episodes of bilious nonbloody vomiting prior to arrival, has resolved with nausea medication -Zofran PRN (5) Chronic hepatitis C Code(s): B18.2 - Chronic viral hepatitis C Status: Acute Plan: Patient reports history of chronic hep C infection. -No action required at this time
[2018-05-16] MEDS: Ketorolac Inj 30 MG/ML (IVP) Vial IV.PUSH SCH ×2 (12:12→18:51)
[2018-05-16] MEDS ORDERED: Acetaminophen 325 MG Tablet PO PRN (17:19)
--- NOTE | 2018-05-16 17:19 | P.CONID ---
History of Present Illness Service: Infectious disease Consult date: 05/16/18 Requesting Physician: Oscar Fournier Reason for Consult: Evaluation and Mment of Rt foot cellulitis Primary Care Provider: No Primary Care Physician History of Present Illness: Ms. 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 This was diagnosed as squamous cell carcinoma. 3 days after this she had second surgery for further removal of the cancer. At this time she was told that she had methicillin sensitive staph aureus and was treated outpatient with clindamycin and reports having completed the entire course. Patient also reports being on Keflex and as outpatient. Patient goes on to report that she has a prior history of MRSA infections. A week after the second surgery she was supposed to follow-up with the surgeon but did not and decided to wait for her appointment on May 18. Subsequently she started having pain and discomfort at the incision site as well as a burning sensation just proximal to it. She also found blisters overlying the wound bed and experienced fevers with diaphoresis and chills. She also reported thick yellow-green discharge from the wound bed. Patient took [place] tablets for pain. She also experienced watery diarrhea and nonbilious vomiting. ID consult for evaluation and M'ment of Right foot cellulitis. PMHx: Chronic Hep C, squamous cell carcinoma Surgical HX:Radical hysterectomy due to cervical cancer (did not undergo chemo or radiation) , appendectomy at same time of hysterectomy in 2008, Cholecystomy in 2009, Squamous cell excision in Apr 2018 Meds: None FHx: Father at 72 CHF had [place] and stroke. Mom at 57 due to cirrhosis of the liver due to alcoholism. Review of Systems All other systems reviewed negative except as stated in HPI PMFSH - History History Provided By: Patient - Medical History Medical History: Medical History (Last Reviewed 05/16/18 @ 06:40 by Rubin Botello) Alcoholic cirrhosis HTN (hypertension) Hx of hysterectomy - Surgical History Surgical History: Surgical History (Last Reviewed 05/16/18 @ 06:40 by Rubin Botello) Hx of appendectomy Hx of cholecystectomy - Tobacco History Second Hand Smoke Exposure: Yes Tobacco Use In Past 30 Days: Yes Smoking Status: Current every day smoker Tobacco Type: Cigarettes - Alcohol History How Often Do You Have a Drink Containing Alcohol: Monthly or less - Substance Use History Substance History: No History of Abuse - Travel History Recent Travel in the [place] Within the Last 8 Weeks: No Recent Travel Out of the Country Within the Last 8 Weeks: No - Immunization History Tetanus Immunization: <5 Years Hx Influenza Vaccine This Season: No Medications and Allergies Active Medications: Active Medications Hydrocodone Bitart/Acetaminophen ([place] 10/325) 1 tab PO Q4H PRN PRN Reason: PAIN SCALE 6 TO 10 Last Admin: 05/16/18 16:05 Dose: 1 tab Hydrocodone Bitart/Acetaminophen ([place] 5/325) 1 tab PO Q4H PRN PRN Reason: PAIN SCALE 3 TO 5 Al Hydroxide/Mg Hydroxide (Milk Of Magnesia Liq) 30 ml PO Q12H PRN PRN Reason: Mild Constipation Bisacodyl (Dulcolax Supp) 10 mg RECTAL DAILY PRN PRN Reason: SEVERE CONSITIPATION Ibuprofen (Motrin) 400 mg PO Q6HR PRN PRN Reason: PAIN SCALE 1 TO 2 Ketorolac Tromethamine (Toradol Inj) 30 mg IV.PUSH Q6H [facility] Stop: 05/21/18 12:59 Last Admin: 05/16/18 12:12 Dose: 30 mg Lactobacillus Acidophilus (Lactinex Pkt) 1 gm PO TID [facility] Last Admin: 05/16/18 12:12 Dose: 1 gm Lactulose (Lactulose Liq) 30 ml PO DAILY PRN PRN Reason: SEVERE CONSITIPATION Linezolid (Zyvox) 600 mg PO Q12HR [facility] Miscellaneous Information ([facility] Ordered Lab Info) 1 each OTHER ONCE ONE Stop: 05/17/18 05:46 Morphine Sulfate (Morphine Inj) 4 mg IV.PUSH Q3H PRN PRN Reason: BREAKTHROUGH PAIN Last Admin: 05/16/18 13:43 Dose: 4 mg Naloxone HCl (Narcan Inj) 0.4 mg IV.PUSH UNSCH PRN PRN Reason: SEE LABEL COMMENTS Ondansetron HCl (Zofran Inj) 4 mg IV.PUSH Q6H PRN PRN Reason: NAUSEA OR VOMITING Last Admin: 05/16/18 16:05 Dose: 4 mg Patch Removal (Remove Old Patch) 1 each T-DERMAL DAILY [facility] Sennosides (Senokot) 17.2 mg PO Q12H PRN PRN Reason: Moderate Constipation Sodium Chloride (Ns Flush) 2 ml IV.FLUSH BID [facility] Last Admin: 05/16/18 09:20 Dose: 2 ml Sodium Chloride (Ns Flush) 2 ml IV.FLUSH PRN PRN PRN Reason: FLUSH AFTER USING IV ACCESS Allergies Allergy/AdvReac Type Severity Reaction Status Date / Time codeine AdvReac Severe itching Verified 04/25/18 08:09 Home Medications Medication Instructions Recorded Confirmed Type No Known Home Medications 04/25/18 05/15/18 History Exam Vital signs: Vital Signs 05/15/18 20:00 05/16/18 00:00 05/16/18 04:00 Temperature 98 F 97.7 F 97.8 F Pulse Rate 91 H 86 77 Respiratory Rate 18 16 14 Blood Pressure 146/78 H 164/89 H 155/85 H Pulse Oximetry 98 99 99 05/16/18 08:00 05/16/18 12:00 Temperature 97.6 F 97.3 F L Pulse Rate 80 82 Respiratory Rate 18 18 Blood Pressure 169/90 H 135/89 Pulse Oximetry 98 98 Intake & Output 05/15/18 05/16/18 05/16/18 18:59 06:59 18:59 Intake Total 50 / 50 1005 / 1005 Balance 50 / 50 1005 / 1005 Weight 77.111 kg 82.9 kg Intake: IV 50 / 50 765 / 765 Cleocin 600 mg/NS Premix 600 mg 50 / 50 In 50 ml @ 100 mls/hr IV.SIG NOW [facility] Rx#:[id number] Vancomycin Inj 1,000 MG In NS 250 / 250 Inj 250 ML @ 250 mls/hr IV.SIG Q12H [facility] Rx#:[id number] Vancomycin Inj 1,500 MG In NS 515 / 515 Inj 500 ML @ 250 mls/hr IV.SIG ONCE ONE Rx#:[id number] Oral 240 / 240 Other: # Voids 2 Weight On Admission 84.1 kg Narrative: GENERAL: Well-nourished well-developed, not in acute distress SKIN: Cool and dry, no generalized rash HEAD: Atraumatic. Normocephalic. No temporal or scalp tenderness. EYES: Pupils equal round and reactive. Scleral icterus. No injection or drainage. No petechia ENT: Nothing abnormal detected NECK: Trachea midline. Supple, nontender, no meningeal signs. CARDIOVASCULAR: HS audible. RESPIRATORY: Clear to auscultation bilaterally. GASTROINTESTINAL: Abdomen soft nontender. MUSCULOSKELETAL: Right LE with sutures in place at ankle level. There is an ink marking and the area of erythema seems to have regressed some. But the center portion where the sutures seems to be peaking with yellow discoloration in places ? early abscess. NEUROLOGICAL: Alert oriented 3. Nonfocal. Psych cooperative IV line sites ok. Results - Labs CBC & Chem 7: 05/16/18 09:16 05/16/18 09:16 Labs: Laboratory Results - last 24 hr 05/15/18 05/16/18 05/16/18 13:53 09:16 09:16 WBC 2.7 L RBC 4.24 Hgb 12.0 Hct 35.7 MCV 84.2 MCH 28.3 MCHC 33.6 RDW 15.9 Plt Count 146 L MPV 7.5 Neut % (Auto) 55.0 Lymph % (Auto) 33.0 [place] % (Auto) 7.2 Eos % (Auto) 4.1 H Baso % (Auto) 0.7 Neut # (Auto) 1.5 L Lymph # (Auto) 0.9 L [place] # (Auto) 0.2 Eos # (Auto) 0.1 Baso # (Auto) 0.0 WBC Differential . Differential Comment Auto diff final ESR 68 H Sodium 141 Potassium 4.2 Chloride 108 H Carbon Dioxide 24.9 Anion Gap 8 BUN 17 Creatinine 0.67 Estimated GFR Greater than 89 Random Glucose 103 Calcium 9.0 Total Bilirubin 0.4 AST 66 H ALT 75 H Alkaline Phosphatase 235 H Total Protein 8.3 H Albumin 3.3 L 05/16/18 09:16 WBC RBC Hgb Hct MCV MCH MCHC RDW Plt Count MPV Neut % (Auto) Lymph % (Auto) [place] % (Auto) Eos % (Auto) Baso % (Auto) Neut # (Auto) Lymph # (Auto) [place] # (Auto) Eos # (Auto) Baso # (Auto) WBC Differential Differential Comment ESR 59 H Sodium Potassium Chloride Carbon Dioxide Anion Gap BUN Creatinine Estimated GFR Random Glucose Calcium Total Bilirubin AST ALT Alkaline Phosphatase Total Protein Albumin - Imaging Impressions Foot MRI 05/15/18 21:58 CONCLUSION: 1. Subcutaneous swelling is noted throughout the right medial ankle and foot. No underlying subcutaneous abscess is noted. 2. Minimal nonspecific edema is noted involving the medial aspect of the talar dome consistent with possible bone bruise or chronic edema related to arthritic change. No definite underlying fracture is confirmed. 3. Moderate arthritic changes are noted involving the first metatarsophalangeal joint with subcortical changes of the first metatarsal head. Assessment and Plan - Plan Right foot cellulitis possible abscess. Recent surgeries for excision of sq cell Ca. H/o Hepatitis C Smoking Recs: DC vanco IV Start oral zyvox Observe clinically for worsening infection. Call ID and Podiatry if any further worsening noted. May need drainage of abscess if evolves further. Will follow next on 05/18/2018 and decide if ready for discharge or needs surgery. efrem topete RN and pt.
[2018-05-16] MEDS: Linezolid 600 MG Tablet PO SCH (20:13)
[2018-05-16 21:59] LABS: Hepatitis A IgM Antibody Nonreactive (Nonreactive)
[2018-05-16 22:00] LABS: Hepatitits B Surface Antigen Nonreactive (Nonreactive)
[2018-05-17] MEDS: Ketorolac Inj 30 MG/ML (IVP) Vial IV.PUSH SCH ×4 (00:15→18:14)
[2018-05-17] MEDS: Morphine Inj 4 MG/ML Vial IV.PUSH PRN ×6 (02:16→22:38)
[2018-05-17] MEDS ORDERED: Pharmacy Ordered Lab Info OTHER ONE (05:45)
[2018-05-17 05:48] LABS: Baso % (Auto) 0.7 % (0.0-2.0); Eos # (Auto) 0.2 th/mm3 (0.0-0.4); Eos % (Auto) 5.1 % (0.0-4.0); Hematocrit 34.1 % (35.0-46.0); Hemoglobin 11.4 gm/dL (11.6-15.3); Lymph # (Auto) 1.2 th/mm3 (1.0-4.8); Lymph % (Auto) 39.6 % (9.0-44.0); Mean Corpuscular HGB Conc 33.5 % (32.0-36.0); Mean Corpuscular Hemoglobin 28.3 pg (27.0-34.0); Mean Corpuscular Volume 84.3 fL (80.0-100.0); Mean Platelet Volume 7.4 fL (7.0-11.0); Mono # (Auto) 0.2 th/mm3 (0.0-0.9); Mono % (Auto) 7.5 % (0.0-8.0); Neut # (Auto) 1.4 th/mm3 (1.8-7.7); Neut % (Auto) 47.1 % (16.0-70.0); Platelet Count 165 th/mm3 (150-450); Red Blood Count 4.04 mil/mm3 (4.00-5.30); Red Cell Distribution Width 15.7 % (11.6-17.2)
[2018-05-17 06:11] LABS: Calcium 8.7 mg/dL (8.5-10.1); Carbon Dioxide 27.2 meq/L (21.0-32.0); Potassium 4.3 meq/L (3.5-5.1)
[2018-05-17] MEDS: Linezolid 600 MG Tablet PO SCH ×2 (08:04→20:51)
--- NOTE | 2018-05-17 09:41 | P.PNFP ---
Subjective Interval history: Patient seen at bedside this morning. She reports continued pain around the ankle described as stabbing and as 7/10 which she reports is not very much change from admission. Although she does feel pain she reports that the current pain medication is working does not want to change at this time. Plan to continue treatment with linezolid and reevaluation tomorrow was also discussed. Patient denies any chest pain, abdominal pain, shortness of breath, nausea, vomiting, fevers or chills. Patient had no further questions and thanked us for our care. <Andre Torres - 05/17/18 09:41> Results - Labs Result diagrams: 05/17/18 04:13 05/17/18 04:13 <Oscar Fournier - 05/17/18 14:41> Abnormal lab results 05/16/18 05/17/18 05/17/18 Range/Units 19:19 04:13 04:13 WBC 3.0 L (4.0-11.0) th/mm3 Hgb 11.4 L (11.6-15.3) gm/dL Hct 34.1 L (35.0-46.0) % Eos % (Auto) 5.1 H (0.0-4.0) % Neut # (Auto) 1.4 L (1.8-7.7) th/mm3 BUN 25 H (7-18) mg/dL Estimated GFR 74 L (>89) mL/min Hep C IgG Ab Reactive H (Nonreactive) Short CBC 05/17/18 Range/Units 04:13 WBC 3.0 L (4.0-11.0) th/mm3 Hgb 11.4 L (11.6-15.3) gm/dL Hct 34.1 L (35.0-46.0) % Plt Count 165 (150-450) th/mm3 BMP 05/17/18 04:13 Sodium 140 Potassium 4.3 Chloride 106 Carbon Dioxide 27.2 BUN 25 H Creatinine 0.83 Calcium 8.7 <Oscar Fournier - 05/17/18 14:41> Abnormal lab results 05/16/18 05/16/18 05/16/18 Range/Units 09:16 09:16 09:16 WBC 2.7 L (4.0-11.0) th/mm3 Hgb (11.6-15.3) gm/dL Hct (35.0-46.0) % Plt Count 146 L (150-450) th/mm3 Eos % (Auto) 4.1 H (0.0-4.0) % Neut # (Auto) 1.5 L (1.8-7.7) th/mm3 Lymph # (Auto) 0.9 L (1.0-4.8) th/mm3 ESR 59 H (0-20) mm/hr Chloride 108 H (98-107) meq/L BUN (7-18) mg/dL Estimated GFR (>89) mL/min AST 66 H (15-37) U/L ALT 75 H (10-53) U/L Alkaline Phosphatase 235 H (45-117) U/L Total Protein 8.3 H (6.4-8.2) g/dL Albumin 3.3 L (3.4-5.0) g/dL Hep C IgG Ab (Nonreactive) 05/16/18 05/17/18 05/17/18 Range/Units 19:19 04:13 04:13 WBC 3.0 L (4.0-11.0) th/mm3 Hgb 11.4 L (11.6-15.3) gm/dL Hct 34.1 L (35.0-46.0) % Plt Count (150-450) th/mm3 Eos % (Auto) 5.1 H (0.0-4.0) % Neut # (Auto) 1.4 L (1.8-7.7) th/mm3 Lymph # (Auto) (1.0-4.8) th/mm3 ESR (0-20) mm/hr Chloride (98-107) meq/L BUN 25 H (7-18) mg/dL Estimated GFR 74 L (>89) mL/min AST (15-37) U/L ALT (10-53) U/L Alkaline Phosphatase (45-117) U/L Total Protein (6.4-8.2) g/dL Albumin (3.4-5.0) g/dL Hep C IgG Ab Reactive H (Nonreactive) Short CBC 05/16/18 05/17/18 Range/Units 09:16 04:13 WBC 2.7 L 3.0 L (4.0-11.0) th/mm3 Hgb 12.0 11.4 L (11.6-15.3) gm/dL Hct 35.7 34.1 L (35.0-46.0) % Plt Count 146 L 165 (150-450) th/mm3 BMP 05/16/18 05/17/18 09:16 04:13 Sodium 141 140 Potassium 4.2 4.3 Chloride 108 H 106 Carbon Dioxide 24.9 27.2 BUN 17 25 H Creatinine 0.67 0.83 Calcium 9.0 8.7 Liver Function 05/16/18 Range/Units 09:16 Total Bilirubin 0.4 (0.2-1.0) mg/dL AST 66 H (15-37) U/L ALT 75 H (10-53) U/L Alkaline Phosphatase 235 H (45-117) U/L Albumin 3.3 L (3.4-5.0) g/dL <Andre Torres - 05/17/18 09:41> Physical Exam Vital signs: Vital Signs 05/16/18 16:00 05/16/18 20:00 05/17/18 00:00 Temperature 97.1 F L 97.9 F 97.7 F Pulse Rate 82 85 89 Respiratory Rate 18 18 16 Blood Pressure 143/83 H 160/98 H 160/68 H Pulse Oximetry 100 97 97 05/17/18 04:00 05/17/18 08:00 05/17/18 12:00 Temperature 97.9 F 98.0 F Pulse Rate 79 83 80 Respiratory Rate 17 18 18 Blood Pressure 155/86 H 138/92 H 125/93 H Pulse Oximetry 99 96 98 Intake & Output 05/16/18 05/17/18 05/17/18 18:59 06:59 18:59 Intake Total 680 / 680 Balance 680 / 680 Weight 83.3 kg Intake: Oral 680 / 680 Other: # Voids 7 6 Date of Last Bowel Movement 05/16/18 # Bowel Movements 1 <Oscar Fournier - 05/17/18 14:41> Vital Signs 05/16/18 12:00 05/16/18 16:00 05/16/18 20:00 Temperature 97.3 F L 97.1 F L 97.9 F Pulse Rate 82 82 85 Respiratory Rate 18 18 18 Blood Pressure 135/89 143/83 H 160/98 H Pulse Oximetry 98 100 97 05/17/18 00:00 05/17/18 04:00 05/17/18 08:00 Temperature 97.7 F 97.9 F Pulse Rate 89 79 83 Respiratory Rate 16 17 18 Blood Pressure 160/68 H 155/86 H 138/92 H Pulse Oximetry 97 99 96 Intake & Output 05/16/18 05/17/18 05/17/18 18:59 06:59 18:59 Intake Total 680 / 680 Balance 680 / 680 Weight 83.3 kg Intake: Oral 680 / 680 Other: # Voids 7 6 Date of Last Bowel Movement 05/16/18 # Bowel Movements 1 <Andre Torres - 05/17/18 09:41> Narrative: ENERAL: Well-nourished, well-developed patient. No acute distress. SKIN: Surgical wound bed on medial right ankle with erythema that has regressed since demarcation at admission but grossly unchanged from exam yesterday. Crusted over white/yellowish discharge overlying the wound bed. Small area approx 1X1 mls of possible new discharge noted but no enough to sample. Area warm to the touch. No fluctuance or induration noted. No dehiscence of sutures. EYES: No scleral icterus. No injection or drainage. PERRLA. EOMI. HENT: Normocephalic. Atraumatic. MMM. OP Benign. NECK: Supple, trachea midline. No JVD or lymphadenopathy. CARDIOVASCULAR: Regular rate and rhythm without obvious murmurs, gallops, or rubs. RESPIRATORY: Breath sounds equal bilaterally. No accessory muscle use. CTAB. GASTROINTESTINAL: Abdomen soft, non-tender, nondistended. BS WNL. MUSCULOSKELETAL: No cyanosis or edema. Strength grossly WNL. BACK: Nontender without obvious deformity. No CVA tenderness. NEURO/PSYCH: Afocal. Awake, alert, and oriented x3. <Andre Torres - 05/17/18 09:44> Assessment and Plan - Assessment (1) Surgical wound infection Code(s): T81.49XA - Infection following a procedure, other surgical site, initial encounter Status: Acute (2) Tobacco abuse Code(s): Z72.0 - Tobacco use Status: Acute (3) Dark stools Code(s): R19.5 - Other fecal abnormalities Status: Resolved (4) Nausea & vomiting Code(s): R11.2 - Nausea with vomiting, unspecified Status: Resolved (5) Chronic hepatitis C Code(s): B18.2 - Chronic viral hepatitis C Status: Acute <Oscar Fournier - 05/17/18 14:41> (1) Surgical wound infection Code(s): T81.49XA - Infection following a procedure, other surgical site, initial encounter Status: Acute Plan: Postoperative infection plicated by patient continuing to work on her feet several hours a day as well as smoking Plan: IV antibiotics: -Continue linezolid 600 p.o. every 12 (05/16) -ID on board -Blood cultures 05/15 NGTD -Wound cultures ordered, however there is no purulence or drainage -PICC line placed after 24hours of negative blood cultures -Patient will be reevaluated for abscess formation on 05/18 Hospital course: -MRI of the foot shows subcutaneous swelling noted throughout the right medial ankle and foot without underlying subcutaneous abscess. Minimal nonspecific edema noted along the medial aspect of the talar dome consistent with possible bone bruise chronic edema related to arthritis. Moderate arthritic changes noted involving the first MTP joint with subcortical changes of the first metatarsal head - Vancomycin (05/15-05/16) -Linezolid (05/16) (2) Tobacco abuse Code(s): Z72.0 - Tobacco use Status: Acute Plan: Patient has history of cigarette abuse for over 33 years. Counseled on tobacco cessation -Nicotine patches will be avoided due to nonhealing wound in the extremity (3) Dark stools Code(s): R19.5 - Other fecal abnormalities Status: Resolved Plan: Patient reports a 1 day history of almost black stools. Hemodynamically stable without anemia. Patient no longer endorsing dark stools. - Fecal occult blood test ordered but uncollected. - Trend H/H (4) Nausea & vomiting Code(s): R11.2 - Nausea with vomiting, unspecified Status: Resolved Plan: Patient reports 4 episodes of bilious nonbloody vomiting prior to arrival, has resolved with nausea medication -Zofran PRN (5) Chronic hepatitis C Code(s): B18.2 - Chronic viral hepatitis C Status: Acute Plan: Patient reports history of chronic hep C infection. -No action required at this time <Andre Torres - 05/17/18 11:08> - Attending Attestation Patient examined independently of resident physicians on 05/17/18 I personally reviewed daily updates with the patient and answered all questions I have read the above note by the resident physicians and agree with the assessment/plan as discussed with me I was involved in all medical decision making for this patient Oscar Fournier MD <Oscar Fournier - 05/17/18 14:41>
[2018-05-18] MEDS: Ketorolac Inj 30 MG/ML (IVP) Vial IV.PUSH SCH ×4 (01:13→18:26)
[2018-05-18] MEDS: Morphine Inj 4 MG/ML Vial IV.PUSH PRN ×5 (03:03→23:16)
[2018-05-18 06:03] LABS: Baso % (Auto) 0.5 % (0.0-2.0); Eos # (Auto) 0.1 th/mm3 (0.0-0.4); Eos % (Auto) 3.9 % (0.0-4.0); Hematocrit 30.3 % (35.0-46.0); Hemoglobin 10.2 gm/dL (11.6-15.3); Lymph # (Auto) 1.2 th/mm3 (1.0-4.8); Lymph % (Auto) 36.3 % (9.0-44.0); Mean Corpuscular HGB Conc 33.6 % (32.0-36.0); Mean Corpuscular Hemoglobin 28.4 pg (27.0-34.0); Mean Corpuscular Volume 84.4 fL (80.0-100.0); Mean Platelet Volume 7.4 fL (7.0-11.0); Mono # (Auto) 0.4 th/mm3 (0.0-0.9); Neut # (Auto) 1.6 th/mm3 (1.8-7.7); Neut % (Auto) 48.3 % (16.0-70.0); Platelet Count 126 th/mm3 (150-450); Red Blood Count 3.59 mil/mm3 (4.00-5.30); Red Cell Distribution Width 15.8 % (11.6-17.2); White Blood Count 3.2 th/mm3 (4.0-11.0)
[2018-05-18] MEDS ORDERED: hydroCHLOROthiazide 25 MG Tablet PO SCH (09:00)
[2018-05-18] MEDS: Linezolid 600 MG Tablet PO SCH ×2 (09:32→21:14)
--- NOTE | 2018-05-18 10:25 | P.PNFP ---
Subjective Interval history: Patient seen at bedside this morning. Patient currently says she feels well and has no concerns at this time. She does report that her foot continues to burn but in her opinion erythema has greatly receded and the wound overall looks much better to her. Plan to have her reassessed today for abscess formation was discussed as well as the outpatient Zyvox and its cost. After speaking with case management, they report the patient's current insurance will cover her outpatient medication. Patient had no further questions or concerns and thanked us for our care. <Andre Torres - 05/18/18 10:25> Results - Labs Result diagrams: 05/18/18 03:43 05/17/18 04:13 <Oscar Fournier - 05/18/18 21:33> Abnormal lab results 05/18/18 Range/Units 03:43 WBC 3.2 L (4.0-11.0) th/mm3 RBC 3.59 L (4.00-5.30) mil/mm3 Hgb 10.2 L (11.6-15.3) gm/dL Hct 30.3 L (35.0-46.0) % Plt Count 126 L (150-450) th/mm3 [place] % (Auto) 11.0 H (0.0-8.0) % Neut # (Auto) 1.6 L (1.8-7.7) th/mm3 Short CBC 05/18/18 Range/Units 03:43 WBC 3.2 L (4.0-11.0) th/mm3 Hgb 10.2 L (11.6-15.3) gm/dL Hct 30.3 L (35.0-46.0) % Plt Count 126 L (150-450) th/mm3 <Oscar Fournier - 05/18/18 21:33> Abnormal lab results 05/18/18 Range/Units 03:43 WBC 3.2 L (4.0-11.0) th/mm3 RBC 3.59 L (4.00-5.30) mil/mm3 Hgb 10.2 L (11.6-15.3) gm/dL Hct 30.3 L (35.0-46.0) % Plt Count 126 L (150-450) th/mm3 [place] % (Auto) 11.0 H (0.0-8.0) % Neut # (Auto) 1.6 L (1.8-7.7) th/mm3 Short CBC 05/18/18 Range/Units 03:43 WBC 3.2 L (4.0-11.0) th/mm3 Hgb 10.2 L (11.6-15.3) gm/dL Hct 30.3 L (35.0-46.0) % Plt Count 126 L (150-450) th/mm3 <Andre Torres - 05/18/18 10:25> Physical Exam Vital signs: Vital Signs 05/18/18 00:00 05/18/18 04:00 05/18/18 08:00 Temperature 97.3 F L 97.6 F 97.1 F L Pulse Rate 79 82 73 Respiratory Rate 20 20 18 Blood Pressure 156/77 H 135/63 106/59 L Pulse Oximetry 97 97 98 05/18/18 12:00 05/18/18 16:00 Temperature 97.6 F 97.7 F Pulse Rate 86 78 Respiratory Rate 18 18 Blood Pressure 149/70 H 145/72 H Pulse Oximetry 98 100 Intake & Output 05/18/18 05/18/18 05/19/18 06:59 18:59 06:59 Intake Total 960 / 960 Balance 960 / 960 Weight 86.3 kg Intake: Oral 960 / 960 Other: # Voids 5 Date of Last Bowel Movement 05/17/18 05/18/18 # Bowel Movements 2 <Oscar Fournier - 05/18/18 21:33> Vital Signs 05/17/18 12:00 05/17/18 16:00 05/17/18 20:00 Temperature 98.0 F 97.6 F 97.2 F L Pulse Rate 80 78 81 Respiratory Rate 18 18 20 Blood Pressure 125/93 H 118/78 157/74 H Pulse Oximetry 98 99 100 05/18/18 00:00 05/18/18 04:00 05/18/18 08:00 Temperature 97.3 F L 97.6 F 97.1 F L Pulse Rate 79 82 73 Respiratory Rate 20 20 18 Blood Pressure 156/77 H 135/63 106/59 L Pulse Oximetry 97 97 98 Intake & Output 05/17/18 05/18/18 05/18/18 18:59 06:59 18:59 Intake Total 680 / 680 Balance 680 / 680 Weight 86.3 kg Intake: Oral 680 / 680 Other: # Voids 8 Date of Last Bowel Movement 05/17/18 05/17/18 # Bowel Movements 1 <Andre Torres - 05/18/18 10:25> Narrative: GENERAL: Well-nourished, well-developed patient. No acute distress. SKIN: Surgical wound bed on medial right ankle with erythema that has regressed since demarcation at admission. Area of erythema measures 11 x 6.5 cm at its largest diameters. Area redemarcated with today's date. Crusted over white/ yellowish discharge overlying the wound bed. Area warm to the touch. No fluctuance or induration noted. No dehiscence of sutures. CARDIOVASCULAR: Regular rate and rhythm without obvious murmurs, gallops, or rubs. RESPIRATORY: Breath sounds equal bilaterally. No accessory muscle use. CTAB. GASTROINTESTINAL: Abdomen soft, non-tender, nondistended. BS WNL. MUSCULOSKELETAL: No cyanosis or edema. Strength grossly WNL. NEURO/PSYCH: Afocal. Awake, alert, and oriented x3. <Andre Torres - 05/18/18 10:25> Assessment and Plan - Assessment (1) Surgical wound infection Code(s): T81.49XA - Infection following a procedure, other surgical site, initial encounter Status: Acute (2) Tobacco abuse Code(s): Z72.0 - Tobacco use Status: Acute (3) Dark stools Code(s): R19.5 - Other fecal abnormalities Status: Resolved (4) Nausea & vomiting Code(s): R11.2 - Nausea with vomiting, unspecified Status: Resolved (5) Chronic hepatitis C Code(s): B18.2 - Chronic viral hepatitis C Status: Acute <Oscar Fournier - 05/18/18 21:33> (1) Surgical wound infection Code(s): T81.49XA - Infection following a procedure, other surgical site, initial encounter Status: Acute Plan: Postoperative infection complicated by patient continuing to work on her feet several hours a day as well as smoking. Plan: -Continue linezolid 600 p.o. every 12 (05/16) -ID on board, Patient to be discharged on oral Zyvox for an additional 6 days for a total antibiotic course of 10 days pending ID approval and recs -Blood cultures 05/15 NGTD -Patient to be reevaluated for abscess formation on 05/18 Hospital course: -MRI of the foot shows subcutaneous swelling noted throughout the right medial ankle and foot without underlying subcutaneous abscess. Minimal nonspecific edema noted along the medial aspect of the talar dome consistent with possible bone bruise chronic edema related to arthritis. Moderate arthritic changes noted involving the first MTP joint with subcortical changes of the first metatarsal head - Vancomycin (05/15-05/16) -Linezolid (05/16) (2) Tobacco abuse Code(s): Z72.0 - Tobacco use Status: Acute Plan: Patient has history of cigarette abuse for over 33 years. Counseled on tobacco cessation -Nicotine patches will be avoided due to nonhealing wound in the extremity (3) Dark stools Code(s): R19.5 - Other fecal abnormalities Status: Resolved Plan: Patient reports a 1 day history of almost black stools. Hemodynamically stable without anemia. Patient no longer endorsing dark stools. - Trend H/H (4) Nausea & vomiting Code(s): R11.2 - Nausea with vomiting, unspecified Status: Resolved Plan: Patient reports 4 episodes of bilious nonbloody vomiting prior to arrival, has resolved with nausea medication -Zofran PRN (5) Chronic hepatitis C Code(s): B18.2 - Chronic viral hepatitis C Status: Acute Plan: Patient reports history of chronic hep C infection. -No action required at this time <Andre Torres - 05/18/18 11:41> - Attending Attestation Pt. examined independently from resident physicians today on medicine rounds I have read the above note and agree with the assessment/plan as discussed with me I was involved in all medical decision making for this patient Oscar Fournier MD <Oscar Fournier - 05/18/18 21:33>
--- NOTE | 2018-05-18 15:29 | P.PNPOD ---
Physical Exam Vital signs: Vital Signs 05/17/18 16:00 05/17/18 20:00 05/18/18 00:00 Temperature 97.6 F 97.2 F L 97.3 F L Pulse Rate 78 81 79 Respiratory Rate 18 20 20 Blood Pressure 118/78 157/74 H 156/77 H Pulse Oximetry 99 100 97 05/18/18 04:00 05/18/18 08:00 05/18/18 12:00 Temperature 97.6 F 97.1 F L 97.6 F Pulse Rate 82 73 86 Respiratory Rate 20 18 18 Blood Pressure 135/63 106/59 L 149/70 H Pulse Oximetry 97 98 98 Intake & Output 05/17/18 05/18/18 05/18/18 18:59 06:59 18:59 Intake Total 680 / 680 Balance 680 / 680 Weight 86.3 kg Intake: Oral 680 / 680 Other: # Voids 8 Date of Last Bowel Movement 05/17/18 05/17/18 05/18/18 # Bowel Movements 1 Medications and Allergies Active Medications: Active Medications Acetaminophen (Tylenol) 650 mg PO Q4H PRN PRN Reason: Acute Pain 1-2 Hydrocodone Bitart/Acetaminophen ([place] 10/325) 1 tab PO Q4H PRN PRN Reason: PAIN SCALE 6 TO 10 Last Admin: 05/18/18 14:00 Dose: 1 tab Hydrocodone Bitart/Acetaminophen ([place] 5/325) 1 tab PO Q4H PRN PRN Reason: PAIN SCALE 3 TO 5 Al Hydroxide/Mg Hydroxide (Milk Of Magnesia Liq) 30 ml PO Q12H PRN PRN Reason: Mild Constipation Bisacodyl (Dulcolax Supp) 10 mg RECTAL DAILY PRN PRN Reason: SEVERE CONSITIPATION Hydrochlorothiazide (Hydrodiuril) 25 mg PO DAILY [facility] Last Admin: 05/18/18 09:32 Dose: 25 mg Ibuprofen (Motrin) 400 mg PO Q6HR PRN PRN Reason: PAIN SCALE 1 TO 2 Ketorolac Tromethamine (Toradol Inj) 30 mg IV.PUSH Q6H [facility] Stop: 05/21/18 12:59 Last Admin: 05/18/18 13:59 Dose: 30 mg Lactobacillus Acidophilus (Lactinex Pkt) 1 gm PO TID [facility] Last Admin: 05/18/18 13:59 Dose: 1 gm Lactulose (Lactulose Liq) 30 ml PO DAILY PRN PRN Reason: SEVERE CONSITIPATION Linezolid (Zyvox) 600 mg PO Q12HR [facility] Last Admin: 05/18/18 09:32 Dose: 600 mg Morphine Sulfate (Morphine Inj) 4 mg IV.PUSH Q3H PRN PRN Reason: BREAKTHROUGH PAIN Last Admin: 05/18/18 11:22 Dose: 4 mg Naloxone HCl (Narcan Inj) 0.4 mg IV.PUSH UNSCH PRN PRN Reason: SEE LABEL COMMENTS Ondansetron HCl (Zofran Inj) 4 mg IV.PUSH Q6H PRN PRN Reason: NAUSEA OR VOMITING Last Admin: 05/17/18 16:08 Dose: 4 mg Patch Removal (Remove Old Patch) 1 each T-DERMAL DAILY [facility] Last Admin: 05/18/18 09:32 Dose: Not Given Sennosides (Senokot) 17.2 mg PO Q12H PRN PRN Reason: Moderate Constipation Sodium Chloride (Ns Flush) 2 ml IV.FLUSH BID [facility] Last Admin: 05/18/18 09:32 Dose: 2 ml Sodium Chloride (Ns Flush) 2 ml IV.FLUSH PRN PRN PRN Reason: FLUSH AFTER USING IV ACCESS Allergies Allergy/AdvReac Type Severity Reaction Status Date / Time codeine AdvReac Severe itching Verified 04/25/18 08:09 Home Medications Medication Instructions Recorded Confirmed Type No Known Home Medications 04/25/18 05/15/18 History Results - Labs CBC & Chem 7: 05/18/18 03:43 05/17/18 04:13 Laboratory Results - last 24 hr 05/18/18 03:43 WBC 3.2 L RBC 3.59 L Hgb 10.2 L Hct 30.3 L MCV 84.4 MCH 28.4 MCHC 33.6 RDW 15.8 Plt Count 126 L MPV 7.4 Neut % (Auto) 48.3 Lymph % (Auto) 36.3 [place] % (Auto) 11.0 H Eos % (Auto) 3.9 Baso % (Auto) 0.5 Neut # (Auto) 1.6 L Lymph # (Auto) 1.2 [place] # (Auto) 0.4 Eos # (Auto) 0.1 Baso # (Auto) 0.0 WBC Differential . Differential Comment Auto diff final Microbiology 05/15/18 13:53 Blood - Peripheral Aerobic Blood Culture - Preliminary No growth in 3 days 05/15/18 13:53 Blood - Peripheral Anaerobic Blood Culture - Preliminary No growth in 3 days 05/15/18 13:59 Blood - Peripheral Aerobic Blood Culture - Preliminary No growth in 3 days 05/15/18 13:59 Blood - Peripheral Anaerobic Blood Culture - Preliminary No growth in 3 days Assessment and Plan - Assessment (1) Cellulitis of right foot Code(s): L03.115 - Cellulitis of right lower limb Status: Acute (2) Ulcer of right foot with fat layer exposed Code(s): L97.512 - Non-pressure chronic ulcer of other part of right foot with fat layer exposed Status: Acute (3) Surgical wound infection Code(s): T81.49XA - Infection following a procedure, other surgical site, initial encounter Status: Acute - Plan Educated patient again that continuing to work on her feet after this kind of surgery is destined for disaster, and could end in limb loss. Discussed smoking's effect on wound healing and encouraged to stop. Do not feel patient is ready for discharge until erythema has receded.
--- NOTE | 2018-05-18 17:42 | P.PNID ---
Subjective Remarks: Ms. 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 This was diagnosed as squamous cell carcinoma. 3 days after this she had second surgery for further removal of the cancer. At this time she was told that she had methicillin sensitive staph aureus and was treated outpatient with clindamycin and reports having completed the entire course. Patient also reports being on Keflex and as outpatient. Patient goes on to report that she has a prior history of MRSA infections. A week after the second surgery she was supposed to follow-up with the surgeon but did not and decided to wait for her appointment on May 18. Subsequently she started having pain and discomfort at the incision site as well as a burning sensation just proximal to it. She also found blisters overlying the wound bed and experienced fevers with diaphoresis and chills. She also reported thick yellow-green discharge from the wound bed. Patient took [place] tablets for pain. She also experienced watery diarrhea and nonbilious vomiting. ID consult for evaluation and M'ment of Right foot cellulitis. PMHx: Chronic Hep C, squamous cell carcinoma Overnight events reviewed. No fever No rash No diarrhea Antibiotics: Zyvox oral Lines: Lines okay Past Medical History: Reviewed. Allergies/Adverse Reactions: Allergies codeine Adverse Reaction (Severe, Verified 04/25/18 08:09) itching Objective Vital Signs 05/17/18 20:00 05/18/18 00:00 05/18/18 04:00 Temperature 97.2 F L 97.3 F L 97.6 F Pulse Rate 81 79 82 Respiratory Rate 20 20 20 Blood Pressure 157/74 H 156/77 H 135/63 Pulse Oximetry 100 97 97 05/18/18 08:00 05/18/18 12:00 Temperature 97.1 F L 97.6 F Pulse Rate 73 86 Respiratory Rate 18 18 Blood Pressure 106/59 L 149/70 H Pulse Oximetry 98 98 Intake & Output 05/17/18 05/18/18 05/18/18 18:59 06:59 18:59 Intake Total 680 / 680 Balance 680 / 680 Weight 86.3 kg Intake: Oral 680 / 680 Other: # Voids 8 Date of Last Bowel Movement 05/17/18 05/17/18 05/18/18 # Bowel Movements 1 05/15/18 13:53 Blood - Peripheral Aerobic Blood Culture - Preliminary No growth in 3 days 05/15/18 13:53 Blood - Peripheral Anaerobic Blood Culture - Preliminary No growth in 3 days 05/15/18 13:59 Blood - Peripheral Aerobic Blood Culture - Preliminary No growth in 3 days 05/15/18 13:59 Blood - Peripheral Anaerobic Blood Culture - Preliminary No growth in 3 days Lab - Hematology Results 05/17/18 05/18/18 04:13 03:43 WBC 3.0 L 3.2 L RBC 4.04 3.59 L Hgb 11.4 L 10.2 L Hct 34.1 L 30.3 L MCV 84.3 84.4 MCH 28.3 28.4 MCHC 33.5 33.6 RDW 15.7 15.8 Plt Count 165 126 L MPV 7.4 7.4 Neut % (Auto) 47.1 48.3 Lymph % (Auto) 39.6 36.3 [place] % (Auto) 7.5 11.0 H Eos % (Auto) 5.1 H 3.9 Baso % (Auto) 0.7 0.5 Neut # (Auto) 1.4 L 1.6 L Lymph # (Auto) 1.2 1.2 Bre[place] # (Auto) 0.2 0.4 Eos # (Auto) 0.2 0.1 Baso # (Auto) 0.0 0.0 WBC Differential . . Differential Comment Auto diff final Auto diff final Lab - Chemistry Results 05/16/18 05/17/18 19:19 04:13 Sodium 140 Potassium 4.3 Chloride 106 Carbon Dioxide 27.2 Anion Gap 7 BUN 25 H Creatinine 0.83 Estimated GFR 74 L Random Glucose 104 Calcium 8.7 C-Reactive Protein Less than 0.29 Imaging: ITS Impressions Foot X-Ray 05/15/18 13:46 CONCLUSION: No acute bony abnormality is seen. Questionable changes in the anterior heel fat pad. Foot MRI 05/15/18 21:58 CONCLUSION: 1. Subcutaneous swelling is noted throughout the right medial ankle and foot. No underlying subcutaneous abscess is noted. 2. Minimal nonspecific edema is noted involving the medial aspect of the talar dome consistent with possible bone bruise or chronic edema related to arthritic change. No definite underlying fracture is confirmed. 3. Moderate arthritic changes are noted involving the first metatarsophalangeal joint with subcortical changes of the first metatarsal head. Physical Exam: GENERAL: Well-nourished well-developed, not in acute distress SKIN: Cool and dry, no generalized rash HEAD: Atraumatic. Normocephalic. No temporal or scalp tenderness. EYES: Pupils equal round and reactive. Scleral icterus. No injection or drainage. No petechia ENT: Nothing abnormal detected NECK: Trachea midline. Supple, nontender, no meningeal signs. CARDIOVASCULAR: HS audible. RESPIRATORY: Clear to auscultation bilaterally. GASTROINTESTINAL: Abdomen soft nontender. MUSCULOSKELETAL: Right LE with sutures in place at ankle level. There is an ink marking and the area of erythema seems to have regressed some. But the center portion where the sutures seems to be peaking with yellow discoloration in places ? early abscess. Area of erythema appears to be extending outside the margin of the marker. NEUROLOGICAL: Alert oriented 3. Nonfocal. Psych cooperative IV line sites ok. Assessment and Plan - Plan Right foot cellulitis possible abscess. Recent surgeries for excision of sq cell Ca. H/o Hepatitis C Smoking Recs: Continue oral zyvox Observe clinically for worsening infection. When in the patient's room patient had her right foot underneath her other thigh with pressure over. Discussed with patient to ensure that there is no pressure over the surgical site area as the skin this start the clinical findings and may possibly worsen the infection. efrem Hirsch Reviewed Dr. Garcia's note and agree with her to continue keeping her in the hospital at least for another day at which point I will follow-up and provide additional recommendations. This was discussed with the patient who agreed with our clinical judgment.
[2018-05-19] MEDS: Ketorolac Inj 30 MG/ML (IVP) Vial IV.PUSH SCH ×4 (00:11→18:14)
[2018-05-19] MEDS: Morphine Inj 4 MG/ML Vial IV.PUSH PRN ×5 (03:12→22:28)
[2018-05-19 07:44] LABS: Baso % (Auto) 0.4 % (0.0-2.0); Eos # (Auto) 0.1 th/mm3 (0.0-0.4); Eos % (Auto) 2.5 % (0.0-4.0); Hematocrit 29.1 % (35.0-46.0); Hemoglobin 9.8 gm/dL (11.6-15.3); Lymph % (Auto) 32.3 % (9.0-44.0); Mean Corpuscular HGB Conc 33.6 % (32.0-36.0); Mean Corpuscular Hemoglobin 28.2 pg (27.0-34.0); Mean Corpuscular Volume 83.8 fL (80.0-100.0); Mean Platelet Volume 7.4 fL (7.0-11.0); Mono # (Auto) 0.3 th/mm3 (0.0-0.9); Mono % (Auto) 10.6 % (0.0-8.0); Neut # (Auto) 1.7 th/mm3 (1.8-7.7); Neut % (Auto) 54.2 % (16.0-70.0); Platelet Count 99 th/mm3 (150-450); Red Blood Count 3.47 mil/mm3 (4.00-5.30); Red Cell Distribution Width 15.7 % (11.6-17.2); White Blood Count 3.1 th/mm3 (4.0-11.0)
[2018-05-19] MEDS: Linezolid 600 MG Tablet PO SCH ×2 (08:01→20:19)
[2018-05-19 08:38] LABS: Lymphocytes 23 % (9-44); Monocytes 7 % (0-8)
[2018-05-19 08:39] LABS: Ovalocytes 1+; Platelet Morphology Normal (Normal)
[2018-05-19] MEDS: hydroCHLOROthiazide 25 MG Tablet PO SCH (08:41)
--- NOTE | 2018-05-19 09:12 | P.PNFP ---
Subjective Interval history: Patient seen at bedside this morning. Patient reports getting rest overnight and feels better. She continues to feel burning sensation in her foot and experience some pain yesterday when she accidentally stepped on her foot. She denies any fevers, chills, nausea, vomiting, shortness of breath, or chest pain. Patient feels like the redness and swelling is improving in her foot. Current plan was discussed with patient who reported understanding and had no further questions. <Andre Torres - 05/19/18 10:44> Results - Labs Result diagrams: 05/19/18 06:48 05/19/18 08:55 <Oscar Fournier - 05/19/18 11:28> Abnormal lab results 05/19/18 05/19/18 Range/Units 06:48 08:55 WBC 3.1 L (4.0-11.0) th/mm3 RBC 3.47 L (4.00-5.30) mil/mm3 Hgb 9.8 L (11.6-15.3) gm/dL Hct 29.1 L (35.0-46.0) % Plt Count 99 L (150-450) th/mm3 [place] % (Auto) 10.6 H (0.0-8.0) % Neut # (Auto) 1.7 L (1.8-7.7) th/mm3 Band Neuts % (Manual) 10 H (0-6) % Platelet Estimate Low L (Normal) Basophilic Stippling Faint H (None) Ovalocytes 1+ H (None) Anion Gap 4 L (5-15) meq/L BUN 31 H (7-18) mg/dL Estimated GFR 87 L (>89) mL/min Short CBC 05/19/18 Range/Units 06:48 WBC 3.1 L (4.0-11.0) th/mm3 Hgb 9.8 L (11.6-15.3) gm/dL Hct 29.1 L (35.0-46.0) % Plt Count 99 L (150-450) th/mm3 [facility] 05/19/18 08:55 Sodium 139 Potassium 4.5 Chloride 105 Carbon Dioxide 30.0 BUN 31 H Creatinine 0.72 Calcium 8.8 <Oscar Fournier - 05/19/18 11:28> Abnormal lab results 05/19/18 Range/Units 06:48 WBC 3.1 L (4.0-11.0) th/mm3 RBC 3.47 L (4.00-5.30) mil/mm3 Hgb 9.8 L (11.6-15.3) gm/dL Hct 29.1 L (35.0-46.0) % Plt Count 99 L (150-450) th/mm3 [place] % (Auto) 10.6 H (0.0-8.0) % Neut # (Auto) 1.7 L (1.8-7.7) th/mm3 Band Neuts % (Manual) 10 H (0-6) % Platelet Estimate Low L (Normal) Basophilic Stippling Faint H (None) Ovalocytes 1+ H (None) Short CBC 05/19/18 Range/Units 06:48 WBC 3.1 L (4.0-11.0) th/mm3 Hgb 9.8 L (11.6-15.3) gm/dL Hct 29.1 L (35.0-46.0) % Plt Count 99 L (150-450) th/mm3 <Andre Torres - 05/19/18 09:12> Physical Exam Vital signs: Vital Signs 05/18/18 12:00 05/18/18 16:00 05/18/18 20:00 Temperature 97.6 F 97.7 F 97.2 F L Pulse Rate 86 78 83 Respiratory Rate 18 18 20 Blood Pressure 149/70 H 145/72 H 166/85 H Pulse Oximetry 98 100 100 05/19/18 00:00 05/19/18 04:00 05/19/18 08:00 Temperature 97.9 F 98 F 97.8 F Pulse Rate 89 82 76 Respiratory Rate 20 20 18 Blood Pressure 131/69 149/74 H 155/93 H Pulse Oximetry 99 98 98 Intake & Output 05/18/18 05/19/18 05/19/18 18:59 06:59 18:59 Intake Total 960 / 960 Balance 960 / 960 Weight 87 kg Intake: Oral 960 / 960 Other: # Voids 5 Date of Last Bowel Movement 05/18/18 05/17/18 # Bowel Movements 2 <Oscar Fournier - 05/19/18 11:28> Vital Signs 05/18/18 12:00 05/18/18 16:00 12/26/18 20:00 Temperature 97.6 F 97.7 F 97.2 F L Pulse Rate 86 78 83 Respiratory Rate 18 18 20 Blood Pressure 149/70 H 145/72 H 166/85 H Pulse Oximetry 98 100 100 05/19/18 00:00 05/19/18 04:00 Temperature 97.9 F 98 F Pulse Rate 89 82 Respiratory Rate 20 20 Blood Pressure 131/69 149/74 H Pulse Oximetry 99 98 Intake & Output 05/18/18 05/19/18 05/19/18 18:59 06:59 18:59 Intake Total 960 / 960 Balance 960 / 960 Weight 87 kg Intake: Oral 960 / 960 Other: # Voids 5 Date of Last Bowel Movement 05/18/18 05/17/18 # Bowel Movements 2 <Andre Torres Leslie - 05/19/18 09:12> Narrative: GENERAL: Well-nourished, well-developed patient. No acute distress. SKIN: Surgical wound bed on medial right ankle with erythema that has regressed since demarcation yesterday. Area less intensely erythematous without exudate or discharge. Area still warm to the touch. No fluctuance or induration noted. No dehiscence of sutures. CARDIOVASCULAR: Regular rate and rhythm without obvious murmurs, gallops, or rubs. RESPIRATORY: Breath sounds equal bilaterally. No accessory muscle use. CTAB. GASTROINTESTINAL: Abdomen soft, non-tender, nondistended. BS WNL. MUSCULOSKELETAL: No cyanosis or edema. Strength grossly WNL. NEURO/PSYCH: Afocal. Awake, alert, and oriented x3. <Andre Torres Leslie - 05/19/18 10:44> Assessment and Plan - Assessment (1) Surgical wound infection Code(s): T81.49XA - Infection following a procedure, other surgical site, initial encounter Status: Acute (2) Hypertension Code(s): I10 - Essential (primary) hypertension Status: Acute (3) Tobacco abuse Code(s): Z72.0 - Tobacco use Status: Acute (4) Dark stools Code(s): R19.5 - Other fecal abnormalities Status: Resolved (5) Nausea & vomiting Code(s): R11.2 - Nausea with vomiting, unspecified Status: Resolved (6) Chronic hepatitis C Code(s): B18.2 - Chronic viral hepatitis C Status: Acute <Oscar Fournier - 05/19/18 11:28> (1) Surgical wound infection Code(s): T81.49XA - Infection following a procedure, other surgical site, initial encounter Status: Acute Plan: Postoperative infection complicated by patient continuing to work on her feet several hours a day as well as smoking. Plan: -Continue linezolid 600 p.o. every 12 (05/16) -ID on board, Patient to be discharged on oral Zyvox, case management reports insurance will cover -Blood cultures 05/15 NGTD -Patient to be reevaluated by podiatry today -Discharge pending erythema regression Hospital course: -MRI of the foot shows subcutaneous swelling noted throughout the right medial ankle and foot without underlying subcutaneous abscess. Minimal nonspecific edema noted along the medial aspect of the talar dome consistent with possible bone bruise chronic edema related to arthritis. Moderate arthritic changes noted involving the first MTP joint with subcortical changes of the first metatarsal head -Vancomycin (05/15-05/16) -Linezolid (05/16) (2) Hypertension Code(s): I10 - Essential (primary) hypertension Status: Acute Plan: Patient continues to have increased blood pressures ranging in the 160s to high 140s. -Increase HCTZ to 50 milligrams daily (3) Tobacco abuse Code(s): Z72.0 - Tobacco use Status: Acute Plan: Patient has history of cigarette abuse for over 33 years. Counseled on tobacco cessation -Nicotine patches will be avoided due to nonhealing wound in the extremity (4) Dark stools Code(s): R19.5 - Other fecal abnormalities Status: Resolved Plan: Patient reports a 1 day history of almost black stools. Hemodynamically stable without anemia. Patient no longer endorsing dark stools. - Trend H/H (5) Nausea & vomiting Code(s): R11.2 - Nausea with vomiting, unspecified Status: Resolved Plan: Patient reports 4 episodes of bilious nonbloody vomiting prior to arrival, has resolved with nausea medication -Zofran PRN (6) Chronic hepatitis C Code(s): B18.2 - Chronic viral hepatitis C Status: Acute Plan: Patient reports history of chronic hep C infection. -No action required at this time <Andre Torres - 05/19/18 10:41> - Attending Attestation Patient case discussed with resident physicians I have independently examined the patient I have read the above note and agree with the assessment and plan as discussed with me I was involved in all medical decision making for this patient Awaiting infectious disease and podiatry evaluation today -Patient appears to be moderately improved clinically -Continue antibiotics with Zyvox Oscar Fournier MD <Oscar Fournier - 05/19/18 11:28>
[2018-05-19 09:55] LABS: Calcium 8.8 mg/dL (8.5-10.1); Potassium 4.5 meq/L (3.5-5.1)
--- NOTE | 2018-05-19 16:50 | P.PNPOD ---
Subjective Interval history: Patient seen bedside. Denies any nausea vomiting fevers. Reports chills. States she would like to be back to work by May 24. Physical Exam Vital signs: Vital Signs 05/18/18 20:00 05/19/18 00:00 05/19/18 04:00 Temperature 97.2 F L 97.9 F 98 F Pulse Rate 83 89 82 Respiratory Rate 20 20 20 Blood Pressure 166/85 H 131/69 149/74 H Pulse Oximetry 100 99 98 05/19/18 08:00 05/19/18 12:00 Temperature 97.8 F 97.7 F Pulse Rate 76 83 Respiratory Rate 18 18 Blood Pressure 155/93 H 160/80 H Pulse Oximetry 98 100 Intake & Output 05/18/18 05/19/18 05/19/18 18:59 06:59 18:59 Intake Total 960 / 960 Balance 960 / 960 Weight 87 kg Intake: Oral 960 / 960 Other: # Voids 5 Date of Last Bowel Movement 05/18/18 05/17/18 # Bowel Movements 2 Narrative: Right foot medial incision with sutures intact. Surrounding erythema and edema noted to incision line. Receding erythema noted. DP PT 2 out of 4 and intact. Capillary refill time under 3 seconds and intact to right foot. Medications and Allergies Active Medications: Active Medications Acetaminophen (Tylenol) 650 mg PO Q4H PRN PRN Reason: Acute Pain 1-2 Hydrocodone Bitart/Acetaminophen ([place] 10/325) 1 tab PO Q4H PRN PRN Reason: PAIN SCALE 6 TO 10 Last Admin: 05/19/18 15:37 Dose: 1 tab Hydrocodone Bitart/Acetaminophen ([place] 5/325) 1 tab PO Q4H PRN PRN Reason: PAIN SCALE 3 TO 5 Al Hydroxide/Mg Hydroxide (Milk Of Magnesia Liq) 30 ml PO Q12H PRN PRN Reason: Mild Constipation Bisacodyl (Dulcolax Supp) 10 mg RECTAL DAILY PRN PRN Reason: SEVERE CONSITIPATION Hydrochlorothiazide (Hydrodiuril) 50 mg PO DAILY [facility] Last Admin: 05/19/18 08:41 Dose: 50 mg Ibuprofen (Motrin) 400 mg PO Q6HR PRN PRN Reason: PAIN SCALE 1 TO 2 Ketorolac Tromethamine (Toradol Inj) 30 mg IV.PUSH Q6H [facility] [place] Stop: 05/21/18 12:59 Last Admin: 05/19/18 12:16 Dose: 30 mg Lactobacillus Acidophilus (Lactinex Pkt) 1 gm PO TID [facility] [place] Last Admin: 05/19/18 12:17 Dose: 1 gm Lactulose (Lactulose Liq) 30 ml PO DAILY PRN PRN Reason: SEVERE CONSITIPATION Linezolid (Zyvox) 600 mg PO Q12HR [facility] [place] Last Admin: 05/19/18 08:01 Dose: 600 mg Morphine Sulfate (Morphine Inj) 4 mg IV.PUSH Q3H PRN PRN Reason: BREAKTHROUGH PAIN Last Admin: 05/19/18 12:17 Dose: 4 mg Naloxone HCl (Narcan Inj) 0.4 mg IV.PUSH UNSCH PRN PRN Reason: SEE LABEL COMMENTS Ondansetron HCl (Zofran Inj) 4 mg IV.PUSH Q6H PRN PRN Reason: NAUSEA OR VOMITING Last Admin: 05/17/18 16:08 Dose: 4 mg Patch Removal (Remove Old Patch) 1 each T-DERMAL DAILY [facility] Last Admin: 05/19/18 08:01 Dose: Not Given Sennosides (Senokot) 17.2 mg PO Q12H PRN PRN Reason: Moderate Constipation Sodium Chloride (Ns Flush) 2 ml IV.FLUSH BID [facility] Last Admin: 05/19/18 08:01 Dose: 2 ml Sodium Chloride (Ns Flush) 2 ml IV.FLUSH PRN PRN PRN Reason: FLUSH AFTER USING IV ACCESS Allergies Allergy/AdvReac Type Severity Reaction Status Date / Time codeine AdvReac Severe itching Verified 04/25/18 08:09 Home Medications Medication Instructions Recorded Confirmed Type No Known Home Medications 04/25/18 05/15/18 History Results - Labs CBC & Chem 7: 05/19/18 06:48 05/19/18 08:55 Laboratory Results - last 24 hr 05/19/18 05/19/18 06:48 08:55 WBC 3.1 L RBC 3.47 L Hgb 9.8 L Hct 29.1 L MCV 83.8 MCH 28.2 MCHC 33.6 RDW 15.7 Plt Count 99 L MPV 7.4 Prelim Diff (Auto) Slide review pending Neut % (Auto) 54.2 Lymph % (Auto) 32.3 [place] % (Auto) 10.6 H Eos % (Auto) 2.5 Baso % (Auto) 0.4 Neut # (Auto) 1.7 L Lymph # (Auto) 1.0 Terry # (Auto) 0.3 Eos # (Auto) 0.1 Baso # (Auto) 0.0 WBC Differential Manual diff final Seg Neuts % (Manual) 60 Band Neuts % (Manual) 10 H Lymphocytes % (Manual) 23 Monocytes % (Manual) 7 Abs Neuts (Manual) 2.2 Differential Comment . Platelet Estimate Low L Platelet Morphology Normal Basophilic Stippling Faint H Ovalocytes 1+ H Sodium 139 Potassium 4.5 Chloride 105 Carbon Dioxide 30.0 Anion Gap 4 L BUN 31 H Creatinine 0.72 Estimated GFR 87 L Random Glucose 85 Calcium 8.8 Microbiology 05/15/18 13:53 Blood - Peripheral Aerobic Blood Culture - Preliminary No growth in 4 days 05/15/18 13:53 Blood - Peripheral Anaerobic Blood Culture - Preliminary No growth in 4 days 05/15/18 13:59 Blood - Peripheral Aerobic Blood Culture - Preliminary No growth in 4 days 05/15/18 13:59 Blood - Peripheral Anaerobic Blood Culture - Preliminary No growth in 4 days Assessment and Plan - Assessment (1) Cellulitis of right foot Code(s): L03.115 - Cellulitis of right lower limb Status: Acute (2) Ulcer of right foot with fat layer exposed Code(s): L97.512 - Non-pressure chronic ulcer of other part of right foot with fat layer exposed Status: Acute (3) Surgical wound infection Code(s): T81.49XA - Infection following a procedure, other surgical site, initial encounter Status: Acute - Plan 47-year-old female with right foot cellulitis surrounding surgical incision Patient examined and evaluated with all questions answered Place Xeroform and dry sterile dressing to right foot Will reevaluate in [address] Garcia should like patient to stay in house until all erythema and cellulitis has resolved as patient does have a history of noncompliance Limited weightbearing to right foot with heel touch in surgical shoe Will place daily wound care orders for nursing
--- NOTE | 2018-05-19 18:15 | P.PNID ---
Subjective Remarks: Ms. 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 This was diagnosed as squamous cell carcinoma. 3 days after this she had second surgery for further removal of the cancer. At this time she was told that she had methicillin sensitive staph aureus and was treated outpatient with clindamycin and reports having completed the entire course. Patient also reports being on Keflex and as outpatient. Patient goes on to report that she has a prior history of MRSA infections. A week after the second surgery she was supposed to follow-up with the surgeon but did not and decided to wait for her appointment on May 18. Subsequently she started having pain and discomfort at the incision site as well as a burning sensation just proximal to it. She also found blisters overlying the wound bed and experienced fevers with diaphoresis and chills. She also reported thick yellow-green discharge from the wound bed. Patient took [place] tablets for pain. She also experienced watery diarrhea and nonbilious vomiting. ID consult for evaluation and M'ment of Right foot cellulitis. PMHx: Chronic Hep C, squamous cell carcinoma Overnight events reviewed. No fever No rash No diarrhea Antibiotics: Zyvox oral Lines: Lines okay Past Medical History: Reviewed. Allergies/Adverse Reactions: Allergies codeine Adverse Reaction (Severe, Verified 04/25/18 08:09) itching Objective Vital Signs 05/18/18 20:00 05/19/18 00:00 05/19/18 04:00 Temperature 97.2 F L 97.9 F 98 F Pulse Rate 83 89 82 Respiratory Rate 20 20 20 Blood Pressure 166/85 H 131/69 149/74 H Pulse Oximetry 100 99 98 05/19/18 08:00 05/19/18 12:00 05/19/18 16:00 Temperature 97.8 F 97.7 F 97.9 F Pulse Rate 76 83 98 H Respiratory Rate 18 18 18 Blood Pressure 155/93 H 160/80 H 158/68 H Pulse Oximetry 98 100 98 Intake & Output 05/18/18 05/19/18 05/19/18 18:59 06:59 18:59 Intake Total 960 / 960 Balance 960 / 960 Weight 87 kg Intake: Oral 960 / 960 Other: # Voids 5 Date of Last Bowel Movement 05/18/18 05/17/18 # Bowel Movements 2 05/15/18 13:53 Blood - Peripheral Aerobic Blood Culture - Preliminary No growth in 4 days 05/15/18 13:53 Blood - Peripheral Anaerobic Blood Culture - Preliminary No growth in 4 days 05/15/18 13:59 Blood - Peripheral Aerobic Blood Culture - Preliminary No growth in 4 days 05/15/18 13:59 Blood - Peripheral Anaerobic Blood Culture - Preliminary No growth in 4 days Lab - Hematology Results 05/18/18 05/19/18 03:43 06:48 WBC 3.2 L 3.1 L RBC 3.59 L 3.47 L Hgb 10.2 L 9.8 L Hct 30.3 L 29.1 L MCV 84.4 83.8 MCH 28.4 28.2 MCHC 33.6 33.6 RDW 15.8 15.7 Plt Count 126 L 99 L MPV 7.4 7.4 Prelim Diff (Auto) Slide review pending Neut % (Auto) 48.3 54.2 Lymph % (Auto) 36.3 32.3 [place] % (Auto) 11.0 H 10.6 H Eos % (Auto) 3.9 2.5 Baso % (Auto) 0.5 0.4 Neut # (Auto) 1.6 L 1.7 L Lymph # (Auto) 1.2 1.0 [place] # (Auto) 0.4 0.3 Eos # (Auto) 0.1 0.1 Baso # (Auto) 0.0 0.0 WBC Differential . Manual diff final Seg Neuts % (Manual) 60 Band Neuts % (Manual) 10 H Lymphocytes % (Manual) 23 Monocytes % (Manual) 7 Abs Neuts (Manual) 2.2 Differential Comment Auto diff final . Platelet Estimate Low L Platelet Morphology Normal Basophilic Stippling Faint H Ovalocytes 1+ H Lab - Chemistry Results 05/19/18 08:55 Sodium 139 Potassium 4.5 Chloride 105 Carbon Dioxide 30.0 Anion Gap 4 L BUN 31 H Creatinine 0.72 Estimated GFR 87 L Random Glucose 85 Calcium 8.8 Imaging: ITS Impressions Foot X-Ray 05/15/18 13:46 CONCLUSION: No acute bony abnormality is seen. Questionable changes in the anterior heel fat pad. Foot MRI 05/15/18 21:58 CONCLUSION: 1. Subcutaneous swelling is noted throughout the right medial ankle and foot. No underlying subcutaneous abscess is noted. 2. Minimal nonspecific edema is noted involving the medial aspect of the talar dome consistent with possible bone bruise or chronic edema related to arthritic change. No definite underlying fracture is confirmed. 3. Moderate arthritic changes are noted involving the first metatarsophalangeal joint with subcortical changes of the first metatarsal head. Physical Exam: GENERAL: Well-nourished well-developed, not in acute distress SKIN: Cool and dry, no generalized rash HEAD: Atraumatic. Normocephalic. No temporal or scalp tenderness. EYES: Pupils equal round and reactive. Scleral icterus. No injection or drainage. No petechia ENT: Nothing abnormal detected NECK: Trachea midline. Supple, nontender, no meningeal signs. CARDIOVASCULAR: HS audible. RESPIRATORY: Clear to auscultation bilaterally. GASTROINTESTINAL: Abdomen soft nontender. MUSCULOSKELETAL: Right LE with sutures in place at ankle level. There is an ink marking and the area of erythema seems to have regressed some. But the center portion where the sutures seems to be peaking with yellow discoloration in places ? early abscess. erythema improved but area under sutures indurated, boggy and tender. NEUROLOGICAL: Alert oriented 3. Nonfocal. Psych cooperative IV line sites ok. Assessment and Plan - Plan Right foot cellulitis possible abscess. Recent surgeries for excision of sq cell Ca. H/o Hepatitis C Smoking Recs: Continue oral zyvox Observe clinically for worsening infection. efrem Marx showed her initial images agrees erythema improved. If continues to improve ok to discharge on oral zyvox for 2 weeks and follow up with Podiatry in clinic. will examine foot again tomorrow if not improving will consider reimaging or exploration.
[2018-05-20] MEDS: Ketorolac Inj 30 MG/ML (IVP) Vial IV.PUSH SCH ×3 (00:39→12:37)
[2018-05-20] MEDS: Morphine Inj 4 MG/ML Vial IV.PUSH PRN ×3 (02:45→11:28)
[2018-05-20] MEDS: Linezolid 600 MG Tablet PO SCH (08:15)
[2018-05-20] MEDS: hydroCHLOROthiazide 25 MG Tablet PO SCH (08:16)
[2018-05-20 09:13] VITALS: RESP 18
--- NOTE | 2018-05-20 11:59 | P.PNFP ---
Subjective Interval history: Doing well, has been avoiding walking directly on foot. Taking medication daily. No new complaints. <Abid Tonya Rea N - 05/20/18 11:58> Results - Labs Result diagrams: 05/19/18 06:48 05/19/18 08:55 <IrlandaOscar - 05/20/18 16:09> Physical Exam Vital signs: Vital Signs 05/19/18 20:00 05/20/18 00:00 05/20/18 04:00 Temperature 99.2 F 97.9 F 97.7 F Pulse Rate 91 H 89 75 Respiratory Rate 18 17 17 Blood Pressure 160/86 H 131/88 126/73 Pulse Oximetry 98 98 96 05/20/18 08:00 05/20/18 08:24 05/20/18 10:43 Temperature 97.9 F Pulse Rate 76 Respiratory Rate 18 18 18 Blood Pressure 155/75 H Pulse Oximetry 96 05/20/18 11:13 05/20/18 11:30 05/20/18 12:00 Temperature 97.6 F Pulse Rate 73 Respiratory Rate 18 18 18 Blood Pressure 151/72 H Pulse Oximetry 97 05/20/18 13:07 05/20/18 15:02 Temperature Pulse Rate Respiratory Rate 18 18 Blood Pressure Pulse Oximetry Intake & Output 05/19/18 05/20/18 05/20/18 18:59 06:59 18:59 Intake Total 480 / 480 Balance 480 / 480 Weight 87 kg Intake: Oral 480 / 480 Other: # Voids 4 # Bowel Movements 0 <Oscar Fournier - 05/20/18 16:09> Vital Signs 05/19/18 12:00 05/19/18 16:00 05/19/18 20:00 Temperature 97.7 F 97.9 F 99.2 F Pulse Rate 83 98 H 91 H Respiratory Rate 18 18 18 Blood Pressure 160/80 H 158/68 H 160/86 H Pulse Oximetry 100 98 98 05/20/18 00:00 05/20/18 04:00 05/20/18 08:00 Temperature 97.9 F 97.7 F 97.9 F Pulse Rate 89 75 76 Respiratory Rate 17 17 18 Blood Pressure 131/88 126/73 155/75 H Pulse Oximetry 98 96 96 05/20/18 08:24 05/20/18 10:43 05/20/18 11:13 Temperature Pulse Rate Respiratory Rate 18 Blood Pressure Pulse Oximetry Intake & Output 05/19/18 05/20/18 05/20/18 18:59 06:59 18:59 Intake Total 480 / 480 Balance 480 / 480 Weight 87 kg Intake: Oral 480 / 480 Other: # Voids 4 # Bowel Movements 0 <Tonya Torres - 05/20/18 11:58> Narrative: GENERAL: Well-nourished, well-developed patient. No acute distress. SKIN: Surgical wound bed on medial right ankle with erythema that has regressed since demarcation yesterday. Area less intensely erythematous without exudate or discharge. No fluctuance or induration noted. No dehiscence of sutures. CARDIOVASCULAR: Regular rate and rhythm without obvious murmurs, gallops, or rubs. RESPIRATORY: Breath sounds equal bilaterally. No accessory muscle use. CTAB. GASTROINTESTINAL: Abdomen soft, non-tender, nondistended. BS WNL. MUSCULOSKELETAL: normal ROM NEURO/PSYCH: Afocal. Awake, alert, and oriented x3. <Tonya Torres - 05/20/18 11:58> Assessment and Plan - Assessment (1) Surgical wound infection Code(s): T81.49XA - Infection following a procedure, other surgical site, initial encounter Status: Acute (2) Hypertension Code(s): I10 - Essential (primary) hypertension Status: Acute (3) Tobacco abuse Code(s): Z72.0 - Tobacco use Status: Acute (4) Dark stools Code(s): R19.5 - Other fecal abnormalities Status: Resolved (5) Nausea & vomiting Code(s): R11.2 - Nausea with vomiting, unspecified Status: Resolved (6) Chronic hepatitis C Code(s): B18.2 - Chronic viral hepatitis C Status: Acute <IrlandaOscar - 05/20/18 16:09> (1) Surgical wound infection Code(s): T81.49XA - Infection following a procedure, other surgical site, initial encounter Status: Acute Plan: Postoperative infection complicated by patient continuing to work on her feet several hours a day as well as smoking. Plan: -Continue linezolid 600 p.o. every 12 (05/16) -ID on board, Patient to be discharged on oral Zyvox, case management reports insurance will cover -Blood cultures 05/15 NGTD -Patient to be reevaluated by podiatry for possible DC Hospital course: -MRI of the foot shows subcutaneous swelling noted throughout the right medial ankle and foot without underlying subcutaneous abscess. Minimal nonspecific edema noted along the medial aspect of the talar dome consistent with possible bone bruise chronic edema related to arthritis. Moderate arthritic changes noted involving the first MTP joint with subcortical changes of the first metatarsal head -Vancomycin (05/15-05/16) -Linezolid (05/16) (2) Hypertension Code(s): I10 - Essential (primary) hypertension Status: Acute Plan: Patient continues to have increased blood pressures. HCTZ 50 mg daily currently Start lisinopril 5 mg daily (3) Tobacco abuse Code(s): Z72.0 - Tobacco use Status: Acute Plan: Patient has history of cigarette abuse for over 33 years. Counseled on tobacco cessation -Nicotine patches will be avoided due to nonhealing wound in the extremity (4) Dark stools Code(s): R19.5 - Other fecal abnormalities Status: Resolved (5) Nausea & vomiting Code(s): R11.2 - Nausea with vomiting, unspecified Status: Resolved (6) Chronic hepatitis C Code(s): B18.2 - Chronic viral hepatitis C Status: Acute Plan: Patient reports history of chronic hep C infection. -No action required at this time - needs outpatient f/u <Tonya Torres - 05/20/18 11:54> - Assessment and Plan Discharge Planning: Possible today or tomorrow, pending podiatry clearance <Tonya Torres - 05/20/18 11:58> - Attending Attestation Patient case discussed with resident physicians I have independently examined the patient I have read the above note and agree with the assessment and plan as discussed with me I was involved in all medical decision making for this patient Patient discussed with both infectious disease and podiatry Patient will be discharged home today with 10 more days of Linezolid p.o. Follow-up with podiatry as an outpatient Oscar Fournier MD <Oscar Fournier - 05/20/18 16:09>
[2018-05-20] MEDS: Lisinopril 5 MG Tablet PO SCH ×2 (12:37→12:41)
[2018-05-20 13:02] VITALS: BP 151/72; PULSE 73; TEMP 97.6; O2SAT 97
--- NOTE | 2018-05-20 13:52 | P.PNID ---
Subjective Remarks: Ms. 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 This was diagnosed as squamous cell carcinoma. 3 days after this she had second surgery for further removal of the cancer. At this time she was told that she had methicillin sensitive staph aureus and was treated outpatient with clindamycin and reports having completed the entire course. Patient also reports being on Keflex and as outpatient. Patient goes on to report that she has a prior history of MRSA infections. A week after the second surgery she was supposed to follow-up with the surgeon but did not and decided to wait for her appointment on May 18. Subsequently she started having pain and discomfort at the incision site as well as a burning sensation just proximal to it. She also found blisters overlying the wound bed and experienced fevers with diaphoresis and chills. She also reported thick yellow-green discharge from the wound bed. Patient took [place] tablets for pain. She also experienced watery diarrhea and nonbilious vomiting. ID consult for evaluation and M'ment of Right foot cellulitis. PMHx: Chronic Hep C, squamous cell carcinoma Overnight events reviewed. No fever No rash No diarrhea Clinically remarkably improved Right foot. Antibiotics: Zyvox oral Lines: Lines okay Past Medical History: Reviewed. Allergies/Adverse Reactions: Allergies lisinopril Allergy (Verified 05/20/18 12:42) Cough codeine Adverse Reaction (Severe, Verified 04/25/18 08:09) itching Objective Vital Signs 05/19/18 16:00 05/19/18 20:00 05/20/18 00:00 Temperature 97.9 F 99.2 F 97.9 F Pulse Rate 98 H 91 H 89 Respiratory Rate 18 18 17 Blood Pressure 158/68 H 160/86 H 131/88 Pulse Oximetry 98 98 98 05/20/18 04:00 05/20/18 08:00 05/20/18 08:24 Temperature 97.7 F 97.9 F Pulse Rate 75 76 Respiratory Rate 17 18 18 Blood Pressure 126/73 155/75 H Pulse Oximetry 96 96 05/20/18 10:43 05/20/18 11:13 05/20/18 11:30 Temperature Pulse Rate Respiratory Rate 18 18 18 Blood Pressure Pulse Oximetry 05/20/18 12:00 Temperature 97.6 F Pulse Rate 73 Respiratory Rate 18 Blood Pressure 151/72 H Pulse Oximetry 97 Intake & Output 05/19/18 05/20/18 05/20/18 18:59 06:59 18:59 Intake Total 480 / 480 Balance 480 / 480 Weight 87 kg Intake: Oral 480 / 480 Other: # Voids 4 # Bowel Movements 0 05/15/18 13:53 Blood - Peripheral Aerobic Blood Culture - Final No growth in 5 days 05/15/18 13:53 Blood - Peripheral Anaerobic Blood Culture - Final No growth in 5 days 05/15/18 13:59 Blood - Peripheral Aerobic Blood Culture - Final No growth in 5 days 05/15/18 13:59 Blood - Peripheral Anaerobic Blood Culture - Final No growth in 5 days Lab - Hematology Results 05/19/18 06:48 WBC 3.1 L RBC 3.47 L Hgb 9.8 L Hct 29.1 L MCV 83.8 MCH 28.2 MCHC 33.6 RDW 15.7 Plt Count 99 L MPV 7.4 Prelim Diff (Auto) Slide review pending Neut % (Auto) 54.2 Lymph % (Auto) 32.3 [place] % (Auto) 10.6 H Eos % (Auto) 2.5 Baso % (Auto) 0.4 Neut # (Auto) 1.7 L Lymph # (Auto) 1.0 [place] # (Auto) 0.3 Eos # (Auto) 0.1 Baso # (Auto) 0.0 WBC Differential Manual diff final Seg Neuts % (Manual) 60 Band Neuts % (Manual) 10 H Lymphocytes % (Manual) 23 Monocytes % (Manual) 7 Abs Neuts (Manual) 2.2 Differential Comment . Platelet Estimate Low L Platelet Morphology Normal Basophilic Stippling Faint H Ovalocytes 1+ H Lab - Chemistry Results 05/19/18 08:55 Sodium 139 Potassium 4.5 Chloride 105 Carbon Dioxide 30.0 Anion Gap 4 L BUN 31 H Creatinine 0.72 Estimated GFR 87 L Random Glucose 85 Calcium 8.8 Imaging: ITS Impressions Foot X-Ray 05/15/18 13:46 CONCLUSION: No acute bony abnormality is seen. Questionable changes in the anterior heel fat pad. Foot MRI 05/15/18 21:58 CONCLUSION: 1. Subcutaneous swelling is noted throughout the right medial ankle and foot. No underlying subcutaneous abscess is noted. 2. Minimal nonspecific edema is noted involving the medial aspect of the talar dome consistent with possible bone bruise or chronic edema related to arthritic change. No definite underlying fracture is confirmed. 3. Moderate arthritic changes are noted involving the first metatarsophalangeal joint with subcortical changes of the first metatarsal head. Physical Exam: GENERAL: Well-nourished well-developed, not in acute distress SKIN: Cool and dry, no generalized rash HEAD: Atraumatic. Normocephalic. No temporal or scalp tenderness. EYES: Pupils equal round and reactive. Scleral icterus. No injection or drainage. No petechia ENT: Nothing abnormal detected NECK: Trachea midline. Supple, nontender, no meningeal signs. CARDIOVASCULAR: HS audible. RESPIRATORY: Clear to auscultation bilaterally. GASTROINTESTINAL: Abdomen soft nontender. MUSCULOSKELETAL: Right LE with sutures in place at ankle level. Erythema improved remarkably with minimal pink discoloration. Suture site dried up. Mild tenderness. NEUROLOGICAL: Alert oriented 3. Nonfocal. Psych cooperative IV line sites ok. Assessment and Plan - Plan Right foot cellulitis possible abscess. Recent surgeries for excision of sq cell Ca. H/o Hepatitis C Smoking Recs: Continue oral zyvox Observe clinically for worsening infection. efrem Marx showed her initial images agrees erythema improved. Ok to discharge from ID standpoint for 7-10 days of oral zyvox. Will sign off please call back if any change in clinical status or questions.
[2018-05-20] MEDS ORDERED: amLODIPine 5 MG Tablet PO SCH (14:00)
--- NOTE | 2018-05-23 20:12 | P.DS ---
Date of admission: 05/15/18 16:55 Primary care physician: No Primary Care Physician Brief History from admission: This patient is a 47-year-old female who presented to the ED after a 3-day history of increased swelling, pain, discharge of right medial ankle status post 1 week of squamous cell excisement. Patient reports that on Apr 30 she underwent surgery for a squamous cell carcinoma.Three days later patient had second surgery for continued removal of cancer. At this time she was found to have MRSA and treated outpatiently with clindamycin and reports finishing the entire course. A week later she was supposed to follow up with surgeon but did not and decided to wait for her other appointment on the . In the last couple of days she reports a pain described as twisting like "someone is twisting a rope" proximal to the incision site as well as a burning sensation just proximal to it. Over the wound itself she describes the pain as sharp and stabbing that is constant and nonradiating. Over this time she has also had blisters overlying the wound bed and has experienced fevers accompanied by diaphoresis and chills. She has also had a thick yellow almost green discharge from the wound bed. During this time patient took norco for pains also took a friends lorcet, tylenol, aleive, and a Percogesic at [facility]. She also experienced watery diarrhea that looked almost black that stared last night as well as 4 episodes of bilious non bloody vomiting. PMHx: Chronic Hep C, squamous cell carcinoma Surgical HX:Radical hysterectomy due to cervical cancer (did not undergo chemo or radiation) , appendectomy at same time of hysterectomy in 2008, Cholecystomy in 2009, Squamous cell excisement in Apr 2018 Meds: None FamHx: Father at 72 CHF had NM and stroke. Mom at 57 due to cirrhosis of the liver due to alcoholism. Allergies: Codeine makes her a little itchy Social: Lives with befriend hedy. Previously , now . Works for [employer] ([employer] in [facility]. No children. Smoked half a pack a day for 33 years. Does not drink, denies any drug use. Code: Full PCP: None Mat Maker: Dr. Garcia DS: Diagnosis - Discharge Diagnosis (1) Surgical wound infection Status: Acute (2) Hypertension Status: Acute (3) Tobacco abuse Status: Acute (4) Dark stools Status: Resolved (5) Nausea & vomiting Status: Resolved (6) Chronic hepatitis C Status: Acute DS: Medications - Discharge Medications Prescriptions: amlodipine [Norvasc] 5 mg PO DAILY #30 tab hydrochlorothiazide 25 mg PO DAILY #90 tab linezolid [Zyvox] 600 mg PO Q12HR 6 Days #20 tab DS: Summary Hospital Course: It was found that patient had sustained postoperative infection complicated by patient continuing to work on her feet several hours a day as well as smoking. Hospital course: -MRI of the foot shows subcutaneous swelling noted throughout the right medial ankle and foot without underlying subcutaneous abscess. Minimal nonspecific edema noted along the medial aspect of the talar dome consistent with possible bone bruise chronic edema related to arthritis. Moderate arthritic changes noted involving the first MTP joint with subcortical changes of the first metatarsal head. Podiatry (Dr. Garcia) infectious disease was consulted. Blood cultures were ordered. Showed no growth in 48 hours. Patient was placed on the following antibiotics below: -S/P vancomycin (05/15-05/16) -Linezolid (05/16-05/20) Patient was then discharged on oral Zyvox. His management was consulted to facilitate patient being able to obtain medications outpatient. This was successful. Patient remained in the hospital and was followed daily by infectious disease and podiatry, who assessed for resolution of erythema at the site of the operation. When this was seen, patient was then cleared and discharged. - Time Spent with Patient Total time spent providing and/or coordinating discharge services: Greater than 30 minutes - Quality: VTE Deep Vein Thrombosis/Pulmonary Embolism Present on Admission: No Exam Narrative: GENERAL: Well-nourished, well-developed patient. No acute distress. SKIN: Surgical wound bed on medial right ankle with erythema that has regressed since demarcation yesterday. Area less intensely erythematous without exudate or discharge. No fluctuance or induration noted. No dehiscence of sutures. CARDIOVASCULAR: Regular rate and rhythm without obvious murmurs, gallops, or rubs. RESPIRATORY: Breath sounds equal bilaterally. No accessory muscle use. CTAB. GASTROINTESTINAL: Abdomen soft, non-tender, nondistended. BS WNL. MUSCULOSKELETAL: normal ROM NEURO/PSYCH: Afocal. Awake, alert, and oriented x3. Results Procedures completed during hospitalization: N/A - Impressions ITS Impressions Foot X-Ray 05/15/18 13:46 CONCLUSION: No acute bony abnormality is seen. Questionable changes in the anterior heel fat pad. Foot MRI 05/15/18 21:58 CONCLUSION: 1. Subcutaneous swelling is noted throughout the right medial ankle and foot. No underlying subcutaneous abscess is noted. 2. Minimal nonspecific edema is noted involving the medial aspect of the talar dome consistent with possible bone bruise or chronic edema related to arthritic change. No definite underlying fracture is confirmed. 3. Moderate arthritic changes are noted involving the first metatarsophalangeal joint with subcortical changes of the first metatarsal head. Discharge Plan - Discharge Disposition Patient Disposition: Discharge Home - Discharge Condition Condition: Stable - Discharge Order Discharge Orders: Discharge Order (Routine); Ordered 05/20/18 Ordered By: Tonya Merchant R2 ED Use Only Admit Order (Routine); Ordered 05/15/18 Ordered By: Corie Liu - Discharge Details Anticipated Discharge Date: 05/20/18 Discharge Comment: Keep site clean with soap and water. Leave open to air. Avoid walking or placing pressure on foot. - Physicians Team Primary Care Provider: Primary Care Physici,No Attending Provider: Oscar Fournier Other Providers: Shobha Weiss DPM ; Jeimy Lovelace MD
== END 2018-05-20 15:41 | disposition home or self-care (01) | DRG 863 ==
LOC: NEDA 13:18 → NEPC 13:18 → N04 18:28
PROVIDERS: ADMIT Family Medicine; ATTEND Family Medicine
CPT/HCPCS: 73630; 73718; 80048; 80053; 80074; 80202; 83605; 85025; 85651; 85652; 86140; 87040; 90765; 96365; 97161; 99285; J1885; J2270; J2405; J3370; J7040; J7050